=== PATIENT | male | born 1935 | race Hispanic/Latino ===

== ENCOUNTER 2019-03-16 09:07 | Inpatient (IN) | payer MEDICARE, OTHER ==
--- NOTE | 2019-03-16 09:40 | ED PDOC ---
Arrival/HPI - General Time Seen by Provider: 03/16/19 09:18 Historian: Patient - History of Present Illness Narrative History of Present Illness (Text): 03/16/19 09:35 83 year old male, with past medical history of CVA x2 both treated with TPA, Bladder Cancer, A. fibrillation on Coumadin and Metoprolol, HTN, GERD, CHF, CAD, hyperlipidemia, and PVD, presents to the ED for evaluation of worsening shortness of breath associated with dyspnea on exertion and bilateral lower extremity swelling for past couple weeks. Patient additionally notes mild fever but denies any chills or night sweats. He reports taking his medication yesterday, which includes 40mg of Lasix, with improvement to leg swelling. He notes chronic left lower extremity wound, unchanged from previous. Patient denies any other associated somatic complaints. Patient denies any chills, h eadache, dizziness, slurred speech, weakness/numbness, chest pain, diaphoresis, abdominal pain, nausea, vomiting, diarrhea, constipation, back pain, neck pain, or any other complaints. PMD: Dr. Taylor [employer] B[employer]: Dr. Bourgeois Time/Duration: > week Symptom Onset: Gradual Symptom Course: Worsening Activities at Onset: Light Context: Home Past Medical History - Provider Review Nursing Documentation Reviewed: Yes - Infectious Disease Hx of Infectious Diseases: None - Tetanus Immunization Tetanus Immunization: Unknown - Cardiac Hx Cardiac Disorders: Yes Hx Congestive Heart Failure: Yes Hx Hypertension: Yes - Pulmonary Hx Respiratory Disorders: No - Neurological HX Cerebrovascular Accident: Yes - HEENT Hx HEENT Disorder: Yes Hx Cataracts: Yes (GUTIERREZ) - Renal Hx Renal Disorder: No - Endocrine/Metabolic Hx Diabetes Mellitus Type 2: Yes - Hematological/Oncological Hx Cancer: Yes - Integumentary Hx Basal Cell Carcinoma: No Other/Comment: skin in both lower ext hyperpigmented - Musculoskeletal/Rheumatological Hx Musculoskeletal Disorders: Yes - Gastrointestinal Hx Gastroesophageal Reflux: Yes - Genitourinary/Gynecological Hx Genitourinary Disorders: Yes (bladder tumor removed 2010) Hx Prostate Problems: Yes - Psychiatric Hx Psychophysiologic Disorder: No Hx Substance Use: No - Past Surgical History Past Surgical History: Unable to Obtain - Surgical History Other/Comment: pilonidal cyst removed. TURP. Partial Uterotomy - Anesthesia Hx Anesthesia: Yes Hx Anesthesia Reactions: No - Suicidal Assessment Feels Threatened In Home Enviroment: No Family/Social History - Physician Review Nursing Documentation Reviewed: Yes Family/Social History: Unknown Family HX Smoking Status: Never Smoked Hx Alcohol Use: No Hx Substance Use: No Hx Substance Use Treatment: No Allergies/Home Meds Allergies/Adverse Reactions: Allergies No Known Allergies Allergy (Verified 03/16/19 11:40) Home Medications: Home Meds Medication Instructions Recorded Confirmed Warfarin [Coumadin] 3.5 mg PO 1800 03/16/19 03/16/19 Review of Systems - Physician Review All systems were reviewed & negative as marked: Yes - Review of Systems Constitutional: Fevers Eyes: absent: Vision Changes Respiratory: SOB. absent: Cough, Sputum Cardiovascular: Edema, LYONS. absent: Chest Pain Gastrointestinal: absent: Abdominal Pain, Diarrhea, Nausea, Vomiting Genitourinary Male: absent: Dysuria, Frequency, Urinary Output Changes Musculoskeletal: absent: Back Pain, Neck Pain Skin: absent: Rash Neurological: absent: Headache, Dizziness, Focal Weakness Endocrine: absent: Diaphoresis Psychiatric: absent: Anxiety, Depression Physical Exam Vital Signs Reviewed: Yes Vital Signs Temp Pulse Resp BP Pulse Ox 03/16/19 09:18 98.4 F 143 H 18 136/93 H 96 Temperature: Afebrile Blood Pressure: Normal Pulse: Tachycardic Respiratory Rate: Normal Appearance: Positive for: Well-Appearing, Non-Toxic, Comfortable Pain Distress: None Mental Status: Positive for: Alert and Oriented X 3 - Systems Exam Head: Present: Atraumatic, Normocephalic Pupils: Present: PERRL Extroacular Muscles: Present: EOMI Conjunctiva: Present: Normal Mouth: Present: Moist Mucous Membranes Neck: Present: Normal Range of Motion Respiratory/Chest: Present: Good Air Exchange, Other (Mild bibasilar crackles). No: Respiratory Distress, Accessory Muscle Use Cardiovascular: Present: Normal S1, S2, Irregular Rhythm (Irregularly irregular rhythm), Tachycardic. No: Murmurs Abdomen: No: Tenderness, Distention, Peritoneal Signs Back: Present: Normal Inspection Upper Extremity: Present: Normal Inspection. No: Cyanosis, Edema Lower Extremity: Present: Edema (Bilateral +2 pitting edema), Other (Left lower extremity PVD with ulcer superficial to left anterior headley, mild erythema, no foul odor or crepitus.) Neurological: Present: GCS=15, CN II-XII Intact, Speech Normal Skin: Present: Warm, Dry, Normal Color. No: Rashes Psychiatric: Present: Alert, Oriented x 3, Normal Insight, Normal Concentration Medical Decision Making ED Course and Treatment: 03/16/19 09:30 Impression: 83 year old male presents to the Ed for evaluation of worsening shortness of breath associated with dyspnea on exertion and bilateral lower extremity swelling. Differential Diagnosis included but are not limited to Afib with RVR vs. worsening CHF. Plan: -- VBG -- EKG -- Labs -- Chest X-ray -- Cardizem -- IV Fluids -- Blood culture -- Urinalysis -- Reassess and disposition Prior Visits: Notes and results from previous visits were reviewed. Progress Notes: 03/16/19 09:29 EKG reviewed, shows A-fib @145 bpm, no STEMI. 03/16/19 10:13 cardizem given with improvement of HR into the 110's, pt in NAD, notes improvement of symptoms. Labs reviewed, mildly increased lactic without elevated wbc or febrile. BNP elevated: likely CHF exacerbation. XR reviewed: pulmonary vascular congestion, no appreciable consolidation noted. Lasix ordered pt in NAD, paged Dr. Taylor's service 03/16/19 10:[address] Taylor, who is aware and agrees with ED management plan, accepts patient admission to Telemetry under his service. pt agreeable to plan 03/16/19 10:37 Chest X-ray reviewed by radiologist, shows: IMPRESSION: Moderate cardiomegaly. Moderate vascular and interstitial congestion - RAD Interpretation Radiology Orders: 03/16/19 09:19 CHEST PORTABLE [RAD] Stat Orthopedic Specialist: Radiologist - Medication Orders Current Medication Orders: diltiaZEM IVPB 100mg in NS (Cardizem 100mg In Ns) 100 mls @ 5 mls/hr IV .Q20H PRN; Protocol PRN Reason: TITRATE PER MD ORDER Discontinued Medications Diltiazem HCl (Cardizem) 15 mg IVP STAT STA Stop: 03/16/19 09:30 - Scribe Statement The provider has reviewed the documentation as recorded by the Scribe Isaiah Palomino. All medical record entries made by the Scribe were at my direction and personally dictated by me. I have reviewed the chart and agree that the record accurately reflects my personal performance of the history, physical exam, medical decision making, and the department course for this patient. I have also personally directed, reviewed, and agree with the discharge instructions and disposition. Disposition/Present on Arrival - Present on Arrival Any Indicators Present on Arrival: No History of DVT/PE: No History of Uncontrolled Diabetes: No Urinary Catheter: No History Surgical Site Infection Following: None - Disposition Have Diagnosis and Disposition been Completed?: Yes Diagnosis: CHF exacerbation, Atrial fibrillation with RVR Disposition: HOSPITALIZED Disposition Time: 10:17 Patient Problems: Current Active Problems Problem Status Onset CHF exacerbation Acute Atrial fibrillation with RVR Acute Condition: STABLE
[2019-03-16 09:46] LABS: BASO # 0.01 K/mm3 (0.0-2.0); BASO % 0.2 % (0.0-3.0); EOS % 0.6 % (1.5-5.0); HEMOGLOBIN 12.5 g/dL (14.0-18.0); LYMPH # 0.9 (1.2-3.4); LYMPH % 13.5 % (22.0-35.0); MEAN CELL VOLUME 88.1 fl (80.0-105.0); MEAN CORPUSCULAR HEMOGLOBIN 28.1 pg (25.0-35.0); MEAN CORPUSCULAR HGB CONC 31.9 g/dl (31.0-37.0); MEAN PLATELET VOLUME 9.6 fl (7.0-11.0); MONO # 0.7 (0.1-0.6); MONO % 10.7 % (1.0-6.0); RBC 4.45 10^6/uL (3.5-6.1); RED CELL DISTRIBUTION WIDTH 15.6 % (11.5-14.5); WHITE BLOOD COUNT 6.7 10^3/uL (4.5-11.0)
[2019-03-16 09:47] LABS: VENOUS BLOOD GAS BASE EXCESS 2.7 mmol/L (0.0-2.0); VENOUS BLOOD GAS PO2 50 mm/Hg (30-55); VENOUS BLOOD PH 7.41 (7.32-7.43)
[2019-03-16 09:54] LABS: ALB/GLOB RATIO 1.1 (1.1-1.8); ALBUMIN 3.8 g/dL (3.0-4.8); AST/SGOT 27 U/L (17-59); BLOOD UREA NITROGEN 18 mg/dL (7-21); CALCIUM 8.9 mg/dL (8.4-10.5); GFR NON-AFRICAN AMERICAN 58; INR 1.84; PARTIAL THROMBOPLASTIN TIME 36.2 Seconds (26.9-38.3); PROTHROMBIN TIME 20.8 SECONDS (9.4-12.5)
[2019-03-16] MEDS: diltiaZEM IVPB 100mg in NS 100 ML IV PRN (09:55)
[2019-03-16 10:04] LABS: ALT/SGPT < 6 U/L (7-56)
[2019-03-16 10:06] LABS: B-TYPE NATRIURETIC PEPTIDE 4170 pg/mL (0-450); TROPONIN I 0.02 ng/mL
--- NOTE | 2019-03-16 10:30 | RAD ---
Date of service: 03/16/2019 HISTORY: sob COMPARISON: 10/28/2013 TECHNIQUE: 1 view obtained. FINDINGS: LUNGS: Moderate vascular and interstitial congestion PLEURA: No significant pleural effusion identified, no pneumothorax apparent. CARDIOVASCULAR: No aortic atherosclerotic calcification present. Moderate cardiomegaly. Moderate vascular and interstitial congestion OSSEOUS STRUCTURES: No significant abnormalities. VISUALIZED UPPER ABDOMEN: Normal. OTHER FINDINGS: None. IMPRESSION: Moderate cardiomegaly. Moderate vascular and interstitial congestion
[2019-03-16 11:15] LABS: URINE BILIRUBIN NEGATIVE (NEGATIVE); URINE BLOOD NEGATIVE (NEGATIVE); URINE GLUCOSE (UA) NEGATIVE (NEGATIVE); URINE LEUKOCYTE ESTERASE NEGATIVE Leu/uL (NEGATIVE); URINE PROTEIN 30 mg/dL (<30 mg/dL)
[2019-03-16 11:18] LABS: URINE APPEARANCE CLEAR (CLEAR); URINE COLOR YELLOW (YELLOW)
[2019-03-16 11:27] LABS: URINE BACTERIA FEW /hpf; URINE EPITHELIAL CELLS 0 - 2 /hpf (0-5); URINE RBC 0 - 2 /hpf (0-2); URINE WBC 0 - 2 /hpf (0-6)
[2019-03-16 14:07] LABS: VENOUS BLOOD GAS BASE EXCESS 8.1 mmol/L (0.0-2.0); VENOUS BLOOD GAS PO2 116 mm/Hg (30-55); VENOUS BLOOD PH 7.45 (7.32-7.43)
[2019-03-16 15:22] VITALS: BMI 41.9
[2019-03-16] MEDS ORDERED: Influenza Vaccine 60 mcg/0.5 mL SYR (4YR UP) IM ONE (15:22)
[2019-03-16] MEDS ORDERED: Pneumococcal 23-Valent Vaccine IM ONE (15:22)
[2019-03-16] MEDS: Warfarin 3 MG, Warfarin 0.5 MG PO SCH (18:22)
--- NOTE | 2019-03-16 20:14 | CARD ---
APPROVED REPORT Date of service: 03/16/2019 EKG Measurement Heart [id number] <Conclusion> Atrial fibrillation with rapid ventricular response Incomplete right bundle branch block Nonspecific T wave abnormality, probably digitalis effect Abnormal ECG
--- NOTE | 2019-03-16 23:33 | HP ---
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 The patient was admitted to the hospital with shortness of breath and rapid atrial fibrillation. The patient states that he has had increasing shortness of breath and fatigue over the last 4 to 5 days. The patient denies any chest pain, does complain of palpitations. Denies any diaphoresis, nausea, vomiting, lightheadedness or dizziness. REVIEW OF SYSTEMS: Cardiac: Positive palpitations and shortness of breath. Respiratory: Positive for shortness of breath and dyspnea on exertion. Gastrointestinal: Negative for nausea, vomiting or diarrhea. Genitourinary: Negative for frequency, urgency or hematuria. Neurological: Positive only for some mild confusion. SOCIAL HISTORY: The patient is nonsmoker, nondrinker. CONSULTANTS: Dr. 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 He was evaluated in the emergency room and had an elevated BNP, rapid atrial fibrillation and signs of congestive heart failure. PHYSICAL EXAMINATION GENERAL: This is a well-developed, slightly obese white male, lying flat with mild shortness of breath. CARDIAC: Irregularly irregular control with rapid ventricular response. CHEST: Shows decreased breath sounds at both bases, but no rales. ABDOMEN: Obese, but benign. EXTREMITIES: Show chronic stasis dermatitis and edema. NEUROLOGICAL: Grossly intact except for loss of vision bilaterally, decreased visual acuity. Normal strength in the upper and lower extremities. 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 Brayan Taylor MD
[2019-03-17] MEDS: diltiaZEM IVPB 100mg in NS 100 ML IV PRN (04:53)
[2019-03-17] MEDS ORDERED: Digoxin 500 mcg/2ml (0.5 mg/2ml) Inj IVP ONE ×2 (09:28→13:00)
[2019-03-17] MEDS ORDERED: Metoprolol Succinate 50 mg XL Tab PO SCH (10:00)
--- NOTE | 2019-03-17 12:46 | PN ---
DATE: 03/17/2019 SUBJECTIVE: An 83-year-old white male admitted to the hospital with congestive heart failure, rapid atrial fibrillation. The patient has markedly improved on diltiazem drip. His heart rate is still 125. His blood pressure 117/82. He is tolerating his diet well. Vital signs are stable. He is afebrile. BUN and creatinine are stable at 18 and 1.2. He was seen in consultation by Dr. Harper. Plan is to continue treatment to control his rapid atrial fibrillation and his heart failure. Brayan Taylor MD
[2019-03-17] MEDS: Clobetasol 0.05% Oint(15 gm) TOP SCH ×2 (15:35→18:53)
[2019-03-17] MEDS: Warfarin 3 MG, Warfarin 0.5 MG PO SCH (18:53)
[2019-03-18 06:39] LABS: BASO # 0.01 K/mm3 (0.0-2.0); BASO % 0.2 % (0.0-3.0); EOS # 0.1 (0.0-0.7); EOS % 1.4 % (1.5-5.0); HEMOGLOBIN 12.3 g/dL (14.0-18.0); LYMPH # 0.7 (1.2-3.4); LYMPH % 10.9 % (22.0-35.0); MEAN CELL VOLUME 88.6 fl (80.0-105.0); MEAN CORPUSCULAR HGB CONC 31.6 g/dl (31.0-37.0); MEAN PLATELET VOLUME 9.7 fl (7.0-11.0); MONO # 0.7 (0.1-0.6); MONO % 10.1 % (1.0-6.0); RBC 4.39 10^6/uL (3.5-6.1); RED CELL DISTRIBUTION WIDTH 15.3 % (11.5-14.5); WHITE BLOOD COUNT 6.6 10^3/uL (4.5-11.0)
[2019-03-18 06:47] LABS: INR 1.76; PROTHROMBIN TIME 19.9 SECONDS (9.4-12.5)
[2019-03-18 07:14] LABS: LDL CHOLESTEROL 39 mg/dL (0-129)
[2019-03-18 08:01] LABS: ALB/GLOB RATIO 1.1 (1.1-1.8); ALBUMIN 3.4 g/dL (3.0-4.8); ALT/SGPT 12 U/L (7-56); AST/SGOT 28 U/L (17-59); BLOOD UREA NITROGEN 23 mg/dL (7-21); CALCIUM 8.4 mg/dL (8.4-10.5); GFR NON-AFRICAN AMERICAN > 60; HDL CHOLESTEROL 43 mg/dL (29-60)
--- NOTE | 2019-03-18 08:28 | CON ---
DATE: 03/17/2019 CONSULT SERVICE: Cardiology. REASON FOR CONSULTATION: Atrial fibrillation chronic, admitted with rapid rate as well as acute congestive heart failure secondary to systolic dysfunction (acute on chronic). 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 The patient was offered NOAC (new oral anticoagulation), but the patient cannot hold and the patient also got scared from TV commercial, but later on after having the stroke, at that point the patient does not want to take the Coumadin as well because of the frequent blood testing, but later on after the stroke the patient was convinced and was taking Coumadin, being followed by Dr. Culp, [facility]. He lives very close to Dr. Culp's office. The patient denies any chest pain, shortness of breath or any palpitation. PAST MEDICAL HISTORY: Significant for hypertension, hyperlipidemia, chronic atrial fibrillation from many years, initially refused anticoagulation, getting stroke status post tPA and now the patient is on Coumadin. SOCIAL HISTORY: Denies any smoking, denies any history of alcohol abuse, but says that he used to drink everyday, now and then red wine with dinner. CURRENT MEDICATIONS: The patient is taking at home Coumadin 3.5 mg daily, Crestor, metoprolol succinate 50 mg daily, losartan 25 mg daily and Lasix 50 mg daily. REVIEW OF SYSTEMS: As per HPI. PHYSICAL EXAMINATION GENERAL: Height of the patient 5 feet, weight of the patient 114 pounds, body mass index 42 kg/m2. VITAL SIGNS: Temperature afebrile, heart rate 122, blood pressure 101/65. HEENT: PERRLA. Extraocular muscles intact. NECK: Supple. No carotid bruit or thyromegaly. CHEST: Clear to auscultation. HEART: S1 and S2 regular. ABDOMEN: Soft. EXTREMITIES: Clubbing, cyanosis negative. LABORATORY DATA: Telemetry shows AFib with rate of 120. EKG shows AFib with heart rate of 115. Blood workup as follows; WBC 6.7, hemoglobin 12.5,hematocrit 39.2, platelet count 220. Chemistry shows sodium 130, potassium 4.3, chloride 104, carbon dioxide 26, anion gap of 14, BUN 18, creatinine 1.2. BNP 4170. IMPRESSION: An 83-year-old male with past medical history significant for chronic atrial fibrillation, history of cerebrovascular accident in 11/2017, status post tPA, since then the patient is on Coumadin. The patient cannot afford new oral anticoagulation, initially opted for baby aspirin because he also get scared from the TV commercial as well as affordability for new oral anticoagulation, now on Coumadin after the stroke. According to Dr. Culp, I spoke to Dr. 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 RECOMMENDATION: We will given 20 mg IV push Cardizem to slow the rate. Continue anticoagulation. Goal is to keep INR between 2 to 2.5 because the patient had a stroke as well. We will start verapamil to control the heart rate instead of metoprolol and discontinue losartan when the rate is controlled. We will also consider starting Entresto for reduced LV function. We will get an echo to assess LV function and once the patient stabilizes we will send back to Dr. Culp. Interim, we will treat aggressively for heart failure and will continue IV Lasix. Discussed with Dr. Taylor. We will follow with you. Also we will get lipid profile,TSH, and hemoglobin A1c. The patient is not a candidate for cardioversion because of longstanding history of AFib, but we will get echo to assess the chamber size of LV. Thank you Dr. Taylor for providing us the opportunity in taking care of the patient, Cosmo Renteria. Nino Harper MD cc: Brayan Taylor MD
[2019-03-18] MEDS ORDERED: Potassium Chloride 20 mEq ER Tab PO ONE (09:11)
[2019-03-18] MEDS: SACUBITRIL 24mg/VALSARTAN 26mg tab PO SCH ×2 (10:12→18:24)
[2019-03-18] MEDS: Clobetasol 0.05% Oint(15 gm) TOP SCH ×2 (10:18→18:27)
--- NOTE | 2019-03-18 11:50 | PN ---
DATE: 03/18/2019 SUBJECTIVE: An 83-year-old white male, being admitted to the hospital with rapid atrial fibrillation, CHF, stasis dermatitis, and left lower leg ulceration. The patient still has rapid atrial fibrillation; heart rate is 112. Blood pressure 122/71. He is afebrile. Vital signs are stable. BUN and creatinine are stable. Potassium is 3.7. The patient is being switched to Cardizem to control his rapid atrial fibrillation. I have also asked Dr. Greene, in consultation for opinion on his lower leg ulceration which at this point appears dry and stasis dermatitis. Continue on anticoagulation. Physical examination is unchanged. His chest is clear. His heart is irregularly irregular with rapid ventricular response. The patient edema. There is a dry eschar of the lateral left lower leg. Brayan Taylor MD
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
--- NOTE | 2019-03-18 13:45 | PN ---
DATE: 03/18/2019 REASON FOR CONSULTATION AND FOLLOWUP: Atrial fibrillation chronic, atrial fibrillation rapid rate as well as acute decompensated congestive heart failure secondary to acute on chronic systolic dysfunction. SUBJECTIVE: The patient feels better, wanted to go home. PHYSICAL EXAMINATION: GENERAL: Lying flat on the bed, not in apparent distress. VITAL SIGNS: Temperature afebrile, heart rate 87, blood pressure 122/71. HEENT: PERRLA. Extraocular muscles intact. NECK: Supple. No carotid bruits or thyromegaly. CHEST: Clear to auscultation. HEART: S1, S2. Regular. ABDOMEN: Soft. EXTREMITIES: Clubbing, cyanosis negative. LABORATORY DATA: Blood workup: WBC 6.6, hemoglobin 12.3, hematocrit 38.9, platelet count 191. Chemistry showed sodium 139, potassium 3.7, chloride 97, carbon dioxide 37, anion gap 9, BUN 23, creatinine 1.1. IMPRESSION: An 83-year-old man with a past medical history significant for chronic atrial fibrillation, history of cerebrovascular accident in 11/2017, history of tPA, since then, the patient is on Coumadin. Initially the patient refused and reluctant for anticoagulation, being followed by Dr. Bourgeois and lives very close to Dr. Bourgeois's office. Yesterday, I spoke to Dr. Bourgeois on cell phone to get more information about the patient on [phone] and mentioned that no significant history of coronary artery disease, no documentation, and according to him, the coronaries appears to be okay, but history of decompensated heart failure and some element of noncompliance, who admitted yesterday with acute decompensated congestive heart failure, atrial fibrillation with rapid ventricular rate. The patient was started on two doses of digoxin and verapamil, rate is well controlled, started aggressive diuresis. RECOMMENDATION: Continue anticoagulation. The patient was started on IV digoxin two doses, started verapamil and IV Cardizem discontinued. Heart rate is well controlled. The patient's losartan was discontinued, started on Entresto and Lasix IV was given. The patient is improving. Continue IV diuresis. Continue spironolactone. Continue Entresto for heart failure and verapamil p.r.n. Continue atorvastatin and Lasix. We will assess LV function by echo. Once it is available, we will read it and we will follow. Further recommendations will be made. We will repeat the blood workup in the morning. We will give 40 of K-Dur to supplement and repeat the blood workup in the morning. We will repeat PT INR tomorrow and we will follow with you. Possible discharge home tomorrow. Today INR was 1.76, probably we will increase to 4 mg from today. We will also give 40 of K-Dur also to supplement ongoing loss as well as loss of potassium. Thank you Dr. Taylor for providing us the opportunity in taking care of the patient, Cosmo Renteria. Nino Harper MD
--- NOTE | 2019-03-18 14:32 | RAD ---
Date of service: 03/18/2019 PROCEDURE: Radiographs of the bilateral Tibiae and Fibulae. HISTORY: r/o osteo COMPARISON: None available. TECHNIQUE: Frontal and lateral views obtained. 4 views obtained. FINDINGS: BONES: RIGHT TIBIA: No fracture or destructive lesion. Old fracture deformities of the proximal tibia and fibula LEFT TIBIA: No fracture or destructive lesion. JOINT SPACES: RIGHT TIBIA: Normal. LEFT TIBIA: Normal. SOFT TISSUES: RIGHT TIBIA: Normal. LEFT TIBIA: Normal. OTHER FINDINGS: None. IMPRESSION: No acute findings
--- NOTE | 2019-03-18 14:34 | US ---
PROCEDURE: Lower extremity KINGS exam HISTORY: Peripheral vascular disease with pain and ulceration. Previous smoker PHYSICIAN(S): Davey Jaquez MD. FINDINGS: The resting KINGS's are normal: right, 1.27and left, 1.45. The brachial systolic pressures are symmetric. The high thigh pressures and waveforms are relatively normal. The calf PVR waveforms augment normally. No significant gradients are noted across the thighs. The ankle and metatarsal waveforms are relatively normal and symmetric. No significant pressure gradients are noted across the lower legs. IMPRESSION: 1. Normal KINGS and PVR examination at rest.
--- NOTE | 2019-03-18 19:10 | CARD ---
APPROVED REPORT Date of service: 03/17/2019 EXAM: Two-dimensional and M-mode echocardiogram with Doppler and color Doppler. INDICATION Atrial Fibrillation Cardiomyopathy Congestive Heart Failure 2D DIMENSIONS Left Atrium (2D)4.9 (1.6-4.0cm)IVSd1.4 (0.7-1.1cm) LVDd5.6 (3.9-5.9cm)PWd1.2 (0.7-1.1cm) LVDs4.8 (2.5-4.0cm)FS (%) 14.6 % LVEF (%)31.2 (>50%) M-Mode DIMENSIONS Aortic Root3.20 (2.2-3.7cm)Aortic Cusp Exc.2.20 (1.5-2.0cm) Aortic Valve AoV Peak Vbsxzuan515.0cm/Jen Peak GR.4mmHg Mitral Valve E/A ratio0.0 TDI E/Lateral E'0.0E/Medial E'0.0 Tricuspid Valve TR Peak [id number]/sRAP [id number] Peak Gr.16mmHg [id number] LEFT VENTRICLE The Left Ventricle is borderline dilated. There is mild to moderate concentric left ventricular hypertrophy. The systolic function is moderately impaired.EF-35% There is moderate global hypokinesis of the left ventricle. pt was in A fib No left ventricle thrombus noted on this study. There is no ventricular septal defect visualized. There is no left ventricular aneurysm. There is no mass noted in the left ventricle. RIGHT VENTRICLE The right ventricle is moderately dilated. There is normal right ventricular wall thickness. Systolic function RVis mildly to moderately reduced. ATRIA The left atrium is moderately dilated. The right atrium is moderately dilated. The interatrial septum is intact with no evidence for an atrial septal defect. AORTIC VALVE The aortic valve is thickened but opens well. There is mild aortic regurgitation. There is no aortic valvular stenosis. There is no aortic valvular vegetation. MITRAL VALVE The mitral valve is thickened but opens well. Mitral regurgitation is moderate to severe. The mitral regurgitant jet is eccentrically directed. There is no mitral valve stenosis. There is no evidence of mitral valve prolapse. TRICUSPID VALVE The tricuspid valve leaflets are thickened or calcified, but open well. There is mild tricuspid regurgitation.RVSP-26 mmof Hg. There is no tricuspid valve stenosis. There is no tricuspid valve prolapse or vegetation. PULMONIC VALVE The pulmonic valve is mildly thickened. There is trace to mild pulmonic valvular regurgitation. There is no pulmonic valvular stenosis. GREAT VESSELS The aortic root is normal in size. The ascending aorta is normal in size. The pulmonary artery is normal. The IVC is normal in size and collapses >50% with inspiration. PERICARDIAL EFFUSION There is no pleural effusion. There is no pericardial effusion. <Conclusion> The Left Ventricle is borderline dilated. There is mild to moderate concentric left ventricular hypertrophy. The systolic function is moderately impaired.EF-35% The right ventricle is moderately dilated. Systolic function RVis mildly to moderately reduced. There is mild aortic regurgitation. There is no aortic valvular stenosis. Mitral regurgitation is moderate to severe. The mitral regurgitant jet is eccentrically directed. There is mild tricuspid regurgitation.RVSP-26 mmof Hg. The IVC is normal in size and collapses >50% with inspiration. There is no pericardial effusion.
[2019-03-19 07:15] LABS: BASO # 0.01 K/mm3 (0.0-2.0); BASO % 0.2 % (0.0-3.0); EOS # 0.1 (0.0-0.7); EOS % 1.6 % (1.5-5.0); HEMOGLOBIN 12.5 g/dL (14.0-18.0); LYMPH # 0.6 (1.2-3.4); MEAN CELL VOLUME 88.4 fl (80.0-105.0); MEAN CORPUSCULAR HEMOGLOBIN 27.4 pg (25.0-35.0); MEAN CORPUSCULAR HGB CONC 30.9 g/dl (31.0-37.0); MEAN PLATELET VOLUME 9.8 fl (7.0-11.0); MONO # 0.8 (0.1-0.6); MONO % 12.3 % (1.0-6.0); RBC 4.57 10^6/uL (3.5-6.1); RED CELL DISTRIBUTION WIDTH 15.3 % (11.5-14.5); WHITE BLOOD COUNT 6.3 10^3/uL (4.5-11.0)
[2019-03-19 07:21] LABS: INR 1.74; PROTHROMBIN TIME 19.7 SECONDS (9.4-12.5)
[2019-03-19 07:41] LABS: BLOOD UREA NITROGEN 26 mg/dL (7-21); CALCIUM 8.5 mg/dL (8.4-10.5); GFR NON-AFRICAN AMERICAN > 60
--- NOTE | 2019-03-19 10:30 | CP.PCM.PN ---
Subjective - Date & Time of Evaluation Date of Evaluation: 03/19/19 Time of Evaluation: 06:35 - Subjective Subjective: Awake,no distress Reason for consultation and follow up:Cardiac evaluation and follow up rapid ventricular rate atrial fibrillation, history of chronic atrial fibrillation,on Coumadin, CHF, CVA x 2 with TPA given, admitted for decompensated acute on chronic systolic dysfunction congestive heart failure and rapid ventricular rate atrial fibrillation Seen and examined by me and Dr. Harper Objective - Vital Signs/Intake and Output Vital Signs (last 24 hours): Temp Pulse Resp BP Pulse Ox 98 F 115 H 20 102/71 98 03/19/19 06:00 03/19/19 06:00 03/19/19 06:00 03/19/19 06:00 03/19/19 06:00 Intake and Output: 03/19/19 03/19/19 06:59 18:59 Intake Total 540 Output Total 400 Balance 140 - Medications Medications: Current Medications Atorvastatin Calcium (Lipitor) 40 mg PO HS [facility] Last Admin: 03/18/19 21:03 Dose: 40 mg Clobetasol Propionate (Temovate 0.05%) 0 gm TOP BID [facility] Last Admin: 03/18/19 18:27 Dose: 1 applic Furosemide (Lasix) 40 mg IVP 0600,1800 [facility] Last Admin: 03/19/19 05:56 Dose: 40 mg Ceftaroline Fosamil 400 mg/ (Sodium Chloride) 100 mls @ 100 mls/hr IVPB 0600,1800 [facility]; Protocol Stop: 03/26/19 06:01 Last Admin: 03/19/19 05:52 Dose: 100 mls/hr Losartan Potassium (Cozaar) 25 mg PO DAILY [facility] Last Admin: 03/17/19 09:10 Dose: 25 mg Sacubitril/Valsartan (Entresto 24 Mg-26 Mg Tablet) 1 each PO BID [facility] Last Admin: 03/18/19 18:24 Dose: Not Given Spironolactone (Aldactone) 25 mg PO DAILY [facility] Last Admin: 03/18/19 10:18 Dose: 25 mg Verapamil HCl (Calan Tab) 40 mg PO TID [facility] Last Admin: 03/18/19 18:27 Dose: 40 mg Verapamil HCl (Verapamil Inj) 2.5 mg IVP Q6H PRN PRN Reason: for heart rate >130 Warfarin Sodium (Coumadin) 4 mg PO 1800 [facility] Last Admin: 03/18/19 18:27 Dose: 4 mg - Labs Labs: 03/19/19 07:00 03/19/19 07:00 PT 19.7 SECONDS (9.4-12.5) H 03/19/19 07:00 INR 1.74 03/19/19 07:00 APTT 36.2 Seconds (26.9-38.3) 03/16/19 09:30 - Constitutional Appears: Non-toxic, No Acute Distress - Head Exam Head Exam: NORMAL INSPECTION, NORMOCEPHALIC - Eye Exam Eye Exam: Normal appearance Pupil Exam: NORMAL ACCOMODATION - ENT Exam ENT Exam: Mucous Membranes Dry - Respiratory Exam Respiratory Exam: Decreased Breath Sounds, NORMAL BREATHING PATTERN - Cardiovascular Exam Cardiovascular Exam: Irregular Rhythm, +S1, +S2 Additional comments: atrial fibrillation - GI/Abdominal Exam GI & Abdominal Exam: Soft, Normal Bowel Sounds - Extremities Exam Additional comments: 3-4+ edema - Neurological Exam Neurological Exam: Alert, Awake - Psychiatric Exam Psychiatric exam: Normal Affect, Normal Mood - Skin Skin Exam: Dry, Normal Color, Warm Assessment and Plan - Assessment and Plan (Free Text) Assessment: An 83 year old male who came in to the ER due to shortness of breath and leg edema. 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 Admitted for rapid atrial fibrillation and admitted for decompensated acute on chronic systolic dysfunction congestive heart failure. Aggressively diurese. Atrial fibrillation controlled rate. Follows up with Dr. Bourgeois. As per Dr. Bourgeois, no signific ant coronary artery disease. Echo done today and showed moderately impaired systolic dysfunction LVEF 35%, RV moderately dilated, mild aortic regurgitation, moderate to severe mitral regurgitation, mild tricuspid regurgitation RVSP 26 mmHg, Plan: Denies shortness of breath Aggressively diurese Heart rate atrial fibrillation, controlled rate Blood pressure stable On Lipitor 40 mg daily, Lasix 40 mg BID,Cozaar 25 mg daily, Entresto 1 tab BID Verapamil 40 mg TID, Coumadin 4 mg daily INR today 1.74 Continue current treatment Continue current medications Will follow up Plan and treatment discussed with Dr. Harper
[2019-03-19] MEDS: SACUBITRIL 24mg/VALSARTAN 26mg tab PO SCH ×2 (11:22→18:31)
--- NOTE | 2019-03-19 11:25 | CP.PCM.PN ---
<Anum Haley - Last Filed: 03/19/19 11:23> Subjective - Date & Time of Evaluation Date of Evaluation: 03/19/19 Time of Evaluation: 11:23 - Subjective Subjective: Podiatry consult note for Drs. Chaudhary/Jc 83 year old male was seen and evaluated with Dr. Chaudhary due to complaints of bilateral lower extremity pain with ulcerations. He notes chronic left lower extremity wound, unchanged from previous. No acute overnight events. Patient denies any chills, headache, dizziness, slurred speech, weakness/numbness, chest pain, diaphoresis, abdominal pain, nausea, vomiting, diarrhea, constipation, back pain, neck pain, or any other complaints. Objective - Vital Signs/Intake and Output Vital Signs (last 24 hours): Temp Pulse Resp BP Pulse Ox 98 F 115 H 20 102/71 98 03/19/19 06:00 03/19/19 06:00 03/19/19 06:00 03/19/19 06:00 03/19/19 06:00 Intake and Output: 03/19/19 03/19/19 06:59 18:59 Intake Total 540 Output Total 400 Balance 140 - Medications Medications: Current Medications Atorvastatin Calcium (Lipitor) 40 mg PO HS [facility] Last Admin: 03/18/19 21:03 Dose: 40 mg Clobetasol Propionate (Temovate 0.05%) 0 gm TOP BID [facility] Last Admin: 03/18/19 18:27 Dose: 1 applic Collagenase (Santyl) 0 gm TOP DAILY [facility] Furosemide (Lasix) 40 mg IVP 0600,1800 [facility] Last Admin: 03/19/19 05:56 Dose: 40 mg Ceftaroline Fosamil 400 mg/ (Sodium Chloride) 100 mls @ 100 mls/hr IVPB 0600,1800 [facility]; Protocol Stop: 03/26/19 06:01 Last Admin: 03/19/19 05:52 Dose: 100 mls/hr Lactic Acid (Lac-Hydrin 12% Cream (140 G)) 0 ea TOP DAILY [facility] Losartan Potassium (Cozaar) 25 mg PO DAILY [facility] Last Admin: 03/17/19 09:10 Dose: 25 mg Sacubitril/Valsartan (Entresto 24 Mg-26 Mg Tablet) 1 each PO BID [facility] Last Admin: 03/18/19 18:24 Dose: Not Given Spironolactone (Aldactone) 25 mg PO DAILY [facility] Last Admin: 03/18/19 10:18 Dose: 25 mg Verapamil HCl (Calan Tab) 40 mg PO TID [facility] Last Admin: 03/18/19 18:27 Dose: 40 mg Verapamil HCl (Verapamil Inj) 2.5 mg IVP Q6H PRN PRN Reason: for heart rate >130 Warfarin Sodium (Coumadin) 4 mg PO 1800 [facility] Last Admin: 03/18/19 18:27 Dose: 4 mg - Labs Labs: 03/19/19 07:00 03/19/19 07:00 PT 19.7 SECONDS (9.4-12.5) H 03/19/19 07:00 INR 1.74 03/19/19 07:00 APTT 36.2 Seconds (26.9-38.3) 03/16/19 09:30 - Constitutional Appears: Well, Non-toxic, No Acute Distress - Head Exam Head Exam: ATRAUMATIC, NORMOCEPHALIC - Extremities Exam Additional comments: Bilateral Lower Extremity Exam VASC: DP and PT 2/4 bilaterally, CFT less than 3 seconds X 10, TG within normal limits, mild lower extremity edema noted NEURO: epicritic and protective sensations intact DERM: both legs with chronic skin changes due to peripheral vascular disease LEFT: ulceration measuring 3 cm X 2 cm X 0.3 cm noted to the lateral aspect of the left leg, moderate purulent drainage, 50% fibrotic and 50% granular base, surrounding erythema, no maceration, no probe to bone, no tracking, no tunneling, no malodor RIGHT: areas of healing and epithelialized wounds noted to the right leg, no clinical signs of infection - Neurological Exam Neurological Exam: Alert, Awake, Oriented x3 - Psychiatric Exam Psychiatric exam: Normal Affect, Normal Mood Assessment and Plan - Assessment and Plan (Free Text) Assessment: 83 y/o male patient seen and evaluated with left leg ulceration and chronic skin changes secondary to PVD Plan: Patient seen and evaluated with Dr. Greene Plan discussed with attending Chart, labs and vitals were reviewed- afebrile, absent leukocytosis Ordered B/L lower extremity x-rays Obtained Wound Culture- follow up results Placed Infectious Disease consult, recommendations appreciated Ordered KINGS/PVR to assess blood flow to b/l LE Wound cleaned and dressed with Mepilex Santyl and LacHydrin ordered for future dressing changes Podiatry will continue to follow patient while in house Thank you for the consult <Dania Greene - Last Filed: 03/21/19 20:30> Objective - Vital Signs/Intake and Output Vital Signs (last 24 hours): Temp Pulse Resp BP Pulse Ox 97 F L 90 18 116/82 98 03/21/19 16:38 03/21/19 17:52 03/21/19 16:38 03/21/19 17:52 03/21/19 16:38 - Medications Medications: Current Medications Aspirin (Ecotrin) 81 mg PO DAILY [facility] Last Admin: 03/21/19 09:36 Dose: 81 mg Atenolol (Tenormin) 12.5 mg PO BID [facility] Last Admin: 03/21/19 17:52 Dose: 12.5 mg Atorvastatin Calcium (Lipitor) 40 mg PO HS [facility] Last Admin: 03/20/19 22:15 Dose: 40 mg Clobetasol Propionate (Temovate 0.05%) 0 gm TOP BID [facility] Last Admin: 03/21/19 17:52 Dose: Not Given Collagenase (Santyl) 0 gm TOP DAILY [facility] Last Admin: 03/21/19 09:37 Dose: 1 applic Furosemide (Lasix) 40 mg PO 0800,1400 [facility] Last Admin: 03/21/19 13:43 Dose: Not Given Ceftaroline Fosamil 400 mg/ (Sodium Chloride) 100 mls @ 100 mls/hr IVPB 0600,1800 [facility]; Protocol Stop: 03/26/19 06:01 Last Admin: 03/21/19 17:51 Dose: 100 mls/hr Lactic Acid (Lac-Hydrin 12% Cream (140 G)) 0 ea TOP DAILY [facility] Last Admin: 03/21/19 09:37 Dose: 1 applic Sacubitril/Valsartan (Entresto 24 Mg-26 Mg Tablet) 1 each PO BID [facility] Last Admin: 03/21/19 17:53 Dose: 1 each Simethicone (Mylicon Liq) 40 mg PO QID [facility] Last Admin: 03/21/19 18:35 Dose: 40 mg Spironolactone (Aldactone) 25 mg PO DAILY [facility] Last Admin: 03/21/19 09:33 Dose: Not Given Verapamil HCl (Calan Tab) 40 mg PO TID [facility] Last Admin: 03/21/19 17:50 Dose: 40 mg Verapamil HCl (Verapamil Inj) 2.5 mg IVP Q6H PRN PRN Reason: for heart rate >130 Warfarin Sodium (Coumadin) 4 mg PO 1800 [facility] Last Admin: 03/21/19 17:51 Dose: 4 mg - Labs Labs: 03/20/19 06:50 03/20/19 06:50 PT 22.3 SECONDS (9.4-12.5) H 03/20/19 06:50 INR 1.97 03/20/19 06:50 APTT 36.2 Seconds (26.9-38.3) 03/16/19 09:30 Attending/Attestation - Attestation I have personally seen and examined this patient.: Yes I have fully participated in the care of the patient.: Yes
[2019-03-19] MEDS: Clobetasol 0.05% Oint(15 gm) TOP SCH ×2 (11:26→18:41)
[2019-03-19] MEDS ORDERED: Digoxin 500 mcg/2ml (0.5 mg/2ml) Inj IVP ONE ×2 (15:58→20:00)
--- NOTE | 2019-03-19 19:06 | CP.PCM.PN ---
<Bertin Díaz - Last Filed: 03/19/19 19:02> Subjective - Date & Time of Evaluation Date of Evaluation: 03/19/19 Time of Evaluation: 07:00 - Subjective Subjective: Progress Note for Dr. Jean-Baptiste Patient seen and examined at bedside. No acute complaints at this time. Patient lying comfortably and as per nursing staff no acute or adverse events overnight. Patient with clean dressing on left lower extremity ulcer. Patient denied fever, chills, shortness of breath, chest pains, abdominal pains, nausea, vomiting or diarrhea. Objective - Vital Signs/Intake and Output Vital Signs (last 24 hours): Temp Pulse Resp BP Pulse Ox 98.6 F 104 H 18 128/64 98 03/19/19 18:00 03/19/19 18:31 03/19/19 18:00 03/19/19 18:32 03/19/19 06:00 - Medications Medications: Current Medications Atenolol (Tenormin) 12.5 mg PO BID [facility] Last Admin: 03/19/19 18:31 Dose: 12.5 mg Atorvastatin Calcium (Lipitor) 40 mg PO HS [facility] Last Admin: 03/18/19 21:03 Dose: 40 mg Clobetasol Propionate (Temovate 0.05%) 0 gm TOP BID [facility] Last Admin: 03/19/19 18:41 Dose: 1 applic Collagenase (Santyl) 0 gm TOP DAILY [facility] Digoxin (Lanoxin) 0.25 mg IVP ONCE ONE Stop: 03/19/19 20:01 Furosemide (Lasix) 40 mg IVP 0600,1800 [facility] Last Admin: 03/19/19 18:32 Dose: 40 mg Ceftaroline Fosamil 400 mg/ (Sodium Chloride) 100 mls @ 100 mls/hr IVPB 0600,1800 [facility]; Protocol Stop: 03/26/19 06:01 Last Admin: 03/19/19 18:33 Dose: 100 mls/hr Lactic Acid (Lac-Hydrin 12% Cream (140 G)) 0 ea TOP DAILY [facility] Sacubitril/Valsartan (Entresto 24 Mg-26 Mg Tablet) 1 each PO BID [facility] Last Admin: 03/19/19 18:31 Dose: 1 each Spironolactone (Aldactone) 25 mg PO DAILY [facility] Last Admin: 03/19/19 11:22 Dose: 25 mg Verapamil HCl (Calan Tab) 40 mg PO TID [facility] Last Admin: 03/19/19 18:31 Dose: 40 mg Verapamil HCl (Verapamil Inj) 2.5 mg IVP Q6H PRN PRN Reason: for heart rate >130 Warfarin Sodium (Coumadin) 4 mg PO 1800 [facility] Last Admin: 03/19/19 18:31 Dose: 4 mg - Labs Labs: 03/19/19 07:00 03/19/19 07:00 PT 19.7 SECONDS (9.4-12.5) H 03/19/19 07:00 INR 1.74 03/19/19 07:00 APTT 36.2 Seconds (26.9-38.3) 03/16/19 09:30 - Constitutional Appears: No Acute Distress, Chronically Ill - Head Exam Head Exam: ATRAUMATIC, NORMAL INSPECTION, NORMOCEPHALIC - Eye Exam Eye Exam: EOMI, Normal appearance, PERRL Pupil Exam: NORMAL ACCOMODATION, PERRL - ENT Exam ENT Exam: Mucous Membranes Dry - Neck Exam Neck Exam: Full ROM, Normal Inspection. absent: Lymphadenopathy - Respiratory Exam Respiratory Exam: Decreased Breath Sounds, NORMAL BREATHING PATTERN - Cardiovascular Exam Cardiovascular Exam: Tachycardia, Irregular Rhythm, +S1, +S2 - GI/Abdominal Exam GI & Abdominal Exam: Soft, Normal Bowel Sounds. absent: Tenderness - Extremities Exam Additional comments: B/l stasis dermatitis + lle ulccer cdi - Neurological Exam Neurological Exam: Alert, Awake, CN II-XII Intact, Oriented x3 - Psychiatric Exam Psychiatric exam: Normal Affect, Normal Mood Assessment and Plan - Assessment and Plan (Free Text) Assessment: ` acute chf exacerbation systolic dysfunction ` afib with rvr ` Chronic LLE Stasis Ulcer 3cm x 2cm x 0.3cm ` CAD ` coagulopathy ` HTN ` HLD ` Hypokalemia Plan: Patient is comfortable and wants to walk around the unit. Patient's shortness of breath has improved, continue diuresis with lasix 40mg BID, and as per Cardiology Dr. Harper, continue Entresto, aldactone, atenolol, and Digoxin. Patient is on anticoagulation for Afib, now with better rate control, on verapamil 40mg TID. INR 1.74, will continue with anticoagulation with coumadin 4mg HS. Patient with chronic LLE stasis afebrile, no leukocytosis, B/L lower extremity x-rays negative for acute pathology, fu Wound Culture, ID and podiatry on board, dressed wound with lac-hydrin and santyl. Continue asa and lipitor for CAD and HLD. As per CM, Referral sent to [facility], will follow up. <Nicolas Jean-Baptiste S - Last Filed: 03/19/19 20:41> Objective - Vital Signs/Intake and Output Vital Signs (last 24 hours): Temp Pulse Resp BP Pulse Ox 98.6 F 104 H 18 128/64 98 03/19/19 18:00 03/19/19 18:31 03/19/19 18:00 03/19/19 18:32 03/19/19 06:00 Intake and Output: 03/19/19 03/20/19 18:59 06:59 Intake Total 100 Balance 100 - Medications Medications: Current Medications Atenolol (Tenormin) 12.5 mg PO BID [facility] Last Admin: 03/19/19 18:31 Dose: 12.5 mg Atorvastatin Calcium (Lipitor) 40 mg PO HS [facility] Last Admin: 03/18/19 21:03 Dose: 40 mg Clobetasol Propionate (Temovate 0.05%) 0 gm TOP BID [facility] Last Admin: 03/19/19 18:41 Dose: 1 applic Collagenase (Santyl) 0 gm TOP DAILY [facility] Furosemide (Lasix) 40 mg IVP 0600,1800 [facility] Last Admin: 03/19/19 18:32 Dose: 40 mg Ceftaroline Fosamil 400 mg/ (Sodium Chloride) 100 mls @ 100 mls/hr IVPB 0600,1800 [facility]; Protocol Stop: 03/26/19 06:01 Last Admin: 03/19/19 18:33 Dose: 100 mls/hr Lactic Acid (Lac-Hydrin 12% Cream (140 G)) 0 ea TOP DAILY [facility] Sacubitril/Valsartan (Entresto 24 Mg-26 Mg Tablet) 1 each PO BID [facility] Last Admin: 03/19/19 18:31 Dose: 1 each Spironolactone (Aldactone) 25 mg PO DAILY [facility] Last Admin: 03/19/19 11:22 Dose: 25 mg Verapamil HCl (Calan Tab) 40 mg PO TID [facility] Last Admin: 04/18/19 18:31 Dose: 40 mg Verapamil HCl (Verapamil Inj) 2.5 mg IVP Q6H PRN PRN Reason: for heart rate >130 Warfarin Sodium (Coumadin) 4 mg PO 1800 [facility] Last Admin: 03/19/19 18:31 Dose: 4 mg - Labs Labs: 03/19/19 07:00 03/19/19 07:00 PT 19.7 SECONDS (9.4-12.5) H 03/19/19 07:00 INR 1.74 03/19/19 07:00 APTT 36.2 Seconds (26.9-38.3) 03/16/19 09:30 Assessment and Plan - Assessment and Plan (Free Text) Assessment: Pt seen and examined by me. I have reviewed the note of the medical office administrator and I agree with it. I have discussed the assessment and plan with the resident. I have reviewed the medications and the last labs.
[2019-03-19 20:51] VITALS: PULSE 80
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
--- NOTE | 2019-03-19 22:24 | PN ---
DATE: 03/19/2019 SUBJECTIVE: The patient was seen and examined. I do agree with the note of the medical technologist chief. I was involved in the plan of care. The patient had acute CHF secondary to systolic dysfunction. He is improving. The patient has lower extremity stasis ulcers. He is getting local wound care. Atrial fibrillation with rapid rate. He is currently on Tylenol and digoxin for his atrial fibrillation. He is on anticoagulation for his atrial fibrillation as well. We are going to continue with verapamil. He is on Coumadin and we will continue to follow his INR. The patient is on aspirin for his coronary artery disease. He is on Lipitor for his dyslipidemia. He is going to continue with Lasix. He denies any pain. Nicolas Jean-Baptiste MD
--- NOTE | 2019-03-20 06:28 | CP.PCM.PN ---
Subjective - Date & Time of Evaluation Date of Evaluation: 03/20/19 Time of Evaluation: 06:20 - Subjective Subjective: Awake, no distress,sitting side of bed Reason for consultation and follow up: Cardiac evaluation and follow up rapid ventricular rate atrial fibrillation, history of chronic atrial fibrillation,on Coumadin, CHF, admitted for decompensated acute on chronic systolic dysfunction congestive heart failure and rapid ventricular rate atrial fibrillation Seen and examined by me and Dr. Harper Objective - Vital Signs/Intake and Output Vital Signs (last 24 hours): Temp Pulse Resp BP Pulse Ox 97.3 F L 95 H 20 113/72 98 03/20/19 06:00 03/20/19 06:00 03/20/19 06:00 03/20/19 06:00 03/20/19 06:00 Intake and Output: 03/19/19 03/20/19 18:59 06:59 Intake Total 100 100 Balance 100 100 - Medications Medications: Current Medications Atenolol (Tenormin) 12.5 mg PO BID [facility] Last Admin: 03/19/19 18:31 Dose: 12.5 mg Atorvastatin Calcium (Lipitor) 40 mg PO HS [facility] Last Admin: 03/19/19 21:06 Dose: 40 mg Clobetasol Propionate (Temovate 0.05%) 0 gm TOP BID [facility] Last Admin: 03/19/19 18:41 Dose: 1 applic Collagenase (Santyl) 0 gm TOP DAILY [facility] Furosemide (Lasix) 40 mg IVP 0600,1800 [facility] Last Admin: 03/20/19 05:14 Dose: 40 mg Ceftaroline Fosamil 400 mg/ (Sodium Chloride) 100 mls @ 100 mls/hr IVPB 0600,1800 [facility]; Protocol Stop: 03/26/19 06:01 Last Admin: 03/20/19 05:15 Dose: 100 mls/hr Lactic Acid (Lac-Hydrin 12% Cream (140 G)) 0 ea TOP DAILY [facility] Sacubitril/Valsartan (Entresto 24 Mg-26 Mg Tablet) 1 each PO BID [facility] Last Admin: 03/19/19 18:31 Dose: 1 each Spironolactone (Aldactone) 25 mg PO DAILY [facility] Last Admin: 03/19/19 11:22 Dose: 25 mg Verapamil HCl (Calan Tab) 40 mg PO TID [facility] Last Admin: 03/19/19 18:31 Dose: 40 mg Verapamil HCl (Verapamil Inj) 2.5 mg IVP Q6H PRN PRN Reason: for heart rate >130 Warfarin Sodium (Coumadin) 4 mg PO 1800 [facility] Last Admin: 03/19/19 18:31 Dose: 4 mg - Labs Labs: 03/19/19 07:00 03/19/19 07:00 PT 19.7 SECONDS (9.4-12.5) H 03/19/19 07:00 INR 1.74 03/19/19 07:00 APTT 36.2 Seconds (26.9-38.3) 03/16/19 09:30 - Constitutional Appears: Non-toxic, No Acute Distress - Head Exam Head Exam: NORMAL INSPECTION, NORMOCEPHALIC - Eye Exam Eye Exam: Normal appearance Pupil Exam: NORMAL ACCOMODATION - ENT Exam ENT Exam: Mucous Membranes Moist, Normal Exam - Respiratory Exam Respiratory Exam: Decreased Breath Sounds, Clear to Ausculation Bilateral, RAUDEL L BREATHING PATTERN - Cardiovascular Exam Cardiovascular Exam: Irregular Rhythm, +S1, +S2 Additional comments: Telemetry atrial fibrillation 80-90's - GI/Abdominal Exam GI & Abdominal Exam: Soft, Normal Bowel Sounds - Extremities Exam Extremities Exam: Full ROM Additional comments: 3+edema - Neurological Exam Neurological Exam: Alert, Awake, Oriented x3 - Psychiatric Exam Psychiatric exam: Normal Affect, Normal Mood - Skin Skin Exam: Dry, Normal Color, Warm Assessment and Plan - Assessment and Plan (Free Text) Assessment: An 83 year old male who came in to the ER due to shortness of breath and leg edema. 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 Admitted for rapid atrial fibrillation and admitted for decompensated acute on chronic systolic dysfunction congestive heart failure. Follows up with Dr. Bourgeois. As per Dr. Bourgeois, no significant coronary artery disease. Echo done and showed m oderately impaired systolic dysfunction LVEF 35%, RV moderately dilated, mild aortic regurgitation, moderate to severe mitral regurgitation, mild tricuspid regurgitation RVSP 26 mmHg, Controlled atrial fibrillation. Digoxin given. On Verapamil. Denies shortness of breath. Symptoms improved. Diurese. Plan: Denies shortness of breath Heart rate atrial fibrillation, controlled rate Blood pressure stable Cardiac status stable On Tenormin 12.5 mg BID, Lipitor 40 mg daily, Lasix 40 mg BID, Cozaar 25 mg daily, Entresto 1 tab BID, Aldactone 25 mg daily Verapamil 40 mg TID, Coumadin 4 mg daily Aggressively diurese Continue current treatment Continue current medications Will follow up Plan and treatment discussed with Dr. Harper
[2019-03-20 07:20] LABS: BASO # 0.01 K/mm3 (0.0-2.0); BASO % 0.1 % (0.0-3.0); INR 1.97; PROTHROMBIN TIME 22.3 SECONDS (9.4-12.5)
[2019-03-20 07:42] LABS: ALB/GLOB RATIO 1.1 (1.1-1.8); ALBUMIN 4.3 g/dL (3.0-4.8); ALT/SGPT < 6 U/L (7-56); AST/SGOT 35 U/L (17-59); BLOOD UREA NITROGEN 32 mg/dL (7-21); CALCIUM 9.2 mg/dL (8.4-10.5); GFR NON-AFRICAN AMERICAN 58
[2019-03-20 08:39] LABS: EOS % 0.1 % (1.5-5.0); LYMPH # 0.5 (1.2-3.4); LYMPH % 3.9 % (22.0-35.0); MEAN CELL VOLUME 87.6 fl (80.0-105.0); MEAN CORPUSCULAR HEMOGLOBIN 28.5 pg (25.0-35.0); MEAN CORPUSCULAR HGB CONC 32.5 g/dl (31.0-37.0); MEAN PLATELET VOLUME 10.2 fl (7.0-11.0); MONO % 7.6 % (1.0-6.0); PLATELET COUNT 225 10^3/uL (120.0-450.0); RBC 5.09 10^6/uL (3.5-6.1); WHITE BLOOD COUNT 13.7 10^3/uL (4.5-11.0)
[2019-03-20 08:40] LABS: HEMOGLOBIN 14.5 g/dL (14.0-18.0)
[2019-03-20 10:12] LABS: LYMPHOCYTE 11 % (22.0-35.0); MONOCYTE 2 % (1.0-6.0); NEUTROPHIL 87 % (50.0-70.0); PLATELET ESTIMATE NORMAL (NORMAL)
[2019-03-20] MEDS: SACUBITRIL 24mg/VALSARTAN 26mg tab PO SCH ×2 (10:27→18:07)
[2019-03-20] MEDS: Ammonium Lactate 12% Cream (140 g) TOP SCH (10:29)
[2019-03-20] MEDS: Clobetasol 0.05% Oint(15 gm) TOP SCH ×2 (10:33→18:09)
[2019-03-20] MEDS: Collagenase 250 Units/gm Ointment(30 gm) TOP SCH (10:34)
[2019-03-20] MEDS ORDERED: Alum-Mag Hydrox-Simethicone Susp (30 mL) PO ONE (11:07)
--- NOTE | 2019-03-20 11:16 | CP.PCM.PN ---
<Bertin Díaz - Last Filed: 03/20/19 11:09> Subjective - Date & Time of Evaluation Date of Evaluation: 03/20/19 Time of Evaluation: 08:00 - Subjective Subjective: Progress Note for Dr. Jean-Baptiste Patient was seen and examined at bedside. Patient has complaint of gas, blaoting and discomfort. He did have a small bm yesterday with some relief of discomfort. Patient otherwise tolerated PT, is tolerating PO intake and denied fever, c hills, shortness of breath, chest pain, abdominal pains, nausea vomiting or dysuria. Objective - Vital Signs/Intake and Output Vital Signs (last 24 hours): Temp Pulse Resp BP Pulse Ox 97.3 F L 102 H 20 93/53 L 98 03/20/19 06:00 03/20/19 10:32 03/20/19 06:00 03/20/19 10:32 03/20/19 06:00 Intake and Output: 03/20/19 03/20/19 06:59 18:59 Intake Total 340 Output Total 1300 Balance -960 - Medications Medications: Current Medications Atenolol (Tenormin) 12.5 mg PO BID [facility] Last Admin: 03/20/19 10:32 Dose: 12.5 mg Atorvastatin Calcium (Lipitor) 40 mg PO HS [facility] Last Admin: 03/19/19 21:06 Dose: 40 mg Clobetasol Propionate (Temovate 0.05%) 0 gm TOP BID [facility] Last Admin: 03/20/19 10:33 Dose: 1 applic Collagenase (Santyl) 0 gm TOP DAILY [facility] Last Admin: 03/20/19 10:34 Dose: 1 applic Furosemide (Lasix) 40 mg IVP 0600,1800 [facility] Last Admin: 03/20/19 05:14 Dose: 40 mg Ceftaroline Fosamil 400 mg/ (Sodium Chloride) 100 mls @ 100 mls/hr IVPB 0600,1800 [facility]; Protocol Stop: 03/26/19 06:01 Last Admin: 03/20/19 05:15 Dose: 100 mls/hr Lactic Acid (Lac-Hydrin 12% Cream (140 G)) 0 ea TOP DAILY [facility] Last Admin: 03/20/19 10:29 Dose: 1 applic Sacubitril/Valsartan (Entresto 24 Mg-26 Mg Tablet) 1 each PO BID [facility] Last Admin: 03/20/19 10:27 Dose: Not Given Simethicone (Mylicon Liq) 40 mg PO QID [facility] Spironolactone (Aldactone) 25 mg PO DAILY [facility] Last Admin: 03/20/19 10:28 Dose: 25 mg Verapamil HCl (Calan Tab) 40 mg PO TID [facility] Last Admin: 03/20/19 10:27 Dose: Not Given Verapamil HCl (Verapamil Inj) 2.5 mg IVP Q6H PRN PRN Reason: for heart rate >130 Warfarin Sodium (Coumadin) 4 mg PO 1800 [facility] Last Admin: 03/19/19 18:31 Dose: 4 mg - Labs Labs: 03/20/19 06:50 03/20/19 06:50 PT 22.3 SECONDS (9.4-12.5) H 03/20/19 06:50 INR 1.97 03/20/19 06:50 APTT 36.2 Seconds (26.9-38.3) 03/16/19 09:30 - Constitutional Appears: No Acute Distress - Head Exam Head Exam: ATRAUMATIC, NORMAL INSPECTION, NORMOCEPHALIC - Eye Exam Eye Exam: EOMI, Normal appearance, PERRL Pupil Exam: NORMAL ACCOMODATION, PERRL - ENT Exam ENT Exam: Mucous Membranes Moist, Normal Exam - Neck Exam Neck Exam: Full ROM, Normal Inspection. absent: Lymphadenopathy - Respiratory Exam Respiratory Exam: Decreased Breath Sounds, NORMAL BREATHING PATTERN - Cardiovascular Exam Cardiovascular Exam: Irregular Rhythm, +S1, +S2 - GI/Abdominal Exam GI & Abdominal Exam: Soft, Normal Bowel Sounds. absent: Tenderness - Neurological Exam Neurological Exam: Alert, Awake, CN II-XII Intact, Oriented x3 - Psychiatric Exam Psychiatric exam: Normal Affect, Normal Mood - Skin Skin Exam: Dry, Intact, Normal Color, Warm Assessment and Plan - Assessment and Plan (Free Text) Assessment: ` acute chf exacerbation systolic dysfunction ` afib with rvr ` Chronic LLE Stasis Ulcer 3cm x 2cm x 0.3cm ` CAD ` coagulopathy ` HTN ` HLD ` Hypokalemia Plan: Patient is having GI upset, will address with simethicone and maalox and miralax BID. Patient's shortness of breath has improved, continue diuresis with lasix 40mg BID, and as per Cardiology Dr. Leroy, continue Entresto, aldactone, atenolol, and Digoxin. Patient is on anticoagulation for Afib, now with better rate control, on verapamil 40mg TID [facility] and 2.5mg Q6h prn for HR>130, can DC telemetry at this time. INR 1.96 will continue with anticoagulation with coumadin 4mg HS. Patient with chronic LLE stasis dermatitis. B/L lower extremity x-rays negative for acute pathology, fu Wound Culture, ID and podiatry on board, dressed wound with lac-hydrin and santyl. Continue asa and lipitor for CAD and HLD. As per CM, Referral sent to [facility], will follow up. Seen reviewed and discussed with Dr. Jean-Baptiste <Nicolas Jean-Baptiste S - Last Filed: 03/20/19 15:19> Objective - Vital Signs/Intake and Output Vital Signs (last 24 hours): Temp Pulse Resp BP Pulse Ox 98.2 F 93 H 18 107/69 98 03/20/19 12:00 03/20/19 14:34 03/20/19 12:00 03/20/19 14:34 03/20/19 06:00 Intake and Output: 03/20/19 03/20/19 06:59 18:59 Intake Total 340 Output Total 1300 Balance -960 - Medications Medications: Current Medications Atenolol (Tenormin) 12.5 mg PO BID [facility] Last Admin: 03/20/19 10:32 Dose: 12.5 mg Atorvastatin Calcium (Lipitor) 40 mg PO HS [facility] Last Admin: 03/19/19 21:06 Dose: 40 mg Clobetasol Propionate (Temovate 0.05%) 0 gm TOP BID [facility] Last Admin: 03/20/19 10:33 Dose: 1 applic Collagenase (Santyl) 0 gm TOP DAILY [facility] Last Admin: 03/20/19 10:34 Dose: 1 applic Furosemide (Lasix) 40 mg IVP 0600,1800 [facility] Last Admin: 03/20/19 05:14 Dose: 40 mg Ceftaroline Fosamil 400 mg/ (Sodium Chloride) 100 mls @ 100 mls/hr IVPB 0600,1800 [facility]; Protocol Stop: 03/26/19 06:01 Last Admin: 03/20/19 05:15 Dose: 100 mls/hr Lactic Acid (Lac-Hydrin 12% Cream (140 G)) 0 ea TOP DAILY [facility] Last Admin: 03/20/19 10:29 Dose: 1 applic Sacubitril/Valsartan (Entresto 24 Mg-26 Mg Tablet) 1 each PO BID [facility] Last Admin: 03/20/19 10:27 Dose: Not Given Simethicone (Mylicon Liq) 40 mg PO QID [facility] Last Admin: 03/20/19 14:36 Dose: 40 mg Spironolactone (Aldactone) 25 mg PO DAILY [facility] Last Admin: 03/20/19 10:28 Dose: 25 mg Verapamil HCl (Calan Tab) 40 mg PO TID [facility] Last Admin: 03/20/19 14:34 Dose: 40 mg Verapamil HCl (Verapamil Inj) 2.5 mg IVP Q6H PRN PRN Reason: for heart rate >130 Warfarin Sodium (Coumadin) 4 mg PO 1800 [facility] Last Admin: 03/19/19 18:31 Dose: 4 mg - Labs Labs: 03/20/19 06:50 03/20/19 06:50 PT 22.3 SECONDS (9.4-12.5) H 03/20/19 06:50 INR 1.97 03/20/19 06:50 APTT 36.2 Seconds (26.9-38.3) 03/16/19 09:30 Assessment and Plan - Assessment and Plan (Free Text) Assessment: Pt seen and examined by me. I have reviewed the note of the director biomedical engineering and I agree with it. I have discussed the assessment and plan with the resident. I have reviewed the medications and the last labs.
--- NOTE | 2019-03-20 11:49 | CP.PCM.PN ---
Subjective - Date & Time of Evaluation Date of Evaluation: 03/20/19 Time of Evaluation: 10:10 - Subjective Subjective: Comfortable in bed, no fevers. Objective - Vital Signs/Intake and Output Vital Signs (last 24 hours): Temp Pulse Resp BP Pulse Ox 98.6 F 104 H 18 128/64 98 03/19/19 18:00 03/19/19 18:31 03/19/19 18:00 03/19/19 18:32 03/19/19 06:00 Intake and Output: 03/19/19 03/20/19 18:59 06:59 Intake Total 100 Balance 100 - Medications Medications: Current Medications Atenolol (Tenormin) 12.5 mg PO BID [facility] Last Admin: 03/19/19 18:31 Dose: 12.5 mg Atorvastatin Calcium (Lipitor) 40 mg PO HS [facility] Last Admin: 03/19/19 21:06 Dose: 40 mg Clobetasol Propionate (Temovate 0.05%) 0 gm TOP BID [facility] Last Admin: 03/19/19 18:41 Dose: 1 applic Collagenase (Santyl) 0 gm TOP DAILY [facility] Furosemide (Lasix) 40 mg IVP 0600,1800 [facility] Last Admin: 03/19/19 18:32 Dose: 40 mg Ceftaroline Fosamil 400 mg/ (Sodium Chloride) 100 mls @ 100 mls/hr IVPB 0600,1800 [facility]; Protocol Stop: 03/26/19 06:01 Last Admin: 03/19/19 18:33 Dose: 100 mls/hr Lactic Acid (Lac-Hydrin 12% Cream (140 G)) 0 ea TOP DAILY [facility] Sacubitril/Valsartan (Entresto 24 Mg-26 Mg Tablet) 1 each PO BID [facility] Last Admin: 03/19/19 18:31 Dose: 1 each Spironolactone (Aldactone) 25 mg PO DAILY [facility] Last Admin: 03/19/19 11:22 Dose: 25 mg Verapamil HCl (Calan Tab) 40 mg PO TID [facility] Last Admin: 03/19/19 18:31 Dose: 40 mg Verapamil HCl (Verapamil Inj) 2.5 mg IVP Q6H PRN PRN Reason: for heart rate >130 Warfarin Sodium (Coumadin) 4 mg PO 1800 [facility] Last Admin: 03/19/19 18:31 Dose: 4 mg - Labs Labs: 03/19/19 07:00 03/19/19 07:00 PT 19.7 SECONDS (9.4-12.5) H 03/19/19 07:00 INR 1.74 03/19/19 07:00 APTT 36.2 Seconds (26.9-38.3) 03/16/19 09:30 - Constitutional Appears: Chronically Ill - Head Exam Head Exam: NORMAL INSPECTION - Respiratory Exam Respiratory Exam: Decreased Breath Sounds - Cardiovascular Exam Cardiovascular Exam: +S1, +S2 - GI/Abdominal Exam GI & Abdominal Exam: Soft. absent: Tenderness - Extremities Exam Additional comments: left leg with dressings in place Assessment and Plan - Assessment and Plan (Free Text) Plan: Assessment Bilateral lower extremity skin and skin structure infection, growing gram positive cocci and gram negative bacilli CVA bladder cancer atrial fibrillation on anticoagulation HTN GERD chronic CHF CAD dyslipidemia PVD morbid obesity with BMI 40 Plan continue Teflaro day 3 and will follow up final wound cx results follow up further plans of Podiatry will continue to monitor clinically
[2019-03-20] MEDS: Simethicone 40 mg/0.6 ml Liquid (30 ml) PO SCH ×3 (14:36→22:15)
--- NOTE | 2019-03-20 16:37 | CP.PCM.PN ---
<César Haleyalycia - Last Filed: 03/20/19 16:34> Subjective - Date & Time of Evaluation Date of Evaluation: 03/20/19 Time of Evaluation: 16:34 - Subjective Subjective: Podiatry consult note for Drs. Chaudhary/Jc 83 year old male was seen and evaluated due to complaints of bilateral lower extremity pain with ulcerations. He notes chronic left lower extremity wound, unchanged from previous. No acute overnight events. Patient denies any chills, headache, dizziness, slurred speech, weakness/numbness, chest pain, diaphoresis, abdominal pain, nausea, vomiting, diarrhea, constipation, back pain, neck pain, or any other complaints. Objective - Vital Signs/Intake and Output Vital Signs (last 24 hours): Temp Pulse Resp BP Pulse Ox 98.2 F 93 H 18 107/69 98 03/20/19 12:00 03/20/19 14:34 03/20/19 12:00 03/20/19 14:34 03/20/19 06:00 Intake and Output: 03/20/19 03/20/19 06:59 18:59 Intake Total 340 Output Total 1300 Balance -960 - Medications Medications: Current Medications Atenolol (Tenormin) 12.5 mg PO BID [facility] Last Admin: 03/20/19 10:32 Dose: 12.5 mg Atorvastatin Calcium (Lipitor) 40 mg PO HS [facility] Last Admin: 03/19/19 21:06 Dose: 40 mg Clobetasol Propionate (Temovate 0.05%) 0 gm TOP BID [facility] Last Admin: 03/20/19 10:33 Dose: 1 applic Collagenase (Santyl) 0 gm TOP DAILY [facility] Last Admin: 03/20/19 10:34 Dose: 1 applic Furosemide (Lasix) 40 mg IVP 0600,1800 [facility] Last Admin: 03/20/19 05:14 Dose: 40 mg Ceftaroline Fosamil 400 mg/ (Sodium Chloride) 100 mls @ 100 mls/hr IVPB 0600,1800 [facility]; Protocol Stop: 03/26/19 06:01 Last Admin: 03/20/19 05:15 Dose: 100 mls/hr Lactic Acid (Lac-Hydrin 12% Cream (140 G)) 0 ea TOP DAILY [facility] Last Admin: 03/20/19 10:29 Dose: 1 applic Sacubitril/Valsartan (Entresto 24 Mg-26 Mg Tablet) 1 each PO BID [facility] Last Admin: 03/20/19 10:27 Dose: Not Given Simethicone (Mylicon Liq) 40 mg PO QID [facility] Last Admin: 03/20/19 14:36 Dose: 40 mg Spironolactone (Aldactone) 25 mg PO DAILY [facility] Last Admin: 03/20/19 10:28 Dose: 25 mg Verapamil HCl (Calan Tab) 40 mg PO TID [facility] Last Admin: 03/20/19 14:34 Dose: 40 mg Verapamil HCl (Verapamil Inj) 2.5 mg IVP Q6H PRN PRN Reason: for heart rate >130 Warfarin Sodium (Coumadin) 4 mg PO 1800 [facility] Last Admin: 03/19/19 18:31 Dose: 4 mg - Labs Labs: 03/20/19 06:50 03/20/19 06:50 PT 22.3 SECONDS (9.4-12.5) H 03/20/19 06:50 INR 1.97 03/20/19 06:50 APTT 36.2 Seconds (26.9-38.3) 03/16/19 09:30 - Constitutional Appears: Well, Non-toxic, No Acute Distress - Head Exam Head Exam: ATRAUMATIC, NORMOCEPHALIC - Extremities Exam Additional comments: Bilateral Lower Extremity Exam VASC: DP and PT 2/4 bilaterally, CFT less than 3 seconds X 10, TG within normal limits, mild lower extremity edema noted NEURO: epicritic and protective sensations intact DERM: both legs with chronic skin changes due to peripheral vascular disease LEFT: ulceration measuring 3 cm X 2 cm X 0.3 cm noted to the lateral aspect of the left leg, moderate purulent drainage, 50% fibrotic and 50% granular base, surrounding erythema, no maceration, no probe to bone, no tracking, no tunneling, no malodor RIGHT: areas of healing and epithelialized wounds noted to the right leg, no clinical signs of infection - Neurological Exam Neurological Exam: Alert, Awake, Oriented x3 - Psychiatric Exam Psychiatric exam: Normal Affect, Normal Mood Assessment and Plan - Assessment and Plan (Free Text) Assessment: 83 y/o male patient seen and evaluated with left leg ulceration and chronic skin changes secondary to PVD Plan: Patient seen and evaluated with Dr. Arloro Plan discussed with attending Chart, labs and vitals were reviewed- afebrile, absent leukocytosis Ordered B/L lower extremity x-rays Obtained Wound Culture- Enterobacter Cloacae Ssp Cloac, Coag Negative Staph Placed Infectious Disease consult, recommendations appreciated KINGS/PVR to assess blood flow to b/l LE: normal at rest Wound cleaned and dressed with Santyl and Mepilex, LacHydrin applied to B/L LE Podiatry will continue to follow patient while in house <Evelio Chaudhary - Last Filed: 03/20/19 17:22> Objective - Vital Signs/Intake and Output Vital Signs (last 24 hours): Temp Pulse Resp BP Pulse Ox 98.2 F 93 H 18 107/69 98 03/20/19 12:00 03/20/19 14:34 03/20/19 12:00 03/20/19 14:34 03/20/19 06:00 Intake and Output: 03/20/19 03/20/19 06:59 18:59 Intake Total 340 Output Total 1300 Balance -960 - Medications Medications: Current Medications Atenolol (Tenormin) 12.5 mg PO BID [facility] Last Admin: 03/20/19 10:32 Dose: 12.5 mg Atorvastatin Calcium (Lipitor) 40 mg PO HS [facility] Last Admin: 03/19/19 21:06 Dose: 40 mg Clobetasol Propionate (Temovate 0.05%) 0 gm TOP BID [facility] Last Admin: 03/20/19 10:33 Dose: 1 applic Collagenase (Santyl) 0 gm TOP DAILY [facility] Last Admin: 03/20/19 10:34 Dose: 1 applic Furosemide (Lasix) 40 mg IVP 0600,1800 [facility] Last Admin: 03/20/19 05:14 Dose: 40 mg Ceftaroline Fosamil 400 mg/ (Sodium Chloride) 100 mls @ 100 mls/hr IVPB 0600,1800 [facility]; Protocol Stop: 03/26/19 06:01 Last Admin: 03/20/19 05:15 Dose: 100 mls/hr Lactic Acid (Lac-Hydrin 12% Cream (140 G)) 0 ea TOP DAILY [facility] Last Admin: 03/20/19 10:29 Dose: 1 applic Sacubitril/Valsartan (Entresto 24 Mg-26 Mg Tablet) 1 each PO BID [facility] Last Admin: 03/20/19 10:27 Dose: Not Given Simethicone (Mylicon Liq) 40 mg PO QID [facility] Last Admin: 03/20/19 14:36 Dose: 40 mg Spironolactone (Aldactone) 25 mg PO DAILY [facility] Last Admin: 03/20/19 10:28 Dose: 25 mg Verapamil HCl (Calan Tab) 40 mg PO TID [facility] Last Admin: 03/20/19 14:34 Dose: 40 mg Verapamil HCl (Verapamil Inj) 2.5 mg IVP Q6H PRN PRN Reason: for heart rate >130 Warfarin Sodium (Coumadin) 4 mg PO 1800 [facility] Last Admin: 03/19/19 18:31 Dose: 4 mg - Labs Labs: 03/20/19 06:50 03/20/19 06:50 PT 22.3 SECONDS (9.4-12.5) H 03/20/19 06:50 INR 1.97 03/20/19 06:50 APTT 36.2 Seconds (26.9-38.3) 03/16/19 09:30 Attending/Attestation - Attestation I have personally seen and examined this patient.: Yes I have fully participated in the care of the patient.: Yes I have reviewed all pertinent clinical information, including history, physical exam and plan: Yes
--- NOTE | 2019-03-20 20:30 | PN ---
DATE: 03/20/2019 The patient was seen and examined. I do agree with the note of the medical apparatus model maker. I was involved in the plan of care. The patient has acute CHF secondary to systolic dysfunction. He is feeling better. The patient is on verapamil for his atrial fibrillation, he is going to continue. He has an INR that is 1.96. He is on Coumadin for his anticoagulation for prevention of stroke. The patient is receiving Lipitor for his dyslipidemia. He is on aspirin for coronary artery disease. He has a left leg ulcer that is 3 x 2 cm and he is receiving IV antibiotics for this leg wound. He is being followed by Infectious Disease, Dr. Ramírez. This is coverage for Dr. Taylor. The patient is also on Aldactone. He is on a heart-healthy diet. Nicolas Jean-Baptiste MD
--- NOTE | 2019-03-21 06:47 | CP.PCM.PN ---
Subjective - Date & Time of Evaluation Date of Evaluation: 03/21/19 Time of Evaluation: 06:22 - Subjective Subjective: Awake, no distress,feels okay Reason for consultation and follow up: Cardiac evaluation and follow up rapid ventricular rate atrial fibrillation, history of chronic atrial fibrillation,on Coumadin, CHF, admitted for decompensated acute on chronic systolic dysfunction congestive heart failure and rapid ventricular rate atrial fibrillation Seen and examined by me and Dr. Harper Objective - Vital Signs/Intake and Output Vital Signs (last 24 hours): Temp Pulse Resp BP Pulse Ox 97.5 F L 87 18 100/65 98 03/21/19 06:00 03/21/19 06:00 03/21/19 06:00 03/21/19 06:00 03/21/19 06:00 Intake and Output: 03/20/19 03/21/19 18:59 06:59 Intake Total 100 868 Output Total 1160 Balance 100 -292 - Medications Medications: Current Medications Aspirin (Ecotrin) 81 mg PO DAILY [facility] Atenolol (Tenormin) 12.5 mg PO BID [facility] Last Admin: 03/20/19 18:08 Dose: 12.5 mg Atorvastatin Calcium (Lipitor) 40 mg PO HS [facility] Last Admin: 03/20/19 22:15 Dose: 40 mg Clobetasol Propionate (Temovate 0.05%) 0 gm TOP BID [facility] Last Admin: 03/20/19 18:09 Dose: 1 applic Collagenase (Santyl) 0 gm TOP DAILY [facility] Last Admin: 03/20/19 10:34 Dose: 1 applic Furosemide (Lasix) 40 mg IVP 0600,1800 [facility] Last Admin: 03/21/19 05:23 Dose: 40 mg Ceftaroline Fosamil 400 mg/ (Sodium Chloride) 100 mls @ 100 mls/hr IVPB 0600,1800 [facility]; Protocol Stop: 03/26/19 06:01 Last Admin: 03/21/19 05:22 Dose: 100 mls/hr Lactic Acid (Lac-Hydrin 12% Cream (140 G)) 0 ea TOP DAILY [facility] Last Admin: 03/20/19 10:29 Dose: 1 applic Sacubitril/Valsartan (Entresto 24 Mg-26 Mg Tablet) 1 each PO BID [facility] Last Admin: 03/20/19 18:07 Dose: Not Given Simethicone (Mylicon Liq) 40 mg PO QID [facility] Last Admin: 03/20/19 22:15 Dose: 40 mg Spironolactone (Aldactone) 25 mg PO DAILY [facility] Last Admin: 03/20/19 10:28 Dose: 25 mg Verapamil HCl (Calan Tab) 40 mg PO TID [facility] Last Admin: 03/20/19 18:10 Dose: 40 mg Verapamil HCl (Verapamil Inj) 2.5 mg IVP Q6H PRN PRN Reason: for heart rate >130 Warfarin Sodium (Coumadin) 4 mg PO 1800 [facility] Last Admin: 03/20/19 18:04 Dose: 4 mg - Labs Labs: 03/20/19 06:50 03/20/19 06:50 PT 22.3 SECONDS (9.4-12.5) H 03/20/19 06:50 INR 1.97 03/20/19 06:50 APTT 36.2 Seconds (26.9-38.3) 03/16/19 09:30 - Constitutional Appears: Non-toxic, No Acute Distress - Head Exam Head Exam: NORMAL INSPECTION, NORMOCEPHALIC - Eye Exam Eye Exam: Normal appearance Pupil Exam: NORMAL ACCOMODATION - ENT Exam ENT Exam: Mucous Membranes Moist - Neck Exam Neck Exam: Full ROM, Normal Inspection - Respiratory Exam Respiratory Exam: Decreased Breath Sounds, Clear to Ausculation Bilateral, NORM AL BREATHING PATTERN - Cardiovascular Exam Cardiovascular Exam: +S1, +S2 - GI/Abdominal Exam GI & Abdominal Exam: Soft, Normal Bowel Sounds - Extremities Exam Extremities Exam: Full ROM Additional comments: 2-3+edema - Back Exam Additional comments: leg dressing intact - Neurological Exam Neurological Exam: Alert, Awake, Oriented x3 - Psychiatric Exam Psychiatric exam: Normal Affect, Normal Mood - Skin Skin Exam: Dry, Normal Color, Warm Assessment and Plan - Assessment and Plan (Free Text) Assessment: An 83 year old male who came in to the ER due to shortness of breath and leg edema. 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 Admitted for rapid atrial fibrillation and admitted for decompensated acute on chronic systolic dysfunction congestive heart failure. Follows up with Dr. Bourgeois. As per Dr. Bourgeois, no significant coronary artery disease. Echo done and showed moderate ly impaired systolic dysfunction LVEF 35%, RV moderately dilated, mild aortic regurgitation, moderate to severe mitral regurgitation, mild tricuspid regurgitation RVSP 26 mmHg. Controlled atrial fibrillation. Digoxin given. On Verapamil. Denies shortness of breath. Continue to diurese. Followed up by Podiatry.Leg wound culture positive for Enterobacter clocae. ID on consult. On IV antibiotics. Plan: Denies shortness of breath,feels okay Heart rate controlled rate Blood pressure stable Cardiac status stable On Tenormin 12.5 mg BID, Lipitor 40 mg daily, Lasix 40 mg BID, Cozaar 25 mg daily, Entresto 1 tab BID, Aldactone 25 mg daily Verapamil 40 mg TID, Coumadin 4 mg daily INR yesterday 1.97 Continue to diurese Continue current treatment Continue current medications Followed up by Podiatry Continue IV antibiotics per ID (positive wound leg culture) Will follow up Plan and treatment discussed with Dr. Harper
[2019-03-21] MEDS: SACUBITRIL 24mg/VALSARTAN 26mg tab PO SCH ×2 (09:33→17:53)
[2019-03-21] MEDS: Collagenase 250 Units/gm Ointment(30 gm) TOP SCH (09:37)
[2019-03-21] MEDS: Clobetasol 0.05% Oint(15 gm) TOP SCH ×3 (09:37→17:52)
[2019-03-21] MEDS: Ammonium Lactate 12% Cream (140 g) TOP SCH (09:37)
[2019-03-21] MEDS: Simethicone 40 mg/0.6 ml Liquid (30 ml) PO SCH ×4 (11:21→21:55)
--- NOTE | 2019-03-21 11:25 | CP.PCM.PN ---
Subjective - Date & Time of Evaluation Date of Evaluation: 03/21/19 Time of Evaluation: 08:35 - Subjective Subjective: Resting comfortably in bed, no fevers, not in distress. Objective - Vital Signs/Intake and Output Vital Signs (last 24 hours): Temp Pulse Resp BP Pulse Ox 97.3 F L 102 H 20 93/53 L 98 03/20/19 06:00 03/20/19 10:32 03/20/19 06:00 03/20/19 10:32 03/20/19 06:00 Intake and Output: 03/20/19 03/20/19 06:59 18:59 Intake Total 340 Output Total 1300 Balance -960 - Medications Medications: Current Medications Atenolol (Tenormin) 12.5 mg PO BID [facility] Last Admin: 03/20/19 10:32 Dose: 12.5 mg Atorvastatin Calcium (Lipitor) 40 mg PO HS [facility] Last Admin: 03/19/19 21:06 Dose: 40 mg Clobetasol Propionate (Temovate 0.05%) 0 gm TOP BID [facility] Last Admin: 03/20/19 10:33 Dose: 1 applic Collagenase (Santyl) 0 gm TOP DAILY [facility] Last Admin: 03/20/19 10:34 Dose: 1 applic Furosemide (Lasix) 40 mg IVP 0600,1800 [facility] Last Admin: 03/20/19 05:14 Dose: 40 mg Ceftaroline Fosamil 400 mg/ (Sodium Chloride) 100 mls @ 100 mls/hr IVPB 0600,1800 [facility]; Protocol Stop: 03/26/19 06:01 Last Admin: 03/20/19 05:15 Dose: 100 mls/hr Lactic Acid (Lac-Hydrin 12% Cream (140 G)) 0 ea TOP DAILY [facility] Last Admin: 03/20/19 10:29 Dose: 1 applic Sacubitril/Valsartan (Entresto 24 Mg-26 Mg Tablet) 1 each PO BID [facility] Last Admin: 03/20/19 10:27 Dose: Not Given Simethicone (Mylicon Liq) 40 mg PO QID [facility] Spironolactone (Aldactone) 25 mg PO DAILY [facility] Last Admin: 03/20/19 10:28 Dose: 25 mg Verapamil HCl (Calan Tab) 40 mg PO TID [facility] Last Admin: 03/20/19 10:27 Dose: Not Given Verapamil HCl (Verapamil Inj) 2.5 mg IVP Q6H PRN PRN Reason: for heart rate >130 Warfarin Sodium (Coumadin) 4 mg PO 1800 [facility] Last Admin: 03/19/19 18:31 Dose: 4 mg - Labs Labs: 03/20/19 06:50 03/20/19 06:50 PT 22.3 SECONDS (9.4-12.5) H 03/20/19 06:50 INR 1.97 03/20/19 06:50 APTT 36.2 Seconds (26.9-38.3) 03/16/19 09:30 - Constitutional Appears: No Acute Distress, Chronically Ill - Head Exam Head Exam: NORMAL INSPECTION - Respiratory Exam Respiratory Exam: Decreased Breath Sounds - Cardiovascular Exam Cardiovascular Exam: +S1, +S2 - GI/Abdominal Exam GI & Abdominal Exam: Soft. absent: Tenderness Assessment and Plan - Assessment and Plan (Free Text) Plan: Assessment Bilateral lower extremity skin and skin structure infection, methicillin- sensitive coagulase negative staph and Enterobacter CVA bladder cancer atrial fibrillation on anticoagulation HTN GERD chronic CHF CAD dyslipidemia PVD morbid obesity with BMI 40 Plan on Teflaro day 4 - can switch to PO Vantin when ready to be discharged follow up further plans of Podiatry will continue to monitor clinically
--- NOTE | 2019-03-21 11:29 | PN ---
DATE: 03/21/2019 SUBJECTIVE: The patient has no complaints of any chest pain. No shortness of breath. No headaches. PHYSICAL EXAMINATION: VITAL SIGNS: Temperature is 97.5, pulse of 87, blood pressure 100/65 and respirations are 18. GENERAL: The patient is lying in bed, flat, comfortable. HEENT: No oral lesion. Anicteric sclerae. Moist mucosa. NECK: No JVD, adenopathy, or thyromegaly. CARDIOVASCULAR: S1 and S2, regular. No murmurs, rubs, or gallops. LUNGS: Clear to auscultation bilaterally. No wheeze, rales, or rhonchi. ABDOMEN: Bowel sounds are positive, soft, nontender and nondistended. EXTREMITIES: No cyanosis, clubbing or edema. LABORATORY DATA: White count of 13.7 and hemoglobin 14.5. Creatinine is 1.2. ASSESSMENT: 1. Left leg wound. 2. Atrial fibrillation. 3. Hypertension. 4. Congestive heart failure secondary to systolic dysfunction, stable chronic. 5. Coronary artery disease. 6. Dyslipidemia. 7. Peripheral arterial disease. PLAN: The patient is currently receiving Aldactone. The patient is on Coumadin for anticoagulation. The patient's INR is 1.97. He is on Lipitor for dyslipidemia. He is receiving local wound care for his leg. He is on a heart healthy diet. He has a Enterococcus and coag negative Staph. He is being followed by Infectious Disease. Nicolas Jean-Baptiste MD
--- NOTE | 2019-03-21 15:50 | CP.PCM.PN ---
<Neri Xiong - Last Filed: 03/21/19 15:47> Subjective - Date & Time of Evaluation Date of Evaluation: 03/21/19 Time of Evaluation: 15:47 - Subjective Subjective: Podiatry Progress Note Dr. Chaudhary/Jc 83M seen at bedside for left lateral leg wound. Patient is AAO x 3 and NAD, resting comfortably in bed. Denies any acute overnight events or new pedal complaints. States that pain is well controlled. Denies any recent N/V/F /C/CP/SOB/D Objective - Vital Signs/Intake and Output Vital Signs (last 24 hours): Temp Pulse Resp BP Pulse Ox 97.4 F L 93 H 20 98/61 L 98 03/21/19 12:00 03/21/19 13:43 03/21/19 12:00 03/21/19 13:43 03/21/19 06:00 Intake and Output: 03/21/19 03/21/19 06:59 18:59 Intake Total 868 Output Total 1160 Balance -292 - Medications Medications: Current Medications Aspirin (Ecotrin) 81 mg PO DAILY [facility] Last Admin: 03/21/19 09:36 Dose: 81 mg Atenolol (Tenormin) 12.5 mg PO BID [facility] Last Admin: 03/21/19 09:34 Dose: Not Given Atorvastatin Calcium (Lipitor) 40 mg PO HS [facility] Last Admin: 03/20/19 22:15 Dose: 40 mg Clobetasol Propionate (Temovate 0.05%) 0 gm TOP BID [facility] Last Admin: 03/21/19 11:27 Dose: Not Given Collagenase (Santyl) 0 gm TOP DAILY [facility] Last Admin: 03/21/19 09:37 Dose: 1 applic Furosemide (Lasix) 40 mg PO 0800,1400 [facility] Last Admin: 03/21/19 13:43 Dose: Not Given Ceftaroline Fosamil 400 mg/ (Sodium Chloride) 100 mls @ 100 mls/hr IVPB 0600,1800 [facility]; Protocol Stop: 03/26/19 06:01 Last Admin: 03/21/19 05:22 Dose: 100 mls/hr Lactic Acid (Lac-Hydrin 12% Cream (140 G)) 0 ea TOP DAILY [facility] Last Admin: 03/21/19 09:37 Dose: 1 applic Sacubitril/Valsartan (Entresto 24 Mg-26 Mg Tablet) 1 each PO BID [facility] Last Admin: 03/21/19 09:33 Dose: Not Given Simethicone (Mylicon Liq) 40 mg PO QID [facility] Last Admin: 03/21/19 13:45 Dose: 40 mg Spironolactone (Aldactone) 25 mg PO DAILY [facility] Last Admin: 03/21/19 09:33 Dose: Not Given Verapamil HCl (Calan Tab) 40 mg PO TID [facility] Last Admin: 03/21/19 13:43 Dose: Not Given Verapamil HCl (Verapamil Inj) 2.5 mg IVP Q6H PRN PRN Reason: for heart rate >130 Warfarin Sodium (Coumadin) 4 mg PO 1800 [facility] Last Admin: 03/20/19 18:04 Dose: 4 mg - Labs Labs: 03/20/19 06:50 03/20/19 06:50 PT 22.3 SECONDS (9.4-12.5) H 03/20/19 06:50 INR 1.97 03/20/19 06:50 APTT 36.2 Seconds (26.9-38.3) 03/16/19 09:30 - Constitutional Appears: Well, Non-toxic, No Acute Distress - Extremities Exam Additional comments: Bilateral Lower Extremity Exam VASC: DP/PT pulses 2/4 bilaterally, CFT less than 3 seconds X 10, TG within normal limits from proximal to distal, mild lower extremity edema noted NEURO: epicritic and protective sensations grossly intact DERM: both legs with chronic skin changes due to peripheral vascular disease LEFT: ulceration measuring 3 cm X 2 cm X 0.3 cm noted to the lateral aspect of the left leg, minimal purulent drainage, 50% fibrotic and 50% granular base, surrounding erythema, no maceration, no probe to bone, no tracking, no tunneling, no malodor RIGHT: areas of healing and epithelialized wounds noted to the right leg, no clinical signs of infection MSK: Minimal pain on palpation of lateral left leg wound. No gross deformities noted - Neurological Exam Neurological Exam: Alert, Awake, Oriented x3 - Psychiatric Exam Psychiatric exam: Normal Affect, Normal Mood Assessment and Plan - Assessment and Plan (Free Text) Assessment: 83M seen at bedside for left lateral leg wound Plan: Patient seen and evaluated Plan discussed with Dr. Chaudhary WBC 13.7 Continue abx per ID Left leg wound cx: Coag neg staph, E. cloacae Xray: no acute findings Wound dressed with Santyl, Mepilex No plan for surgical intervention at this time Podiatry will continue to follow while patient in house <Evelio Chaudhary - Last Filed: 03/24/19 08:29> Objective - Vital Signs/Intake and Output Vital Signs (last 24 hours): Temp Pulse Resp BP Pulse Ox 97.9 F 66 20 104/68 99 03/24/19 08:05 03/24/19 08:05 03/24/19 08:05 03/24/19 08:05 03/24/19 08:05 Intake and Output: 03/24/19 03/24/19 06:59 18:59 Intake Total 720 Output Total 550 Balance 170 - Medications Medications: Current Medications Aspirin (Ecotrin) 81 mg PO DAILY [facility] Last Admin: 03/23/19 09:40 Dose: 81 mg Atenolol (Tenormin) 12.5 mg PO BID [facility] Last Admin: 03/23/19 17:41 Dose: 12.5 mg Atorvastatin Calcium (Lipitor) 40 mg PO HS [facility] Last Admin: 03/23/19 22:05 Dose: 40 mg Clobetasol Propionate (Temovate 0.05%) 0 gm TOP BID [facility] Last Admin: 03/23/19 09:41 Dose: Not Given Collagenase (Santyl) 0 gm TOP DAILY [facility] Last Admin: 03/23/19 09:42 Dose: Not Given Furosemide (Lasix) 40 mg PO 0800,1400 [facility] Last Admin: 03/23/19 13:50 Dose: Not Given Ceftaroline Fosamil 400 mg/ (Sodium Chloride) 100 mls @ 100 mls/hr IVPB 0600,1800 [facility]; Protocol Stop: 03/26/19 06:01 Last Admin: 03/24/19 06:45 Dose: 100 mls/hr Lactic Acid (Lac-Hydrin 12% Cream (140 G)) 0 ea TOP DAILY [facility] Last Admin: 03/23/19 13:55 Dose: 1 applic Sacubitril/Valsartan (Entresto 24 Mg-26 Mg Tablet) 1 each PO BID [facility] Last Admin: 03/23/19 17:41 Dose: 1 each Simethicone (Mylicon Liq) 40 mg PO QID [facility] Last Admin: 03/23/19 22:03 Dose: 40 mg Spironolactone (Aldactone) 25 mg PO DAILY [facility] Last Admin: 03/23/19 09:39 Dose: 25 mg Verapamil HCl (Calan Tab) 40 mg PO TID [facility] Last Admin: 03/23/19 17:41 Dose: 40 mg Verapamil HCl (Verapamil Inj) 2.5 mg IVP Q6H PRN PRN Reason: for heart rate >130 Warfarin Sodium (Coumadin) 6 mg PO 1800 [facility]; Protocol Last Admin: 03/22/19 18:32 Dose: 6 mg - Labs Labs: 03/23/19 05:30 03/23/19 05:30 PT 44.3 SECONDS (9.4-12.5) H 03/23/19 16:50 INR 3.99 H* 03/23/19 16:50 APTT 36.2 Seconds (26.9-38.3) 03/16/19 09:30 Attending/Attestation - Attestation I have personally seen and examined this patient.: Yes I have fully participated in the care of the patient.: Yes I have reviewed all pertinent clinical information, including history, physical exam and plan: Yes
--- NOTE | 2019-03-21 19:28 | CARD ---
APPROVED REPORT Date of service: 03/20/2019 EKG Measurement Heart [id number] <Conclusion> Atrial fibrillation Possible Septal infarct, age undetermined NDSTT abnormalities CCR Abnormal ECG
--- NOTE | 2019-03-22 07:02 | CP.PCM.PN ---
Subjective - Date & Time of Evaluation Date of Evaluation: 03/22/19 Time of Evaluation: 06:42 - Subjective Subjective: Awake, no distress,feels okay,drinking water Reason for consultation and follow up: Cardiac evaluation and follow up rapid ventricular rate atrial fibrillation, history of chronic atrial fibrillation,on Coumadin, CHF, admitted for decompensated acute on chronic systolic dysfunction congestive heart failure and rapid ventricular rate atrial fibrillation Seen and examined by me and Dr. Harper Objective - Vital Signs/Intake and Output Vital Signs (last 24 hours): Temp Pulse Resp BP Pulse Ox 97 F L 90 18 116/82 98 03/21/19 16:38 03/21/19 17:52 03/21/19 16:38 03/21/19 17:52 03/21/19 16:38 Intake and Output: 03/22/19 03/22/19 06:59 18:59 Intake Total 840 Output Total 550 Balance 290 - Medications Medications: Current Medications Aspirin (Ecotrin) 81 mg PO DAILY [facility] Last Admin: 03/21/19 09:36 Dose: 81 mg Atenolol (Tenormin) 12.5 mg PO BID [facility] Last Admin: 03/21/19 17:52 Dose: 12.5 mg Atorvastatin Calcium (Lipitor) 40 mg PO HS [facility] Last Admin: 03/21/19 21:55 Dose: 40 mg Clobetasol Propionate (Temovate 0.05%) 0 gm TOP BID [facility] Last Admin: 03/21/19 17:52 Dose: Not Given Collagenase (Santyl) 0 gm TOP DAILY [facility] Last Admin: 03/21/19 09:37 Dose: 1 applic Furosemide (Lasix) 40 mg PO 0800,1400 [facility] Last Admin: 03/21/19 13:43 Dose: Not Given Ceftaroline Fosamil 400 mg/ (Sodium Chloride) 100 mls @ 100 mls/hr IVPB 0600,1800 [facility]; Protocol Stop: 03/26/19 06:01 Last Admin: 03/22/19 06:13 Dose: 100 mls/hr Lactic Acid (Lac-Hydrin 12% Cream (140 G)) 0 ea TOP DAILY [facility] Last Admin: 03/21/19 09:37 Dose: 1 applic Sacubitril/Valsartan (Entresto 24 Mg-26 Mg Tablet) 1 each PO BID [facility] Last Admin: 03/21/19 17:53 Dose: 1 each Simethicone (Mylicon Liq) 40 mg PO QID [facility] Last Admin: 03/21/19 21:55 Dose: 40 mg Spironolactone (Aldactone) 25 mg PO DAILY [facility] Last Admin: 03/21/19 09:33 Dose: Not Given Verapamil HCl (Calan Tab) 40 mg PO TID [facility] Last Admin: 03/21/19 17:50 Dose: 40 mg Verapamil HCl (Verapamil Inj) 2.5 mg IVP Q6H PRN PRN Reason: for heart rate >130 Warfarin Sodium (Coumadin) 4 mg PO 1800 [facility] Last Admin: 03/21/19 17:51 Dose: 4 mg - Labs Labs: 03/20/19 06:50 03/20/19 06:50 PT 22.3 SECONDS (9.4-12.5) H 03/20/19 06:50 INR 1.97 03/20/19 06:50 APTT 36.2 Seconds (26.9-38.3) 03/16/19 09:30 - Constitutional Appears: Non-toxic, No Acute Distress - Head Exam Head Exam: NORMAL INSPECTION, NORMOCEPHALIC - Eye Exam Eye Exam: Normal appearance Pupil Exam: NORMAL ACCOMODATION - ENT Exam ENT Exam: Mucous Membranes Moist, Normal Exam - Respiratory Exam Respiratory Exam: Decreased Breath Sounds, NORMAL BREATHING PATTERN - Cardiovascular Exam Cardiovascular Exam: +S1 - GI/Abdominal Exam GI & Abdominal Exam: Soft, Normal Bowel Sounds - Extremities Exam Extremities Exam: Full ROM Additional comments: 1-2+ edema leg dressing - Neurological Exam Neurological Exam: Alert, Awake, Oriented x3 - Psychiatric Exam Psychiatric exam: Normal Affect, Normal Mood - Skin Skin Exam: Dry, Normal Color, Warm Assessment and Plan - Assessment and Plan (Free Text) Assessment: An 83 year old male who came in to the ER due to shortness of breath and leg edema. 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 Admitted for rapid atrial fibrillation and admitted for decompensated acute on chronic systolic dysfunction congestive heart failure. Follows up with Dr. Bourgeois. As per Dr. Bourgeois, no significant coronary artery disease. Echo done and showed moderately impaired systolic dysfunction LVEF 35%, RV moderately dilated, mild aortic regurgitation, moderate to severe mitral regurgitation, mild tricuspid regurgitation RVSP 26 mmHg. Controlled atrial fibrillation. Digoxin given. On Verapamil. Denies shortness of breath. Podiatry on consult. Leg wound culture positive for Enterobacter clocae. ID on consult. On IV antibiotics. Cardiac status stable. Plan: Cardiac status stable Denies shortness of breath Heart rate controlled rate Blood pressure stable On Tenormin 12.5 mg BID, Lipitor 40 mg daily, Lasix 40 mg BID, Cozaar 25 mg daily, Entresto 1 tab BID, Aldactone 25 mg daily Verapamil 40 mg TID, Coumadin 4 mg daily Labs in the morning Continue to diurese Continue current treatment Continue current medications Continue IV antibiotics per ID (positive wound leg culture) Will follow up Plan and treatment discussed with Dr. Harper
[2019-03-22] MEDS: SACUBITRIL 24mg/VALSARTAN 26mg tab PO SCH ×2 (09:30→18:32)
[2019-03-22] MEDS: Clobetasol 0.05% Oint(15 gm) TOP SCH ×2 (10:00→18:33)
--- NOTE | 2019-03-22 11:08 | CP.PCM.PN ---
<Neri Xiong - Last Filed: 03/22/19 11:04> Subjective - Date & Time of Evaluation Date of Evaluation: 03/22/19 Time of Evaluation: 11:05 - Subjective Subjective: Podiatry Progress Note Dr. Chaudhary/Jc 83M seen at bedside for left lateral leg wound. Patient is AAO x 3 and NAD, resting comfortably in bed. Denies any acute overnight events or new pedal complaints. Denies any pain to the wound at this time. Denies any recent N/V/F/C/CP/SOB/D Objective - Vital Signs/Intake and Output Vital Signs (last 24 hours): Temp Pulse Resp BP Pulse Ox 97.7 F 70 20 101/66 95 03/22/19 08:19 03/22/19 09:31 03/22/19 08:19 03/22/19 09:31 03/22/19 08:19 Intake and Output: 03/22/19 03/22/19 06:59 18:59 Intake Total 840 Output Total 550 Balance 290 - Medications Medications: Current Medications Aspirin (Ecotrin) 81 mg PO DAILY [facility] Last Admin: 03/22/19 09:30 Dose: 81 mg Atenolol (Tenormin) 12.5 mg PO BID [facility] Last Admin: 03/22/19 09:31 Dose: 12.5 mg Atorvastatin Calcium (Lipitor) 40 mg PO HS [facility] Last Admin: 03/21/19 21:55 Dose: 40 mg Clobetasol Propionate (Temovate 0.05%) 0 gm TOP BID [facility] Last Admin: 03/21/19 17:52 Dose: Not Given Collagenase (Santyl) 0 gm TOP DAILY [facility] Last Admin: 03/21/19 09:37 Dose: 1 applic Furosemide (Lasix) 40 mg PO 0800,1400 [facility] Last Admin: 03/22/19 09:30 Dose: Not Given Ceftaroline Fosamil 400 mg/ (Sodium Chloride) 100 mls @ 100 mls/hr IVPB 0600,1800 [facility]; Protocol Stop: 03/26/19 06:01 Last Admin: 03/22/19 06:13 Dose: 100 mls/hr Lactic Acid (Lac-Hydrin 12% Cream (140 G)) 0 ea TOP DAILY [facility] Last Admin: 03/21/19 09:37 Dose: 1 applic Sacubitril/Valsartan (Entresto 24 Mg-26 Mg Tablet) 1 each PO BID [facility] Last Admin: 03/22/19 09:30 Dose: Not Given Simethicone (Mylicon Liq) 40 mg PO QID [facility] Last Admin: 03/21/19 21:55 Dose: 40 mg Spironolactone (Aldactone) 25 mg PO DAILY [facility] Last Admin: 03/22/19 09:29 Dose: 25 mg Verapamil HCl (Calan Tab) 40 mg PO TID [facility] Last Admin: 03/22/19 09:29 Dose: 40 mg Verapamil HCl (Verapamil Inj) 2.5 mg IVP Q6H PRN PRN Reason: for heart rate >130 Warfarin Sodium (Coumadin) 4 mg PO 1800 [facility] Last Admin: 03/21/19 17:51 Dose: 4 mg - Labs Labs: 03/20/19 06:50 03/20/19 06:50 PT 22.3 SECONDS (9.4-12.5) H 03/20/19 06:50 INR 1.97 03/20/19 06:50 APTT 36.2 Seconds (26.9-38.3) 03/16/19 09:30 - Constitutional Appears: Well, Non-toxic, No Acute Distress - Extremities Exam Additional comments: Bilateral Lower Extremity Exam VASC: DP/PT pulses 2/4 bilaterally, CFT less than 3 seconds X 10, TG within normal limits from proximal to distal, mild lower extremity edema noted NEURO: epicritic and protective sensations grossly intact DERM: both legs with chronic skin changes due to peripheral vascular disease LEFT: ulceration measuring 3 cm X 2 cm X 0.3 cm noted to the lateral aspect of the left leg, no drainage, 50% fibrotic and 50% granular base, no erythema, no maceration, no probe to bone, no tracking, no tunneling, no malodor RIGHT: areas of healing and epithelialized wounds noted to the right leg, no clinical signs of infection MSK: Minimal pain on palpation of lateral left leg wound, improving. No gross deformities noted - Neurological Exam Neurological Exam: Alert, Awake, Oriented x3 - Psychiatric Exam Psychiatric exam: Normal Affect, Normal Mood Assessment and Plan - Assessment and Plan (Free Text) Assessment: 83M seen at bedside for left lateral leg wound Plan: Patient seen and evaluated Plan discussed with Dr. Arloro Continue abx per ID Left leg wound cx: Coag neg staph, E. cloacae Xray: no acute findings Wound dressed with Santyl, Mepilex No plan for surgical intervention at this time Podiatry will continue to follow while patient in house <Evelio Chaudhary - Last Filed: 03/24/19 08:26> Objective - Vital Signs/Intake and Output Vital Signs (last 24 hours): Temp Pulse Resp BP Pulse Ox 97.9 F 66 20 104/68 99 03/24/19 08:05 03/24/19 08:05 03/24/19 08:05 03/24/19 08:05 03/24/19 08:05 Intake and Output: 03/24/19 03/24/19 06:59 18:59 Intake Total 720 Output Total 550 Balance 170 - Medications Medications: Current Medications Aspirin (Ecotrin) 81 mg PO DAILY [facility] Last Admin: 03/23/19 09:40 Dose: 81 mg Atenolol (Tenormin) 12.5 mg PO BID [facility] Last Admin: 03/23/19 17:41 Dose: 12.5 mg Atorvastatin Calcium (Lipitor) 40 mg PO HS [facility] Last Admin: 03/23/19 22:05 Dose: 40 mg Clobetasol Propionate (Temovate 0.05%) 0 gm TOP BID [facility] Last Admin: 03/23/19 09:41 Dose: Not Given Collagenase (Santyl) 0 gm TOP DAILY [facility] Last Admin: 03/23/19 09:42 Dose: Not Given Furosemide (Lasix) 40 mg PO 0800,1400 [facility] Last Admin: 03/23/19 13:50 Dose: Not Given Ceftaroline Fosamil 400 mg/ (Sodium Chloride) 100 mls @ 100 mls/hr IVPB 0600,1800 [facility]; Protocol Stop: 03/26/19 06:01 Last Admin: 03/24/19 06:45 Dose: 100 mls/hr Lactic Acid (Lac-Hydrin 12% Cream (140 G)) 0 ea TOP DAILY [facility] Last Admin: 03/23/19 13:55 Dose: 1 applic Sacubitril/Valsartan (Entresto 24 Mg-26 Mg Tablet) 1 each PO BID [facility] Last Admin: 03/23/19 17:41 Dose: 1 each Simethicone (Mylicon Liq) 40 mg PO QID [facility] Last Admin: 03/23/19 22:03 Dose: 40 mg Spironolactone (Aldactone) 25 mg PO DAILY [facility] Last Admin: 03/23/19 09:39 Dose: 25 mg Verapamil HCl (Calan Tab) 40 mg PO TID [facility] Last Admin: 03/23/19 17:41 Dose: 40 mg Verapamil HCl (Verapamil Inj) 2.5 mg IVP Q6H PRN PRN Reason: for heart rate >130 Warfarin Sodium (Coumadin) 6 mg PO 1800 [facility]; Protocol Last Admin: 03/22/19 18:32 Dose: 6 mg - Labs Labs: 03/23/19 05:30 03/23/19 05:30 PT 44.3 SECONDS (9.4-12.5) H 03/23/19 16:50 INR 3.99 H* 03/23/19 16:50 APTT 36.2 Seconds (26.9-38.3) 03/16/19 09:30 Attending/Attestation - Attestation I have personally seen and examined this patient.: Yes I have fully participated in the care of the patient.: Yes I have reviewed all pertinent clinical information, including history, physical exam and plan: Yes
--- NOTE | 2019-03-22 18:27 | PN ---
DATE: 03/22/2019 SUBJECTIVE: The patient is 83 years old, seen and examined, lying in bed. Seems to be comfortable. Complained of generalized weakness. Complained of back pain and leg pain. The patient was initially admitted because of increasing shortness of breath and leg edema; has been diuresed, seems to be doing better. His past medical history is significant for congestive heart failure and coronary artery disease along with atrial fibrillation. Also has history of CVA in the past. PHYSICAL EXAMINATION: GENERAL: He looks comfortable. He is lying in bed flat. VITAL SIGNS: He is afebrile, pulse 80, respiration 18, and blood pressure 104/67. LUNGS: Bilateral soft crackles at the bases. HEART: S1 and S2 audible. ABDOMEN: Soft, obese, and nontender. No rebound. No guarding. NEUROLOGIC: The patient is awake and alert; able to communicate. EXTREMITIES: Bilateral legs; chronic stasis dermatitis, pigmentation, and edema. LABORATORY DATA: WBC 13.7, hemoglobin 14.5, hematocrit 44.6, and platelet 225. PT 22.3 and INR 1.97. Chemistry; sodium 138, potassium 4.7, chloride 93, CO2 of 33, BUN 32, creatinine 1.2, and blood sugar 119. Total bilirubin 1.6. Leg wound, growing Enterobacter cloacae. Blood cultures are negative. EKG done on 03/20/2019 shows atrial fibrillation. ASSESSMENT: 1. Bilateral leg cellulitis. 2. Chronic atrial fibrillation. 3. History of hypertension. 4. Congestive heart failure, acute on chronic, systolic. 5. History of coronary artery disease. 6. Severe peripheral vascular disease. 7. Deconditioning. PLAN: Currently the patient is on IV diuretics. He is on verapamil. He is on aspirin 81 mg daily. He is getting Entresto. He is on Lasix 40 mg every 12 hours. He is on statins. He is also receiving . He is subtherapeutic, we will give him Coumadin 6 mg today. Monitor his electrolytes. Out of bed to chair. Physical therapy for the patient has been requested. Billie Wakefield MD [facility] # [id number]
[2019-03-22] MEDS: Simethicone 40 mg/0.6 ml Liquid (30 ml) PO SCH (21:12)
--- NOTE | 2019-03-22 21:37 | PN ---
DATE: 03/22/2019 SUBJECTIVE: The patient is in bed, in no acute distress, nontoxic. The patient is seen in room 364, bed 1. PHYSICAL EXAMINATION VITAL SIGNS: Temperature is 97, blood pressure is 100/60, respiratory rate of 20, heart rate of 96. HEENT: Unremarkable. NECK: Supple. LUNGS: Have decreased breath sounds. HEART: Normal S1 and S2. ABDOMEN: Soft, nontender. LABORATORY DATA: Reveals a white count of 13,700, hemoglobin of 14, and platelets of 225. BUN of 32, creatinine of 1.2. Urinalysis is noted. Left leg culture reveals Enterobacter cloacae and coagulase-negative staph. MEDICATIONS: Review of orders, the patient is on ceftaroline. ASSESSMENT AND PLAN: An 83-year-old male seen earlier today, bilateral lower extremity skin and skin structure infection with a sensitive coagulase-negative staphylococcus and Enterobacter and the patient with cerebrovascular accident, bladder cancer, atrial fibrillation, hypertension. On Teflaro day number 5, can be switched to p.o. Vantin when Podiatry is ready for discharge. The patient had plain x-rays of the lower extremities. No acute findings as per Dr. Blanca. We will follow with you. Kenn Peres MD
[2019-03-23 07:35] LABS: BASO # 0.01 K/mm3 (0.0-2.0); BASO % 0.1 % (0.0-3.0); EOS # 0.1 (0.0-0.7); HEMOGLOBIN 13.5 g/dL (14.0-18.0); LYMPH % 10.3 % (22.0-35.0); MEAN CELL VOLUME 87.6 fl (80.0-105.0); MEAN CORPUSCULAR HEMOGLOBIN 27.6 pg (25.0-35.0); MEAN CORPUSCULAR HGB CONC 31.5 g/dl (31.0-37.0); MEAN PLATELET VOLUME 10.8 fl (7.0-11.0); RBC 4.9 10^6/uL (3.5-6.1); RED CELL DISTRIBUTION WIDTH 15.2 % (11.5-14.5); WHITE BLOOD COUNT 9.3 10^3/uL (4.5-11.0)
[2019-03-23 07:57] LABS: PROTHROMBIN TIME 40.5 SECONDS (9.4-12.5)
[2019-03-23 08:01] LABS: INR 3.58
[2019-03-23 08:36] LABS: ALB/GLOB RATIO 1.1 (1.1-1.8); ALBUMIN 3.5 g/dL (3.0-4.8); ALT/SGPT 9 U/L (7-56); AST/SGOT 43 U/L (17-59); BLOOD UREA NITROGEN 41 mg/dL (7-21); CALCIUM 8.5 mg/dL (8.4-10.5); GFR NON-AFRICAN AMERICAN 53
[2019-03-23] MEDS: SACUBITRIL 24mg/VALSARTAN 26mg tab PO SCH ×2 (09:39→17:41)
[2019-03-23] MEDS: Clobetasol 0.05% Oint(15 gm) TOP SCH (09:41)
[2019-03-23] MEDS: Collagenase 250 Units/gm Ointment(30 gm) TOP SCH (09:42)
--- NOTE | 2019-03-23 10:38 | CP.PCM.PN ---
Subjective - Date & Time of Evaluation Date of Evaluation: 03/23/19 Time of Evaluation: 10:37 - Subjective Subjective: Podiatry Progress Note Dr. Chaudhary/Jc 83M seen at bedside for left lateral leg wound. Patient is AAO x 3 and NAD, resting comfortably in bed. Denies any acute overnight events or new pedal complaints. Denies any pain to the wound at this time. Denies any recent N/V/F/C/CP/SOB/D Objective - Vital Signs/Intake and Output Vital Signs (last 24 hours): Temp Pulse Resp BP Pulse Ox 98 F 74 19 98/65 L 94 L 03/23/19 08:41 03/23/19 08:41 03/23/19 08:41 03/23/19 08:41 03/23/19 08:41 Intake and Output: 03/23/19 03/23/19 06:59 18:59 Intake Total 1080 Output Total 850 Balance 230 - Medications Medications: Current Medications Aspirin (Ecotrin) 81 mg PO DAILY [facility] Last Admin: 03/23/19 09:40 Dose: 81 mg Atenolol (Tenormin) 12.5 mg PO BID [facility] Last Admin: 03/23/19 09:39 Dose: 12.5 mg Atorvastatin Calcium (Lipitor) 40 mg PO HS [facility] Last Admin: 03/22/19 21:12 Dose: 40 mg Clobetasol Propionate (Temovate 0.05%) 0 gm TOP BID [facility] Last Admin: 03/23/19 09:41 Dose: Not Given Collagenase (Santyl) 0 gm TOP DAILY [facility] Last Admin: 03/23/19 09:42 Dose: Not Given Furosemide (Lasix) 40 mg PO 0800,1400 [facility] Last Admin: 03/23/19 09:44 Dose: Not Given Ceftaroline Fosamil 400 mg/ (Sodium Chloride) 100 mls @ 100 mls/hr IVPB 0600,1800 [facility]; Protocol Stop: 03/26/19 06:01 Last Admin: 03/23/19 05:22 Dose: 100 mls/hr Lactic Acid (Lac-Hydrin 12% Cream (140 G)) 0 ea TOP DAILY [facility] Last Admin: 03/21/19 09:37 Dose: 1 applic Sacubitril/Valsartan (Entresto 24 Mg-26 Mg Tablet) 1 each PO BID [facility] Last Admin: 03/23/19 09:39 Dose: 1 each Simethicone (Mylicon Liq) 40 mg PO QID [facility] Last Admin: 03/22/19 21:12 Dose: 40 mg Spironolactone (Aldactone) 25 mg PO DAILY [facility] Last Admin: 03/23/19 09:39 Dose: 25 mg Verapamil HCl (Calan Tab) 40 mg PO TID [facility] Last Admin: 03/23/19 09:39 Dose: 40 mg Verapamil HCl (Verapamil Inj) 2.5 mg IVP Q6H PRN PRN Reason: for heart rate >130 Warfarin Sodium (Coumadin) 6 mg PO 1800 [facility]; Protocol Last Admin: 03/22/19 18:32 Dose: 6 mg - Labs Labs: 03/23/19 05:30 03/23/19 05:30 PT 40.5 SECONDS (9.4-12.5) H 03/23/19 05:30 INR 3.58 H* 03/23/19 05:30 APTT 36.2 Seconds (26.9-38.3) 03/16/19 09:30 - Constitutional Appears: Well, Non-toxic, No Acute Distress - Head Exam Head Exam: ATRAUMATIC, NORMOCEPHALIC - Extremities Exam Additional comments: Bilateral Lower Extremity Exam VASC: DP/PT pulses 2/4 bilaterally, CFT less than 3 seconds X 10, TG within normal limits from proximal to distal, mild lower extremity edema noted NEURO: epicritic and protective sensations grossly intact DERM: both legs with chronic skin changes due to peripheral vascular disease LEFT: ulceration measuring 3 cm X 2 cm X 0.3 cm noted to the lateral aspect of the left leg, no drainage, 50% fibrotic and 50% granular base, no erythema, no maceration, no probe to bone, no tracking, no tunneling, no malodor RIGHT: areas of healing and epithelialized wounds noted to the right leg, no clinical signs of infection MSK: Minimal pain on palpation of lateral left leg wound, improving. No gross deformities noted - Neurological Exam Neurological Exam: Alert, Awake, Oriented x3 - Psychiatric Exam Psychiatric exam: Normal Affect, Normal Mood Assessment and Plan - Assessment and Plan (Free Text) Assessment: 83M seen at bedside for left lateral leg wound Plan: Patient seen and evaluated with Dr. Greene Plan discussed Continue abx per ID Left leg wound cx: Coag neg alyssahRober clotracie Xray: no acute findings Wound dressed with Santyl, Mepilex No plan for surgical intervention at this time Podiatry will continue to follow while patient in house
--- NOTE | 2019-03-23 13:52 | PN ---
DATE: 03/23/2019 REASON FOR CONSULTATION AND FOLLOWUP: Cardiac evaluation, history of chronic atrial fibrillation, cardiomyopathy, no significant coronary artery disease as per Dr. Bourgeois, cardiomyopathy, nonischemic, admitted with atrial fibrillation with rapid ventricular rate. SUBJECTIVE: The patient denies any chest pain, shortness of breath, any palpitations, obviously not in apparent distress, wanted to go home. PHYSICAL EXAMINATION: VITAL SIGNS: Temperature afebrile, heart rate 74, blood pressure 100/66. HEENT: PERRLA. Extraocular muscles intact. NECK: Supple. No carotid bruits. No thyromegaly. CHEST: Clear to auscultation. HEART: S1 and S2 regular. ABDOMEN: Soft. EXTREMITIES: Clubbing and cyanosis negative. LABORATORY DATA: WBC 9.3, hemoglobin 13.5, hematocrit 42.9, platelet count 146. Chemistry shows sodium 137, potassium 4, chloride 95, carbon dioxide 37, anion gap of 9, BUN 41, creatinine 1.3. Troponin remains negative at 0.02. IMPRESSION: This is an 83-year-old male with past medical history, no significant coronary artery disease as per Dr. Bourgeois, history of nonischemic cardiomyopathy, history of chronic atrial fibrillation, history of cerebrovascular accident, status post tPA in the past, noncompliance with medication, admitted with decompensated congestive heart failure and atrial fibrillation with rapid rate, now rate is well controlled. Most recent echo showed ejection fraction of 35%, right ventricle moderately dilated, mild aortic regurgitation, [id number] mitral regurgitation, mild tricuspid regurgitation, right ventricular systolic pressure 25. Rate is well controlled on digoxin and verapamil. Continue Coumadin. The goal is to keep INR between 2 to 2.5. INR is today 3.58, so we will hold the Coumadin now because of supratherapeutic INR. Continue spironolactone, continue Lasix, continue verapamil to control heart rate, continue baby aspirin. Continue Entresto. Continue low-dose verapamil. We will follow with you. The patient only got a couple of doses of digoxin to control the heart rate and not on a maintenance dose of digoxin because of the age and the possibility of digoxin toxicity. Discussed with Dr. Bourgeois and updated him. Upon discharge, the patient will be followed with Dr. Bourgeois. The patient lives next door to Dr. Bourgeois's office but the patient is very noncompliant. Emphasis was made on the compliance with the medication. As mentioned, we will hold the Coumadin, repeat INR tomorrow. The patient also has cellulitis and is getting IV antibiotics. When the patient is cleared from Infectious Disease, the patient is okay to be discharged from Cardiology point of view. He needs to follow PT/INR and the goal is to keep INR between 2 to 2.5, now supratherapeutic. We will repeat blood workup tomorrow. Thank you Dr. Taylor for providing us the opportunity in taking care of the patient, Cosmo Otero. Nino Harper MD
[2019-03-23] MEDS: Ammonium Lactate 12% Cream (140 g) TOP SCH (13:55)
[2019-03-23 17:33] LABS: PROTHROMBIN TIME 44.3 SECONDS (9.4-12.5)
[2019-03-23 17:35] LABS: INR 3.99
[2019-03-23] MEDS: Simethicone 40 mg/0.6 ml Liquid (30 ml) PO SCH ×3 (17:39→22:03)
--- NOTE | 2019-03-23 23:30 | PN ---
DATE: 03/23/2019 SUBJECTIVE: The patient is seen in bed, in no acute distress, and nontoxic. PHYSICAL EXAMINATION: VITAL SIGNS: Temperature is 98, blood pressure is 111/70, and respiratory rate is 18. HEENT: Unremarkable. NECK: Supple. LUNGS: Decreased breath sounds. HEART: Normal S1 and S2. ABDOMEN: Soft. LABORATORY DATA: Reveals white count of 9.3. BUN of 41 and creatinine of 1.3. Leg cultures Enterobacter cloacae and coag-negative Staph. REVIEW OF ORDERS: Reveals the patient to be on ceftaroline. ASSESSMENT AND PLAN: An 83-year-old male was seen earlier today with bilateral lower extremity skin and skin structure infection since coag-negative Staphylococcus, Enterobacter, and the patient with cerebrovascular accident, bladder cancer, atrial fibrillation, hypertension, and on Teflaro day #6, may be we will switch to p.o. Vantin upon discharge. We will discuss with Podiatry. Kenn Peres MD
--- NOTE | 2019-03-24 03:06 | PN ---
DATE: 03/23/2019 SUBJECTIVE: The patient has no complaints of any chest pain. No shortness of breath. No headaches. PHYSICAL EXAMINATION: VITAL SIGNS: Temperature is 98.3, pulse of 70, blood pressure 111/72, and respiration is 19. GENERAL: The patient is lying in bed, flat, comfortable. HEENT: No oral lesion. Anicteric sclerae. Moist mucosa. NECK: No JVD, adenopathy, or thyromegaly. CARDIOVASCULAR: S1 and S2, regular. No murmurs, rubs, or gallops. LUNGS: Clear to auscultation bilaterally. No wheeze, rales, or rhonchi. ABDOMEN: Bowel sounds are positive, soft, nontender and nondistended. EXTREMITIES: no cyanosis, clubbing or edema. ASSESSMENT: 1. Left leg wound secondary to Enterobacter. 2. Hypotension. 3. Atrial fibrillation. 4. Congestive heart failure secondary to systolic dysfunction, chronic, stable. 5. Coronary artery disease. 6. Dyslipidemia. 7. Peripheral arterial disease. PLAN: The patient is going to continue on Coumadin for anticoagulation and the patient's INR is 3.9. The Coumadin will be held today. The patient is getting local wound care and he is on heart-healthy diet. He is being followed by Infectious Disease. He is on Lipitor for dyslipidemia. He is going to continue to follow up. Nicolas Jean-Baptiste MD
[2019-03-24] MEDS: Simethicone 40 mg/0.6 ml Liquid (30 ml) PO SCH ×4 (09:44→21:38)
[2019-03-24] MEDS: SACUBITRIL 24mg/VALSARTAN 26mg tab PO SCH ×2 (09:44→18:14)
[2019-03-24] MEDS: Clobetasol 0.05% Oint(15 gm) TOP SCH ×2 (09:48→17:35)
[2019-03-24] MEDS: Collagenase 250 Units/gm Ointment(30 gm) TOP SCH (09:48)
[2019-03-24] MEDS: Ammonium Lactate 12% Cream (140 g) TOP SCH (09:49)
--- NOTE | 2019-03-24 09:57 | PN ---
DATE: 03/24/2019 SUBJECTIVE: An 83-year-old white male admitted to the hospital with new onset of hypertension, atrial fibrillation, cellulitis of lower extremities, and congestive heart failure. The patient was found to have a low ejection fraction of less than 35%. He has nonischemic heart disease and his atrial fibrillation is under control. He is on Coumadin. His INR is still elevated at 3.99; the repeat is pending. His extremities are without cyanosis, clubbing or edema. He has resolution of his cellulitis. He is on day #6 of IV antibiotics. He will be switched to p.o. Vantin. PHYSICAL EXAMINATION: VITAL SIGNS: His blood pressure is 111/72. CHEST: His chest is clear to auscultation and percussion. ABDOMEN: Obese, but benign. HEART: Regular with controlled ventricular response. ASSESSMENT AND PLAN: Case was discussed with the patient. He possibly will go home today, if he is not dizzy or lightheaded when he stands. He will be referred to Transitional Care Unit if he needs a few more days. Adjust his physical therapy. He does have a younger brother he can live with for a brief period of time being home. Plan depends on how the patient is today. Brayan Taylor MD
--- NOTE | 2019-03-24 10:20 | CP.PCM.PN ---
Subjective - Date & Time of Evaluation Date of Evaluation: 03/24/19 Time of Evaluation: 10:18 - Subjective Subjective: Podiatry Progress Note Dr. Chaudhary/Jc 83 y/o male seen at bedside for left lateral leg wound. Patient is AAO x 3 and NAD, resting comfortably in bed. Denies any acute overnight events or new pedal complaints. Denies any pain to the wound at this time. Denies any recent N/V/F/C/CP/SOB/D Objective - Vital Signs/Intake and Output Vital Signs (last 24 hours): Temp Pulse Resp BP Pulse Ox 97.9 F 66 20 104/68 99 03/24/19 08:05 03/24/19 08:05 03/24/19 08:05 03/24/19 09:45 03/24/19 08:05 Intake and Output: 03/24/19 03/24/19 06:59 18:59 Intake Total 720 Output Total 550 Balance 170 - Medications Medications: Current Medications Aspirin (Ecotrin) 81 mg PO DAILY [facility] Last Admin: 03/24/19 09:44 Dose: 81 mg Atenolol (Tenormin) 12.5 mg PO BID [facility] Last Admin: 03/24/19 09:45 Dose: 12.5 mg Atorvastatin Calcium (Lipitor) 40 mg PO HS [facility] Last Admin: 03/23/19 22:05 Dose: 40 mg Clobetasol Propionate (Temovate 0.05%) 0 gm TOP BID [facility] Last Admin: 03/24/19 09:48 Dose: Not Given Collagenase (Santyl) 0 gm TOP DAILY [facility] Last Admin: 03/24/19 09:48 Dose: 1 applic Furosemide (Lasix) 40 mg PO 0800,1400 [facility] Last Admin: 03/24/19 09:45 Dose: 40 mg Ceftaroline Fosamil 400 mg/ (Sodium Chloride) 100 mls @ 100 mls/hr IVPB 0600,1800 [facility]; Protocol Stop: 03/26/19 06:01 Last Admin: 03/24/19 06:45 Dose: 100 mls/hr Lactic Acid (Lac-Hydrin 12% Cream (140 G)) 0 ea TOP DAILY [facility] Last Admin: 03/24/19 09:49 Dose: 1 applic Sacubitril/Valsartan (Entresto 24 Mg-26 Mg Tablet) 1 each PO BID [facility] Last Admin: 03/24/19 09:44 Dose: 1 each Simethicone (Mylicon Liq) 40 mg PO QID [facility] Last Admin: 03/24/19 09:44 Dose: 40 mg Spironolactone (Aldactone) 25 mg PO DAILY [facility] Last Admin: 03/24/19 09:45 Dose: 25 mg Verapamil HCl (Calan Tab) 40 mg PO TID [facility] Last Admin: 03/24/19 09:46 Dose: 40 mg Verapamil HCl (Verapamil Inj) 2.5 mg IVP Q6H PRN PRN Reason: for heart rate >130 Warfarin Sodium (Coumadin) 6 mg PO 1800 [facility]; Protocol Last Admin: 03/22/19 18:32 Dose: 6 mg - Labs Labs: 03/23/19 05:30 03/23/19 05:30 PT 44.3 SECONDS (9.4-12.5) H 03/23/19 16:50 INR 3.99 H* 03/23/19 16:50 APTT 36.2 Seconds (26.9-38.3) 03/16/19 09:30 - Constitutional Appears: Well, Non-toxic, No Acute Distress - Head Exam Head Exam: ATRAUMATIC, NORMOCEPHALIC - Extremities Exam Additional comments: Bilateral Lower Extremity Exam VASC: DP/PT pulses 2/4 bilaterally, CFT less than 3 seconds X 10, TG within nor mal limits from proximal to distal, mild lower extremity edema noted NEURO: epicritic and protective sensations grossly intact DERM: both legs with chronic skin changes due to peripheral vascular disease LEFT: ulceration measuring 3 cm X 2 cm X 0.3 cm noted to the lateral aspect of the left leg, no drainage, 50% fibrotic and 50% granular base, no erythema, no maceration, no probe to bone, no tracking, no tunneling, no malodor RIGHT: areas of healing and epithelialized wounds noted to the right leg, no clinical signs of infection MSK: Minimal pain on palpation of lateral left leg wound, improving. No gross deformities noted - Neurological Exam Neurological Exam: Alert, Awake, Oriented x3 - Psychiatric Exam Psychiatric exam: Normal Affect, Normal Mood Assessment and Plan - Assessment and Plan (Free Text) Assessment: 83M seen at bedside for left lateral leg wound Plan: Patient seen and evaluated Plan discussed Continue abx per ID Left leg wound cx: Coag neg staph, E. cloacae Xray: no acute findings Wound dressed with Santyl, Mepilex No plan for surgical intervention at this time Podiatry will continue to follow while patient in house
[2019-03-24 12:33] LABS: BASO # 0.01 K/mm3 (0.0-2.0); BASO % 0.1 % (0.0-3.0); EOS # 0.1 (0.0-0.7); EOS % 0.7 % (1.5-5.0); HEMOGLOBIN 13.1 g/dL (14.0-18.0); LYMPH # 0.8 (1.2-3.4); LYMPH % 8.6 % (22.0-35.0); MEAN CELL VOLUME 86.5 fl (80.0-105.0); MEAN CORPUSCULAR HGB CONC 32.3 g/dl (31.0-37.0); MEAN PLATELET VOLUME 10.4 fl (7.0-11.0); MONO % 11.3 % (1.0-6.0); RBC 4.68 10^6/uL (3.5-6.1); RED CELL DISTRIBUTION WIDTH 15.1 % (11.5-14.5)
[2019-03-24 12:50] LABS: ALB/GLOB RATIO 1.1 (1.1-1.8); ALBUMIN 3.3 g/dL (3.0-4.8); ALT/SGPT < 6 U/L (7-56); AST/SGOT 39 U/L (17-59); BLOOD UREA NITROGEN 50 mg/dL (7-21); CALCIUM 8.5 mg/dL (8.4-10.5); GFR NON-AFRICAN AMERICAN 45
[2019-03-24 13:05] LABS: PROTHROMBIN TIME 41.9 SECONDS (9.4-12.5)
[2019-03-24 13:07] LABS: INR 3.71
[2019-03-24] MEDS: Cefpodoxime (Vantin) 100 mg Tab PO SCH ×2 (13:31→21:37)
--- NOTE | 2019-03-24 17:15 | PN ---
DATE: 03/24/2019 SUBJECTIVE: The patient is seen in room 364, bed 1 earlier. No fevers, no chills. PHYSICAL EXAMINATION: VITAL SIGNS: Temperature is 97, blood pressure is 104/60, and respiratory rate is 18. HEENT: Unremarkable. NECK: Supple. LUNGS: Decreased breath sounds. HEART: Normal S1 and S2. ABDOMEN: Soft and nontender. LABORATORY DATA: Reveals white count of 9.3, hemoglobin of 13, platelets of 146. Chemistries reveals creatinine is 1.3. Urinalysis is noted. Microbiology reveals coag-negative Staph in the left leg and Enterobacter cloacae. Enterobacter cloacae is removed. There was sensitive organism. Coag-negative Staph is also sensitive. Coag-negative Staph in blood cultures are negative. MEDICATIONS: Review of orders: Reveals the patient to be on ceftaroline. Review of the imaging reveals the patient had an ultrasound with a normal KINGS and PVR addressed. Tibial and fibula x-ray, no acute findings. Chest x-ray, vascular congestion and cardiomegaly. note is reviewed. Possible being discharged today. ASSESSMENT AND PLAN: This is an 83-year-old male who was seen earlier, bilateral lower extremity skin and skin structure infection, coagulase-negative Enterobacter, cerebrovascular accident, bladder cancer, atrial fibrillation, hypertension. On day number 7, off Teflaro. We will discontinue Teflaro. The patient's legs have improved. We will complete with Vantin p.o. with adjusted for renal insufficiency at 100 mg p.o. b.i.d. third generation cephalosporin and p.o. version of ceftriaxone. We will complete with 3 days of p.o. Vantin 100 mg p.o. b.i.d. x3 days to complete therapy. Kenn Peres MD
--- NOTE | 2019-03-24 18:44 | PN ---
DATE: 03/24/2019 REASON FOR THE CONSULTATION: Followup cardiac evaluation, history of chronic atrial fibrillation, cardiomyopathy, coronary artery disease as per Dr. Bourgeois, cardiomyopathy non-ischemic, admitted with atrial fibrillation, rapid rate. SUBJECTIVE: The patient denies any chest pain, shortness of breath or any palpitation. OBJECTIVE: GENERAL: Not in apparent distress. VITAL SIGNS: As follows; temperature afebrile, heart rate 60, and blood pressure 104/68. HEENT: PERRLA. Extraocular muscles intact. NECK: Supple. No carotid bruits or thyromegaly. CHEST: Clear to auscultation. HEART: S1 and S2 regular. ABDOMEN: Soft. EXTREMITIES: Clubbing and cyanosis negative. LABORATORY DATA: Blood workup as follows: WBC 19, hemoglobin 13.2, hematocrit 42.9, and platelet count is 146. Chemistry showed sodium 137, potassium 4.2, chloride 95, carbon dioxide 37, anion gap of 19, BUN 14, and creatinine 1.3. IMPRESSION: An 83-year-old male with past medical history significant for non-ischemic cardiomyopathy, chronic atrial fibrillation. No significant coronary artery disease as per Dr. Bourgeois, being followed by Dr. Bourgeois. Admitted with atrial fibrillation with rapid ventricular rate, history of cerebrovascular accident status post TPA in the past, noncompliance with medication, who initially admitted with acute decompensated congestive heart failure, atrial fibrillation with rapid ventricular rate. Now rate is well-controlled. Now, the patient's 3 hour recent echo ejection of 35%, right ventricle moderately dilated, mild aortic regurgitation, [id number] mitral regurgitation, and moderate tricuspid regurgitation. Rate is well controlled. INR today is 3.9 and I will hold Coumadin until INR get below 2 and then restart Coumadin. Discussed with Dr. Taylor, once the patient is stable possibly discharge home and follow up with Dr. Bourgeois. In the meantime, continue spironolactone 25 p.o. b.i.d. and verapamil 40 mg p.o. t.i.d. Hold Coumadin until INR gets below 2, started on Entresto. Continue Lasix. Continue atorvastatin. CVS status is stable. Overall, the patient's condition is stable. We will follow with you. We will hold Coumadin and repeat INR tomorrow. Thank you Dr. Taylor for providing us the opportunity in taking care of the patient. Nino Harper MD
[2019-03-25 06:39] LABS: INR 3.19; PROTHROMBIN TIME 36.1 SECONDS (9.4-12.5)
[2019-03-25] MEDS: SACUBITRIL 24mg/VALSARTAN 26mg tab PO SCH ×2 (10:07→17:43)
[2019-03-25] MEDS: Clobetasol 0.05% Oint(15 gm) TOP SCH ×2 (10:07→17:44)
[2019-03-25] MEDS: Cefpodoxime (Vantin) 100 mg Tab PO SCH ×2 (10:10→21:55)
[2019-03-25] MEDS: Simethicone 40 mg/0.6 ml Liquid (30 ml) PO SCH ×4 (10:12→17:45)
--- NOTE | 2019-03-25 10:40 | PN ---
DATE: 03/25/2019 SUBJECTIVE: An 83-year-old white male was admitted for rapid atrial fibrillation and congestive heart failure, systolic. The patient had 24 hours of lightheadedness and dizziness from walking with severe headache, was treated with Tylenol. The patient also had an elevated BUN and creatinine of 50 and 1.5. He is taken off his spironolactone and taken off his Lasix. He remains on his Entresto and verapamil. He is slightly less dizzy and lightheaded today. We will hold his spironolactone and Lasix today. PHYSICAL EXAMINATION: CHEST: Clear to auscultation. HEART: Regular with controlled ventricular response today. EXTREMITIES: Without cyanosis, clubbing, or edema. IMPRESSION AND PLAN: Resolving rapid atrial fibrillations and heart failure. Slight elevation of BUN and creatinine secondary to his diuretics, will be held. We will follow up the patient closely. Possible discharge if the patient is able to ambulate without being lightheaded or dizzy. Brayan Taylor MD
--- NOTE | 2019-03-25 12:31 | CP.PCM.PN ---
<Anum Haley - Last Filed: 03/25/19 12:30> Subjective - Date & Time of Evaluation Date of Evaluation: 03/25/19 Time of Evaluation: 12:30 - Subjective Subjective: Podiatry Progress Note Dr. Chaudhary/Jc 83 y/o male seen at bedside for left lateral leg wound. Patient is AAO x 3 and NAD, resting comfortably in bed. Denies any acute overnight events or new pedal complaints. Denies any pain to the wound at this time. Denies any recent N/V/F/C/CP/SOB/D Objective - Vital Signs/Intake and Output Vital Signs (last 24 hours): Temp Pulse Resp BP Pulse Ox 97.3 F L 66 20 96/66 L 94 L 03/25/19 06:00 03/25/19 10:11 03/25/19 06:00 03/25/19 10:11 03/25/19 06:00 - Medications Medications: Current Medications Acetaminophen (Tylenol 325mg Tab) 650 mg PO Q6H PRN PRN Reason: Headache Last Admin: 03/25/19 08:48 Dose: 650 mg Aspirin (Ecotrin) 81 mg PO DAILY [facility] Last Admin: 03/25/19 10:10 Dose: 81 mg Atenolol (Tenormin) 12.5 mg PO BID [facility] Last Admin: 03/25/19 10:11 Dose: 12.5 mg Atorvastatin Calcium (Lipitor) 40 mg PO HS [facility] Last Admin: 03/24/19 21:37 Dose: 40 mg Cefpodoxime Proxetil (Vantin) 100 mg PO Q12 [facility]; Protocol Stop: 03/27/19 11:35 Last Admin: 03/25/19 10:10 Dose: 100 mg Clobetasol Propionate (Temovate 0.05%) 0 gm TOP BID [facility] Last Admin: 03/25/19 10:07 Dose: Not Given Collagenase (Santyl) 0 gm TOP DAILY [facility] Last Admin: 03/24/19 09:48 Dose: 1 applic Lactic Acid (Lac-Hydrin 12% Cream (140 G)) 0 ea TOP DAILY [facility] Last Admin: 03/24/19 09:49 Dose: 1 applic Sacubitril/Valsartan (Entresto 24 Mg-26 Mg Tablet) 1 each PO BID [facility] Last Admin: 03/25/19 10:07 Dose: Not Given Simethicone (Mylicon Liq) 40 mg PO QID [facility] Last Admin: 03/25/19 10:12 Dose: Not Given Verapamil HCl (Calan Tab) 40 mg PO TID [facility] Last Admin: 03/25/19 10:06 Dose: Not Given Verapamil HCl (Verapamil Inj) 2.5 mg IVP Q6H PRN PRN Reason: for heart rate >130 Warfarin Sodium (Coumadin) 6 mg PO 1800 [facility]; Protocol Last Admin: 03/22/19 18:32 Dose: 6 mg - Labs Labs: 03/24/19 12:15 03/24/19 12:15 PT 36.1 SECONDS (9.4-12.5) H 03/25/19 06:00 INR 3.19 03/25/19 06:00 APTT 36.2 Seconds (26.9-38.3) 03/16/19 09:30 - Constitutional Appears: Well, Non-toxic, No Acute Distress - Head Exam Head Exam: ATRAUMATIC, NORMOCEPHALIC - Extremities Exam Additional comments: Bilateral Lower Extremity Exam VASC: DP/PT pulses 2/4 bilaterally, CFT less than 3 seconds X 10, TG within normal limits from proximal to distal, mild lower extremity edema noted NEURO: epicritic and protective sensations grossly intact DERM: both legs with chronic skin changes due to peripheral vascular disease LEFT: ulceration measuring 3 cm X 2 cm X 0.3 cm noted to the lateral aspect of the left leg, no drainage, 50% fibrotic and 50% granular base, no erythema, no maceration, no probe to bone, no tracking, no tunneling, no malodor RIGHT: areas of healing and epithelialized wounds noted to the right leg, no clinical signs of infection MSK: Minimal pain on palpation of lateral left leg wound, improving. No gross deformities noted - Neurological Exam Neurological Exam: Alert, Awake, Oriented x3 - Psychiatric Exam Psychiatric exam: Normal Affect, Normal Mood Assessment and Plan - Assessment and Plan (Free Text) Assessment: 83M seen at bedside for left lateral leg wound Plan: Patient seen and evaluated with Dr. Chaudhary Plan discussed Continue abx per ID Left leg wound cx: Coag neg staph, E. cloacae Xray: no acute findings Wound dressed with Santyl, Mepilex No plan for surgical intervention at this time Podiatry will continue to follow while patient in house <Evelio Chaudhary - Last Filed: 03/25/19 18:21> Objective - Vital Signs/Intake and Output Vital Signs (last 24 hours): Temp Pulse Resp BP Pulse Ox 97.3 F L 79 20 102/64 94 L 03/25/19 06:00 03/25/19 17:54 03/25/19 06:00 03/25/19 17:54 03/25/19 06:00 - Medications Medications: Current Medications Acetaminophen (Tylenol 325mg Tab) 650 mg PO Q6H PRN PRN Reason: Headache Last Admin: 03/25/19 08:48 Dose: 650 mg Aspirin (Ecotrin) 81 mg PO DAILY [facility] Last Admin: 03/25/19 10:10 Dose: 81 mg Atenolol (Tenormin) 12.5 mg PO BID [facility] Last Admin: 03/25/19 17:53 Dose: 12.5 mg Atorvastatin Calcium (Lipitor) 40 mg PO HS [facility] Last Admin: 03/24/19 21:37 Dose: 40 mg Cefpodoxime Proxetil (Vantin) 100 mg PO Q12 [facility]; Protocol Stop: 03/27/19 11:35 Last Admin: 03/25/19 10:10 Dose: 100 mg Clobetasol Propionate (Temovate 0.05%) 0 gm TOP BID [facility] Last Admin: 03/25/19 17:44 Dose: Not Given Collagenase (Santyl) 0 gm TOP DAILY [facility] Last Admin: 03/24/19 09:48 Dose: 1 applic Lactic Acid (Lac-Hydrin 12% Cream (140 G)) 0 ea TOP DAILY [facility] Last Admin: 03/24/19 09:49 Dose: 1 applic Sacubitril/Valsartan (Entresto 24 Mg-26 Mg Tablet) 1 each PO BID [facility] Last Admin: 03/25/19 17:43 Dose: Not Given Simethicone (Mylicon Liq) 40 mg PO QID [facility] Last Admin: 03/25/19 17:45 Dose: 40 mg Verapamil HCl (Calan Tab) 40 mg PO TID [facility] Last Admin: 03/25/19 17:54 Dose: 40 mg Verapamil HCl (Verapamil Inj) 2.5 mg IVP Q6H PRN PRN Reason: for heart rate >130 Warfarin Sodium (Coumadin) 6 mg PO 1800 [facility]; Protocol Last Admin: 03/22/19 18:32 Dose: 6 mg - Labs Labs: 03/24/19 12:15 03/24/19 12:15 PT 36.1 SECONDS (9.4-12.5) H 03/25/19 06:00 INR 3.19 03/25/19 06:00 APTT 36.2 Seconds (26.9-38.3) 03/16/19 09:30 Attending/Attestation - Attestation I have personally seen and examined this patient.: Yes I have fully participated in the care of the patient.: Yes I have reviewed all pertinent clinical information, including history, physical exam and plan: Yes
--- NOTE | 2019-03-25 15:11 | PN ---
DATE: 03/25/2019 LOCATION: The patient is in room 364, bed 1. REASON FOR CONSULTATION AND FOLLOWUP: cardiomyopathy, coronary disease, as per Dr. Bourgeois non-ischemic type of cardiomyopathy. The patient was admitted with atrial fibrillation, rapid rate. SUBJECTIVE: The patient lying comfortable in bed without any chest pain, shortness of breath, or palpitation. OBJECTIVE: VITAL SIGNS: Blood pressure 96/66, respirations 20, pulse 66, and temperature 97.3. HEENT: Head is normocephalic. Eyes; pupils normal. Conjunctivae normal. Nose and throat normal. NECK: JVP low. Carotids equal. THORAX: AP diameter normal. LUNGS: Clear. CARDIOVASCULAR: S1 and S2. ABDOMEN: Soft and nontender. No organomegaly. EXTREMITIES: No clubbing. No cyanosis. LABORATORY DATA: WBC 9.0, hemoglobin 13.1, hematocrit 40.5, and platelet 149. Sodium 135, potassium 4.4, BUN 50 and creatinine 1.5. Calcium, phosphorus, magnesium are normal. Total protein and albumin normal. Random glucose 143. DIAGNOSES: Non-ischemic cardiomyopathy, chronic atrial fibrillation with rapid rate, no significant coronary artery disease as per Dr. Bourgeois who is following him as outpatient. The patient admitted with atrial fibrillation with rapid rate. History of cerebrovascular accident status post tissue plasminogen activator in the past. Noncompliant with medication. The patient on admission had acute decompensated congestive heart failure along with rapid rate atrial fibrillation, now that rate is well controlled. Recent echo showed ejection fraction of 35%, right ventricle moderately dilated, mild aortic regurgitation, [id number] mitral regurgitation, moderate tricuspid regurgitation. The patient's prothrombin time today 36.1 with INR of 3.19, yesterday INR was 3.71. Atrial fibrillation, rate controlled now. PLAN: The patient's INR is still elevated today, so we will continue to hold Coumadin. Repeat PT/INR in the morning. The patient is on verapamil 40 mg t.i.d., aspirin 81 mg daily, sacubitril/valsartan b.i.d., Lipitor 40 mg daily, 40 mg p.o. q.i.d., atenolol 12.5 mg .b.i.d., Vantin 100 mg p.o. every 12 hours. We will continue present therapy and we will check PT/INR in the morning. We will follow with you. Nino Cutler MD
--- NOTE | 2019-03-25 17:57 | RAD ---
Date of service: 03/25/2019 HISTORY: Compare to see improvement of CHF. COMPARISON: 03/16/2019. TECHNIQUE: Chest PA and lateral views FINDINGS: LUNGS: Resolution of pulmonary vascular congestion. PLEURA: Resolution of pleural effusion seen previously CARDIOVASCULAR: No aortic atherosclerotic calcification present. Persistent cardiomegaly. OSSEOUS STRUCTURES: No significant abnormalities. VISUALIZED UPPER ABDOMEN: Normal. OTHER FINDINGS: None. IMPRESSION: Cardiomegaly. Resolution of previously identified CHF.
--- NOTE | 2019-03-25 22:53 | PN ---
DATE: 03/25/2019 SUBJECTIVE: The patient seen earlier today, 364, bed 1. No fevers, no chills. No nausea. PHYSICAL EXAMINATION VITAL SIGNS: Temperature is 98, blood pressure is 102/60, respiratory rate of 18. HEENT: Unremarkable. NECK: Supple. LUNGS: Have decreased breath sounds. HEART: Normal S1, S2. ABDOMEN: Soft. LABORATORY EXAMINATION: Reveals a white count is 9, hemoglobin is noted, BUN of 50, creatinine of 1.5. Urinalysis is noted. Microbiology is noted. REVIEW OF ORDERS: Reveals the patient to be on p.o. Vantin and the patient had a chest x-ray today. Resolution of the vascular congestion. ASSESSMENT AND PLAN: This is an 83-year-old male who was seen earlier today with bilateral lower extremity skin and skin structure infection, coagulation-negative Enterobacter, cerebrovascular accident, received 7 days of Teflaro, now with p.o. Vantin, complete 3 days of p.o. Vantin. We will follow with you. Kenn Peres MD
[2019-03-26 06:58] LABS: INR 2.7; PROTHROMBIN TIME 30.5 SECONDS (9.4-12.5)
[2019-03-26] MEDS: SACUBITRIL 24mg/VALSARTAN 26mg tab PO SCH ×2 (09:46→18:14)
[2019-03-26] MEDS: Clobetasol 0.05% Oint(15 gm) TOP SCH ×2 (09:47→18:14)
[2019-03-26] MEDS: Ammonium Lactate 12% Cream (140 g) TOP SCH (09:47)
[2019-03-26] MEDS: Collagenase 250 Units/gm Ointment(30 gm) TOP SCH (09:47)
[2019-03-26] MEDS: Cefpodoxime (Vantin) 100 mg Tab PO SCH ×2 (09:48→21:47)
[2019-03-26] MEDS: Simethicone 40 mg/0.6 ml Liquid (30 ml) PO SCH ×4 (10:32→21:48)
--- NOTE | 2019-03-26 11:45 | CP.PCM.PN ---
Subjective - Date & Time of Evaluation Date of Evaluation: 03/26/19 Time of Evaluation: 11:44 - Subjective Subjective: Podiatry Progress Note Dr. Chaudhary/Jc 83 y/o male seen at bedside for left lateral leg wound. Patient is AAO x 3 and NAD, resting comfortably in bed. Denies any acute overnight events or new pedal complaints. Denies any pain to the wound at this time. Denies any recent N/V/F/C/CP/SOB/D Objective - Vital Signs/Intake and Output Vital Signs (last 24 hours): Temp Pulse Resp BP Pulse Ox 97.9 F 70 20 94/60 L 96 03/26/19 06:00 03/26/19 09:47 03/26/19 06:00 03/26/19 09:47 03/26/19 06:00 Intake and Output: 03/26/19 03/26/19 06:59 18:59 Intake Total 120 Output Total 400 Balance -280 - Medications Medications: Current Medications Acetaminophen (Tylenol 325mg Tab) 650 mg PO Q6H PRN PRN Reason: Headache Last Admin: 03/26/19 08:09 Dose: 650 mg Aspirin (Ecotrin) 81 mg PO DAILY [facility] Last Admin: 03/26/19 09:46 Dose: 81 mg Atenolol (Tenormin) 12.5 mg PO BID [facility] Last Admin: 03/26/19 09:47 Dose: 12.5 mg Atorvastatin Calcium (Lipitor) 40 mg PO HS [facility] Last Admin: 03/25/19 21:55 Dose: 40 mg Cefpodoxime Proxetil (Vantin) 100 mg PO Q12 [facility]; Protocol Stop: 03/27/19 11:35 Last Admin: 03/26/19 09:48 Dose: 100 mg Clobetasol Propionate (Temovate 0.05%) 0 gm TOP BID [facility] Last Admin: 03/26/19 09:47 Dose: Not Given Collagenase (Santyl) 0 gm TOP DAILY [facility] Last Admin: 03/26/19 09:47 Dose: Not Given Lactic Acid (Lac-Hydrin 12% Cream (140 G)) 0 ea TOP DAILY [facility] Last Admin: 03/26/19 09:47 Dose: Not Given Sacubitril/Valsartan (Entresto 24 Mg-26 Mg Tablet) 1 each PO BID [facility] Last Admin: 03/26/19 09:46 Dose: Not Given Simethicone (Mylicon Liq) 40 mg PO QID [facility] Last Admin: 03/26/19 10:32 Dose: 40 mg Verapamil HCl (Calan Tab) 40 mg PO TID [facility] Last Admin: 03/26/19 09:46 Dose: Not Given Verapamil HCl (Verapamil Inj) 2.5 mg IVP Q6H PRN PRN Reason: for heart rate >130 Warfarin Sodium (Coumadin) 6 mg PO 1800 [facility]; Protocol Last Admin: 03/22/19 18:32 Dose: 6 mg - Labs Labs: 03/24/19 12:15 03/24/19 12:15 PT 30.5 SECONDS (9.4-12.5) H 03/26/19 06:20 INR 2.70 03/26/19 06:20 APTT 36.2 Seconds (26.9-38.3) 03/16/19 09:30 - Constitutional Appears: Well, Non-toxic, No Acute Distress - Head Exam Head Exam: ATRAUMATIC, NORMOCEPHALIC - Extremities Exam Additional comments: Bilateral Lower Extremity Exam VASC: DP/PT pulses 2/4 bilaterally, CFT less than 3 seconds X 10, TG within normal limits from proximal to distal, mild lower extremity edema noted NEURO: epicritic and protective sensations grossly intact DERM: both legs with chronic skin changes due to peripheral vascular disease LEFT: ulceration measuring 3 cm X 2 cm X 0.3 cm noted to the lateral aspect of the left leg, no drainage, 50% fibrotic and 50% granular base, no erythema, no maceration, no probe to bone, no tracking, no tunneling, no malodor RIGHT: areas of healing and epithelialized wounds noted to the right leg, no clinical signs of infection MSK: Minimal pain on palpation of lateral left leg wound, improving. No gross deformities noted - Neurological Exam Neurological Exam: Alert, Awake, Oriented x3 - Psychiatric Exam Psychiatric exam: Normal Affect, Normal Mood Assessment and Plan - Assessment and Plan (Free Text) Assessment: 83M seen at bedside for left lateral leg wound Plan: Patient seen and evaluated with Dr. Chaudhary Plan discussed Continue abx per ID Left leg wound cx: Coag neg staph, E. cloacae Xray: no acute findings Wound dressed with Mepilex Santyl discontinued at this time No plan for surgical intervention at this time Podiatry will continue to follow while patient in house
--- NOTE | 2019-03-26 11:54 | CP.PCM.PN ---
Subjective - Date & Time of Evaluation Date of Evaluation: 03/26/19 Time of Evaluation: 06:50 - Subjective Subjective: Awake, no distress, feels hungry Reason for consultation and follow up: Cardiac evaluation and follow up rapid ventricular rate atrial fibrillation, history of chronic atrial fibrillation,on Coumadin, CHF, admitted for decompensated acute on chronic systolic dysfunction congestive heart failure and rapid ventricular rate atrial fibrillation Seen and examined by me and Dr. Harper Objective - Vital Signs/Intake and Output Vital Signs (last 24 hours): Temp Pulse Resp BP Pulse Ox 97.9 F 70 20 94/60 L 96 03/26/19 06:00 03/26/19 09:47 03/26/19 06:00 03/26/19 09:47 03/26/19 06:00 Intake and Output: 03/26/19 03/26/19 06:59 18:59 Intake Total 120 Output Total 400 Balance -280 - Medications Medications: Current Medications Acetaminophen (Tylenol 325mg Tab) 650 mg PO Q6H PRN PRN Reason: Headache Last Admin: 03/26/19 08:09 Dose: 650 mg Aspirin (Ecotrin) 81 mg PO DAILY [facility] Last Admin: 03/26/19 09:46 Dose: 81 mg Atenolol (Tenormin) 12.5 mg PO BID [facility] Last Admin: 03/26/19 09:47 Dose: 12.5 mg Atorvastatin Calcium (Lipitor) 40 mg PO HS [facility] Last Admin: 03/25/19 21:55 Dose: 40 mg Cefpodoxime Proxetil (Vantin) 100 mg PO Q12 [facility]; Protocol Stop: 03/27/19 11:35 Last Admin: 03/26/19 09:48 Dose: 100 mg Clobetasol Propionate (Temovate 0.05%) 0 gm TOP BID [facility] Last Admin: 03/26/19 09:47 Dose: Not Given Lactic Acid (Lac-Hydrin 12% Cream (140 G)) 0 ea TOP DAILY [facility] Last Admin: 03/26/19 09:47 Dose: Not Given Sacubitril/Valsartan (Entresto 24 Mg-26 Mg Tablet) 1 each PO BID [facility] Last Admin: 03/26/19 09:46 Dose: Not Given Simethicone (Mylicon Liq) 40 mg PO QID [facility] Last Admin: 04/25/19 10:32 Dose: 40 mg Verapamil HCl (Calan Tab) 40 mg PO TID [facility] Last Admin: 03/26/19 09:46 Dose: Not Given Verapamil HCl (Verapamil Inj) 2.5 mg IVP Q6H PRN PRN Reason: for heart rate >130 Warfarin Sodium (Coumadin) 6 mg PO 1800 [facility]; Protocol Last Admin: 03/22/19 18:32 Dose: 6 mg - Labs Labs: 03/24/19 12:15 03/24/19 12:15 PT 30.5 SECONDS (9.4-12.5) H 03/26/19 06:20 INR 2.70 03/26/19 06:20 APTT 36.2 Seconds (26.9-38.3) 03/16/19 09:30 - Constitutional Appears: Non-toxic, No Acute Distress - Eye Exam Eye Exam: Normal appearance - ENT Exam ENT Exam: Mucous Membranes Moist, Normal Exam - Respiratory Exam Respiratory Exam: Decreased Breath Sounds, Clear to Ausculation Bilateral, NORMAL BREATHING PATTERN - Cardiovascular Exam Cardiovascular Exam: +S1, +S2 - GI/Abdominal Exam GI & Abdominal Exam: Soft, Normal Bowel Sounds - Extremities Exam Extremities Exam: Full ROM, Normal Capillary Refill - Neurological Exam Neurological Exam: Alert, Awake, Oriented x3 - Psychiatric Exam Psychiatric exam: Normal Affect, Normal Mood - Skin Skin Exam: Dry, Normal Color, Warm Assessment and Plan - Assessment and Plan (Free Text) Assessment: An 83 year old male who came in to the ER due to shortness of breath and leg edema. 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 Admitted for rapid atrial fibrillation and admitted for decompensated acute on chronic systolic dysfunction congestive heart failure. Follows up with Dr. Bourgeois. As per Dr. Bourgeois, no significant coronary artery disease. Echo done and showed moderately impaired systolic dysfunction LVEF 35%, RV moderately dilated, mild aortic regurgitation, moderate to severe mitral regurgitation, mild tricuspid regurgitation RVSP 26 mmHg. Controlled atrial fibrillation. Denies shortness of breath. Podiatry on consult. Leg wound culture positive for Enterobacter clocae. ID on consult. Episode of lightheadedness yesterday so discharged was h eld. Cardiac status stable. Plan: He was supposed to be discharged yesterday however episode of lightheadedness while walking Cardiac status stable Denies shortness of breath Heart rate controlled rate Blood pressure stable On ASA 81 mg daily, Tenormin 12.5 mg BID, Lipitor 40 mg daily, Entresto 1 tab BID, Verapamil 40 mg TID, Coumadin 6 mg daily Continue current treatment Continue current medications Discharge planning Will follow up Plan and treatment discussed with Dr. Harper
--- NOTE | 2019-03-26 12:11 | PN ---
DATE: 03/26/2019 SUBJECTIVE: An 83-year-old white male who was admitted with rapid atrial fibrillation, congestive heart failure. The patient is improving, did have bump in his BUN and creatinine 250 and 1.5, repeat is pending. His diuretics are on hold. He is on Entresto and verapamil. His INR is down to 2.7, we will restart his Coumadin. We will try to transition the patient to TCU because of lightheadedness and dizziness and advanced age and need for deconditioning to establish better and control of his balance. PHYSICAL EXAMINATION: CHEST: Chest is clear to auscultation. HEART: Irregular rhythm, but controlled ventricular response. EXTREMITIES: Without cyanosis, clubbing, or edema. Brayan Tayolr MD
[2019-03-26] MEDS ORDERED: Oxycodone/Acetaminophen 5/325 mg Tab PO STA (12:30)
--- NOTE | 2019-03-26 12:36 | CT ---
Date of service: 03/26/2019 PROCEDURE: CT HEAD WITHOUT CONTRAST. HISTORY: Severe headache COMPARISON: None available. TECHNIQUE: Axial computed tomography images were obtained through the head/brain without intravenous contrast. Radiation dose: Total exam DLP = 993.12 mGy-cm. This CT exam was performed using one or more of the following dose reduction techniques: Automated exposure control, adjustment of the mA and/or kV according to patient size, and/or use of iterative reconstruction technique. FINDINGS: HEMORRHAGE: No intracranial hemorrhage. BRAIN: No mass effect or edema. There encephalomalacia in the right occipital lobe. There is moderate atrophy VENTRICLES: Unremarkable. No hydrocephalus. CALVARIUM: Unremarkable. PARANASAL SINUSES: Unremarkable as visualized. No significant inflammatory changes. MASTOID AIR CELLS: Unremarkable as visualized. No inflammatory changes. OTHER FINDINGS: None. IMPRESSION: There encephalomalacia in the right occipital lobe. There is moderate atrophy No acute intracranial findings
[2019-03-26 18:54] VITALS: TEMP 97.3
--- NOTE | 2019-03-26 22:45 | PN ---
DATE: 03/26/2019 SUBJECTIVE: The patient is seen in bed, in no acute distress, and nontoxic. PHYSICAL EXAMINATION: VITAL SIGNS: Temperature is 97, blood pressure is 119/80, respiratory rate of 18, and heart rate of 79. HEENT: Unremarkable. NECK: Supple. LUNGS: Decreased breath sounds. HEART: Normal S1 and S2. ABDOMEN: Soft. LABORATORY DATA: Reviewed. The patient had a CAT scan of the head. Dr. Taylor's note is reviewed. ASSESSMENT AND PLAN: This is an 83-year-old male who was seen earlier today, bilateral lower extremity skin, skin infection, Coagulase-negative Enterobacter, cerebrovascular accident, has received 7 days of Teflaro, currently on p.o. cefpodoxime to complete therapy. We will follow with you. Kenn Peres MD
[2019-03-27 06:32] LABS: INR 2.16; PROTHROMBIN TIME 24.4 SECONDS (9.4-12.5)
[2019-03-27 07:02] VITALS: RESP 20; O2SAT 95
[2019-03-27 09:10] LABS: BASO # 0.03 K/mm3 (0.0-2.0); BASO % 0.5 % (0.0-3.0); EOS # 0.2 (0.0-0.7); EOS % 2.5 % (1.5-5.0); HEMOGLOBIN 12.6 g/dL (14.0-18.0); MEAN CELL VOLUME 87.4 fl (80.0-105.0); MEAN CORPUSCULAR HEMOGLOBIN 27.4 pg (25.0-35.0); MEAN CORPUSCULAR HGB CONC 31.3 g/dl (31.0-37.0); MEAN PLATELET VOLUME 10.4 fl (7.0-11.0); MONO # 0.6 (0.1-0.6); MONO % 9.4 % (1.0-6.0); RBC 4.6 10^6/uL (3.5-6.1); RED CELL DISTRIBUTION WIDTH 15.1 % (11.5-14.5); WHITE BLOOD COUNT 6.4 10^3/uL (4.5-11.0)
[2019-03-27 09:19] LABS: BLOOD UREA NITROGEN 33 mg/dL (7-21); CALCIUM 8.7 mg/dL (8.4-10.5); GFR NON-AFRICAN AMERICAN > 60
[2019-03-27] MEDS: Ammonium Lactate 12% Cream (140 g) TOP SCH (10:55)
[2019-03-27] MEDS: SACUBITRIL 24mg/VALSARTAN 26mg tab PO SCH (10:55)
[2019-03-27] MEDS: Clobetasol 0.05% Oint(15 gm) TOP SCH (10:56)
[2019-03-27] MEDS: Cefpodoxime (Vantin) 100 mg Tab PO SCH (10:56)
--- NOTE | 2019-03-27 11:45 | CP.PCM.PN ---
<Anum Haley - Last Filed: 03/27/19 11:43> Subjective - Date & Time of Evaluation Date of Evaluation: 03/27/19 Time of Evaluation: 11:44 - Subjective Subjective: Podiatry Progress Note Dr. Chaudhary/Jc 83 y/o male seen at bedside for left lateral leg wound. Patient is AAO x 3 and NAD, resting comfortably in bed. Denies any acute overnight events or new pedal complaints. Denies any pain to the wound at this time. Denies any recent N/V/F/C/CP/SOB/D. Patient states headache has improved since yesterday Objective - Vital Signs/Intake and Output Vital Signs (last 24 hours): Temp Pulse Resp BP Pulse Ox 97.3 F L 82 20 115/68 95 03/27/19 06:00 03/27/19 10:56 03/27/19 06:00 03/27/19 10:56 03/27/19 06:00 Intake and Output: 03/27/19 03/27/19 06:59 18:59 Intake Total 120 Output Total 300 Balance -180 - Medications Medications: Current Medications Acetaminophen (Tylenol 325mg Tab) 650 mg PO Q6H PRN PRN Reason: Headache Last Admin: 03/26/19 21:47 Dose: 650 mg Aspirin (Ecotrin) 81 mg PO DAILY [facility] Last Admin: 03/27/19 10:55 Dose: 81 mg Atenolol (Tenormin) 12.5 mg PO BID [facility] Last Admin: 03/27/19 10:56 Dose: 12.5 mg Atorvastatin Calcium (Lipitor) 40 mg PO HS [facility] Last Admin: 03/26/19 21:47 Dose: 40 mg Clobetasol Propionate (Temovate 0.05%) 0 gm TOP BID [facility] Last Admin: 03/27/19 10:56 Dose: Not Given Lactic Acid (Lac-Hydrin 12% Cream (140 G)) 0 ea TOP DAILY [facility] Last Admin: 03/27/19 10:55 Dose: Not Given Sacubitril/Valsartan (Entresto 24 Mg-26 Mg Tablet) 1 each PO BID [facility] Last Admin: 03/27/19 10:55 Dose: Not Given Simethicone (Mylicon Liq) 40 mg PO QID [facility] Last Admin: 03/26/19 21:48 Dose: Not Given Verapamil HCl (Calan Tab) 40 mg PO TID [facility] Last Admin: 03/27/19 10:55 Dose: 40 mg Verapamil HCl (Verapamil Inj) 2.5 mg IVP Q6H PRN PRN Reason: for heart rate >130 Warfarin Sodium (Coumadin) 6 mg PO 1800 JOSEPH; Protocol Last Admin: 03/22/19 18:32 Dose: 6 mg - Labs Labs: 03/27/19 07:15 03/27/19 07:15 PT 24.4 SECONDS (9.4-12.5) H 03/27/19 06:00 INR 2.16 03/27/19 06:00 APTT 36.2 Seconds (26.9-38.3) 03/16/19 09:30 - Constitutional Appears: Well, Non-toxic, No Acute Distress - Head Exam Head Exam: ATRAUMATIC, NORMOCEPHALIC - Extremities Exam Additional comments: Bilateral Lower Extremity Exam VASC: DP/PT pulses 2/4 bilaterally, CFT less than 3 seconds X 10, TG within normal limits from proximal to distal, mild lower extremity edema noted NEURO: epicritic and protective sensations grossly intact DERM: both legs with chronic skin changes due to peripheral vascular disease LEFT: ulceration measuring 3 cm X 2 cm X 0.3 cm noted to the lateral aspect of the left leg, no drainage, 50% fibrotic and 50% granular base, no erythema, no maceration, no probe to bone, no tracking, no tunneling, no malodor RIGHT: areas of healing and epithelialized wounds noted to the right leg, no clinical signs of infection MSK: Minimal pain on palpation of lateral left leg wound, improving. No gross deformities noted - Neurological Exam Neurological Exam: Alert, Awake, Oriented x3 - Psychiatric Exam Psychiatric exam: Normal Affect, Normal Mood Assessment and Plan - Assessment and Plan (Free Text) Assessment: 83M seen at bedside for left lateral leg wound Plan: Patient seen and evaluated with Dr. Chaudhary Plan discussed Continue abx per ID Left leg wound cx: Coag neg staph, E. cloacae Xray: no acute findings Wound dressed with Mepilex No plan for surgical intervention at this time Podiatry will continue to follow while patient in house <Evelio Chaudhary - Last Filed: 03/28/19 08:39> Objective - Vital Signs/Intake and Output Vital Signs (last 24 hours): Temp Pulse Resp BP Pulse Ox 97.3 F L 69 20 113/76 95 03/27/19 06:00 03/27/19 14:59 03/27/19 06:00 03/27/19 14:59 03/27/19 06:00 - Labs Labs: 03/27/19 07:15 03/27/19 07:15 PT 24.4 SECONDS (9.4-12.5) H 03/27/19 06:00 INR 2.16 03/27/19 06:00 APTT 36.2 Seconds (26.9-38.3) 03/16/19 09:30 Attending/Attestation - Attestation I have personally seen and examined this patient.: Yes I have fully participated in the care of the patient.: Yes I have reviewed all pertinent clinical information, including history, physical exam and plan: Yes
--- NOTE | 2019-03-27 13:59 | CP.PCM.DIS ---
<ArjunBertin - Last Filed: 03/27/19 13:56> Provider - Provider Date of Admission: 03/16/19 10:19 Attending physician: Brayan Taylor MD Consults: 03/16/19 15:22 Case Management Referral Routine Comment: DISCHARGE PLANNING WITH ASSISTANCE AT HOME Physician Instructions: Reason For Exam: EVALUATION-LIVES ALONE Reason for Referral: Measurement Specialist Eval Inpatient MANAGER OF ADMINISTRATION Core Measures Referral Routine Comment: CHF Physician Instructions: Reason For Exam: EVALUATION Transition In Care/Readmission Reduction Routine Comment: Physician Instructions: Reason For Exam: EVALUATION 03/16/19 15:28 Nursing Referral for Palliative Care Routine Comment: Physician Instructions: Reason For Exam: EVALUATION Social Work Referral Routine Comment: NEEDS ASSISTANCE AT HOME,LIVES ALONE Physician Instructions: Reason For Exam: EVALUATION 03/16/19 22:16 Nursing Referral for Wound Care Routine Comment: Physician Instructions: Reason For Exam: met criteria 03/17/19 08:29 Physician Consult Routine Comment: Consulting Provider: Nino Harper Consulting Physician: Nino Harper Reason for Consult: a fib/chf 03/18/19 01:19 Nursing Referral for Wound Care Routine Comment: Physician Instructions: Reason For Exam: protocol 03/18/19 08:55 Physician Consult Routine Comment: Consulting Provider: Dania Greene Consulting Physician: Dania Greene Reason for Consult: stasis ilcer 03/18/19 12:07 Infectious Disease Consult Routine Comment: Consulting Provider: Kenn Peres Consulting Physician: Kenn Peres Reason for Consult: left leg ulcer 03/22/19 12:21 Nursing Referral for Wound Care Routine Comment: Physician Instructions: Reason For Exam: left headley ulcer 03/24/19 08:15 Evaluation for TRCU Routine Comment: Physician Instructions: Reason For Exam: DECONDITIONING/GAIT DISTURBANCE 03/26/19 11:48 Consult [Physician Consult] Routine Comment: Consulting Provider: Akbar Perez Consulting Physician: Akbar Perez Reason for Consult: headache 03/26/19 16:27 Nursing Referral for Wound Care Routine Comment: Physician Instructions: Reason For Exam: left headley wound Time Spent in preparation of Discharge (in minutes): 45 Hospital Course - Lab Results Lab Results: Micro Results 03/16/19 09:50 Blood Blood Culture - Final NO GROWTH AFTER 5 DAYS 03/16/19 09:50 Blood Gram Stain - Final TEST NOT PERFORMED 03/16/19 09:30 Blood Blood Culture - Final NO GROWTH AFTER 5 DAYS 03/16/19 09:30 Blood Gram Stain - Final TEST NOT PERFORMED 03/18/19 12:00 Leg - Left Gram Stain - Final 03/18/19 12:00 Leg - Left Wound Culture - Final Enterobacter Cloacae Ssp Cloac Coagulase Neg Staphylococcus Most Recent Lab Values WBC 6.4 10^3/uL (4.5-11.0) D 03/27/19 07:15 RBC 4.60 10^6/uL (3.5-6.1) 03/27/19 07:15 Hgb 12.6 g/dL (14.0-18.0) L 03/27/19 07:15 Hct 40.2 % (42.0-52.0) L 03/27/19 07:15 MCV 87.4 fl (80.0-105.0) 03/27/19 07:15 MCH 27.4 pg (25.0-35.0) 03/27/19 07:15 MCHC 31.3 g/dl (31.0-37.0) 03/27/19 07:15 RDW 15.1 % (11.5-14.5) H 03/27/19 07:15 Plt Count 180 10^3/uL (120.0-450.0) 03/27/19 07:15 MPV 10.4 fl (7.0-11.0) 03/27/19 07:15 Neut % (Auto) 72.6 % (50.0-68.0) H 03/27/19 07:15 Lymph % (Auto) 15.0 % (22.0-35.0) L 03/27/19 07:15 Gilliam % (Auto) 9.4 % (1.0-6.0) H 03/27/19 07:15 Eos % (Auto) 2.5 % (1.5-5.0) 03/27/19 07:15 Baso % (Auto) 0.5 % (0.0-3.0) 03/27/19 07:15 Lymph # (Auto) 1.0 (1.2-3.4) L 03/27/19 07:15 Gilliam # (Auto) 0.6 (0.1-0.6) 03/27/19 07:15 Eos # (Auto) 0.2 (0.0-0.7) 03/27/19 07:15 Baso # (Auto) 0.03 K/mm3 (0.0-2.0) 03/27/19 07:15 Absolute Neuts (auto) 4.63 (1.4-6.5) 03/27/19 07:15 Neutrophils % (Manual) 87 % (50.0-70.0) H 03/20/19 06:50 Lymphocytes % (Manual) 11 % (22.0-35.0) L 03/20/19 06:50 Monocytes % (Manual) 2 % (1.0-6.0) 03/20/19 06:50 Platelet Evaluation Normal (NORMAL) 03/20/19 06:50 PT 24.4 SECONDS (9.4-12.5) H 03/27/19 06:00 INR 2.16 03/27/19 06:00 APTT 36.2 Seconds (26.9-38.3) 03/16/19 09:30 pO2 116 mm/Hg (30-55) H 03/16/19 13:50 VBG pH 7.45 (7.32-7.43) H 03/16/19 13:50 VBG pCO2 48.0 (40-60) 03/16/19 13:50 VBG HCO3 33.4 mmol/l (21-28) H 03/16/19 13:50 VBG Total CO2 34.9 mmol.L (22-28) H 03/16/19 13:50 VBG O2 Sat (Calc) 99.4 % (40-65) H 03/16/19 13:50 VBG Base Excess 8.1 mmol/L (0.0-2.0) H 03/16/19 13:50 VBG Potassium 4.1 mmol/L (3.6-5.2) 03/16/19 13:50 Sodium 140.0 mmol/L (132-148) 03/16/19 13:50 Chloride 105.0 mmol/L (98-107) 03/16/19 13:50 Glucose 138 mg/dl (75-110) H 03/16/19 13:50 Lactate 1.2 mmol/L (0.7-2.1) 03/16/19 13:50 FiO2 21.0 % 03/16/19 13:50 Crit Value Called To Rn 03/16/19 09:40 Crit Value Called By Ec 03/16/19 09:40 Blood Gas Notified Time 955 03/16/19 09:40 Sodium 137 mmol/L (132-148) 03/27/19 07:15 Potassium 5.1 mmol/L (3.6-5.0) H 03/27/19 07:15 Chloride 103 mmol/L (98-107) 03/27/19 07:15 Carbon Dioxide 28 mmol/L (21-33) 03/27/19 07:15 Anion Gap 11 (10-20) 03/27/19 07:15 BUN 33 mg/dL (7-21) H 03/27/19 07:15 Creatinine 1.1 mg/dl (0.8-1.5) 03/27/19 07:15 Est GFR ( Amer) > 60 03/27/19 07:15 Est GFR (Non-Af Amer) > 60 03/27/19 07:15 Random Glucose 69 mg/dL (70-110) L 03/27/19 07:15 Hemoglobin A1c 5.6 % (4.2-6.5) 03/18/19 06:15 Calcium 8.7 mg/dL (8.4-10.5) 03/27/19 07:15 Phosphorus 2.7 mg/dL (2.5-4.5) 03/24/19 12:15 Magnesium 2.2 mg/dL (1.7-2.2) 03/24/19 12:15 Total Bilirubin 0.8 mg/dL (0.2-1.3) 03/24/19 12:15 AST 39 U/L (17-59) 03/24/19 12:15 ALT < 6 U/L (7-56) L 03/24/19 12:15 Alkaline Phosphatase 48 U/L (38-126) 03/24/19 12:15 Troponin I 0.02 ng/mL 03/21/19 02:00 NT-Pro-B Natriuret Pep 4170 pg/mL (0-450) H 03/16/19 09:30 Total Protein 6.3 g/dL (5.8-8.3) 03/24/19 12:15 Albumin 3.3 g/dL (3.0-4.8) 03/24/19 12:15 Globulin 3.0 gm/dL 03/24/19 12:15 Albumin/Globulin Ratio 1.1 (1.1-1.8) 03/24/19 12:15 Triglycerides 53 mg/dL (35-160) 03/18/19 06:10 Cholesterol 92 mg/dL (130-200) L 03/18/19 06:10 LDL Cholesterol Direct 39 mg/dL (0-129) 03/18/19 06:10 HDL Cholesterol 43 mg/dL (29-60) 03/18/19 06:10 TSH 3rd Generation 2.49 mIU/mL (0.46-4.68) 03/18/19 06:15 Venous Blood Potassium 4.1 mmol/L (3.6-5.2) 03/16/19 13:50 Urine Color Yellow (YELLOW) 03/16/19 11:00 Urine Appearance Clear (CLEAR) 03/16/19 11:00 Urine pH 6.0 (4.7-8.0) 03/16/19 11:00 Ur Specific [place] 1.020 (1.005-1.035) 03/16/19 11:00 Urine Protein 30 mg/dL (<30 mg/dL) H 03/16/19 11:00 Urine Glucose (UA) Negative mg/dL (NEGATIVE) 03/16/19 11:00 Urine Ketones Negative mg/dL (NEGATIVE) 03/16/19 11:00 Urine Blood Negative (NEGATIVE) 03/16/19 11:00 Urine Nitrate Negative (NEGATIVE) 03/16/19 11:00 Urine Bilirubin Negative (NEGATIVE) 03/16/19 11:00 Urine Urobilinogen 1.0 E.U./dL (<1 E.U./dL) H 03/16/19 11:00 Ur Leukocyte Esterase Negative Jose/uL (NEGATIVE) 03/16/19 11:00 Urine RBC 0 - 2 /hpf (0-2) 03/16/19 11:00 Urine WBC 0 - 2 /hpf (0-6) 03/16/19 11:00 Ur Epithelial Cells 0 - 2 /hpf (0-5) 03/16/19 11:00 Urine Bacteria Few /hpf (NONE) 03/16/19 11:00 Discharge Exam - Head Exam Head Exam: ATRAUMATIC, NORMOCEPHALIC - Eye Exam Eye Exam: EOMI, Normal appearance, PERRL Pupil Exam: NORMAL ACCOMODATION, PERRL - Respiratory Exam Respiratory Exam: Clear to PA & Lateral, NORMAL BREATHING PATTERN, UNREMARKABLE - Cardiovascular Exam Cardiovascular Exam: Irregular Rhythm, +S1, +S2 - GI/Abdominal Exam GI & Abdominal Exam: Normal Bowel Sounds, Soft, Unremarkable. absent: Tenderness - Extremities Exam Extremities exam: normal inspection - Neurological Exam Neurological exam: Alert, CN II-XII Intact, Oriented x3, Reflexes Normal - Psychiatric Exam Psychiatric exam: Normal Affect, Normal Mood - Skin Additional comments: Left leg wound CDI Stasis dermatitis b/l Discharge Plan - Follow Up Plan Condition: STABLE Disposition: HOME/ ROUTINE Instructions: Heart Healthy Diet, Heart Failure, Adult (DC), Heart Failure and Atrial Fibrillation Additional Instructions: 1. Patient is to Follow up with PMD within 3-5 days 2. Patient has been provided medications to go home with along with instructions 3. patient is to follow up with [facility], Dr. Harper within 1 week 4. Patient is to Follow up with [facility] Dr. Greene within 1 week 5. Patient is to follow up with Dr. Perez as per PMD within 1-2 weeks. 6. Should symptoms change or worsen, please visit the nearest ED Referrals: Nino Harper MD [Staff Provider] - Brayan Taylor MD [Family Provider] - Dania Greene DPM [Staff Provider] - Akbar Perez MD [Staff Provider] - <Nicolas Jean-Baptiste S - Last Filed: 03/27/19 18:27> Provider - Provider Date of Admission: 03/16/19 10:19 Attending physician: Brayan Taylor MD Consults: 03/16/19 15:22 Case Management Referral Routine Comment: DISCHARGE PLANNING WITH ASSISTANCE AT HOME Physician Instructions: Reason For Exam: EVALUATION-LIVES ALONE Reason for Referral: Measurement Specialist Eval Inpatient MANAGER OF ADMINISTRATION Core Measures Referral Routine Comment: CHF Physician Instructions: Reason For Exam: EVALUATION Transition In Care/Readmission Reduction Routine Comment: Physician Instructions: Reason For Exam: EVALUATION 03/16/19 15:28 Nursing Referral for Palliative Care Routine Comment: Physician Instructions: Reason For Exam: EVALUATION Social Work Referral Routine Comment: NEEDS ASSISTANCE AT HOME,LIVES ALONE Physician Instructions: Reason For Exam: EVALUATION 03/16/19 22:16 Nursing Referral for Wound Care Routine Comment: Physician Instructions: Reason For Exam: met criteria 03/17/19 08:29 Physician Consult Routine Comment: Consulting Provider: Nino Harper Consulting Physician: Nino Harper Reason for Consult: a fib/chf 03/18/19 01:19 Nursing Referral for Wound Care Routine Comment: Physician Instructions: Reason For Exam: protocol 03/18/19 08:55 Physician Consult Routine Comment: Consulting Provider: Dania Greene Consulting Physician: Dania Greene Reason for Consult: stasis ilcer 03/18/19 12:07 Infectious Disease Consult Routine Comment: Consulting Provider: Kenn Peres Consulting Physician: Kenn Peres Reason for Consult: left leg ulcer 03/22/19 12:21 Nursing Referral for Wound Care Routine Comment: Physician Instructions: Reason For Exam: left headley ulcer 03/24/19 08:15 Evaluation for TRCU Routine Comment: Physician Instructions: Reason For Exam: DECONDITIONING/GAIT DISTURBANCE 03/26/19 11:48 Consult [Physician Consult] Routine Comment: Consulting Provider: Akbar Perez Consulting Physician: Akbar Perez Reason for Consult: headache 03/26/19 16:27 Nursing Referral for Wound Care Routine Comment: Physician Instructions: Reason For Exam: left headley wound Hospital Course - Lab Results Lab Results: Micro Results 03/16/19 09:50 Blood Blood Culture - Final NO GROWTH AFTER 5 DAYS 03/16/19 09:50 Blood Gram Stain - Final TEST NOT PERFORMED 03/16/19 09:30 Blood Blood Culture - Final NO GROWTH AFTER 5 DAYS 03/16/19 09:30 Blood Gram Stain - Final TEST NOT PERFORMED 03/18/19 12:00 Leg - Left Gram Stain - Final 03/18/19 12:00 Leg - Left Wound Culture - Final Enterobacter Cloacae Ssp Cloac Coagulase Neg Staphylococcus Most Recent Lab Values WBC 6.4 10^3/uL (4.5-11.0) D 03/27/19 07:15 RBC 4.60 10^6/uL (3.5-6.1) 03/27/19 07:15 Hgb 12.6 g/dL (14.0-18.0) L 03/27/19 07:15 Hct 40.2 % (42.0-52.0) L 03/27/19 07:15 MCV 87.4 fl (80.0-105.0) 03/27/19 07:15 MCH 27.4 pg (25.0-35.0) 03/27/19 07:15 MCHC 31.3 g/dl (31.0-37.0) 03/27/19 07:15 RDW 15.1 % (11.5-14.5) H 03/27/19 07:15 Plt Count 180 10^3/uL (120.0-450.0) 03/27/19 07:15 MPV 10.4 fl (7.0-11.0) 03/27/19 07:15 Neut % (Auto) 72.6 % (50.0-68.0) H 03/27/19 07:15 Lymph % (Auto) 15.0 % (22.0-35.0) L 03/27/19 07:15 Gilliam % (Auto) 9.4 % (1.0-6.0) H 03/27/19 07:15 Eos % (Auto) 2.5 % (1.5-5.0) 03/27/19 07:15 Baso % (Auto) 0.5 % (0.0-3.0) 03/27/19 07:15 Lymph # (Auto) 1.0 (1.2-3.4) L 03/27/19 07:15 Gilliam # (Auto) 0.6 (0.1-0.6) 03/27/19 07:15 Eos # (Auto) 0.2 (0.0-0.7) 03/27/19 07:15 Baso # (Auto) 0.03 K/mm3 (0.0-2.0) 03/27/19 07:15 Absolute Neuts (auto) 4.63 (1.4-6.5) 03/27/19 07:15 Neutrophils % (Manual) 87 % (50.0-70.0) H 03/20/19 06:50 Lymphocytes % (Manual) 11 % (22.0-35.0) L 03/20/19 06:50 Monocytes % (Manual) 2 % (1.0-6.0) 03/20/19 06:50 Platelet Evaluation Normal (NORMAL) 03/20/19 06:50 PT 24.4 SECONDS (9.4-12.5) H 03/27/19 06:00 INR 2.16 03/27/19 06:00 APTT 36.2 Seconds (26.9-38.3) 03/16/19 09:30 pO2 116 mm/Hg (30-55) H 03/16/19 13:50 VBG pH 7.45 (7.32-7.43) H 03/16/19 13:50 VBG pCO2 48.0 (40-60) 03/16/19 13:50 VBG HCO3 33.4 mmol/l (21-28) H 03/16/19 13:50 VBG Total CO2 34.9 mmol.L (22-28) H 03/16/19 13:50 VBG O2 Sat (Calc) 99.4 % (40-65) H 03/16/19 13:50 VBG Base Excess 8.1 mmol/L (0.0-2.0) H 03/16/19 13:50 VBG Potassium 4.1 mmol/L (3.6-5.2) 03/16/19 13:50 Sodium 140.0 mmol/L (132-148) 03/16/19 13:50 Chloride 105.0 mmol/L (98-107) 03/16/19 13:50 Glucose 138 mg/dl (75-110) H 03/16/19 13:50 Lactate 1.2 mmol/L (0.7-2.1) 03/16/19 13:50 FiO2 21.0 % 03/16/19 13:50 Crit Value Called To Rn 03/16/19 09:40 Crit Value Called By Ec 03/16/19 09:40 Blood Gas Notified Time 955 03/16/19 09:40 Sodium 137 mmol/L (132-148) 03/27/19 07:15 Potassium 5.1 mmol/L (3.6-5.0) H 03/27/19 07:15 Chloride 103 mmol/L (98-107) 03/27/19 07:15 Carbon Dioxide 28 mmol/L (21-33) 03/27/19 07:15 Anion Gap 11 (10-20) 03/27/19 07:15 BUN 33 mg/dL (7-21) H 03/27/19 07:15 Creatinine 1.1 mg/dl (0.8-1.5) 03/27/19 07:15 Est GFR ( Amer) > 60 03/27/19 07:15 Est GFR (Non-Af Amer) > 60 03/27/19 07:15 Random Glucose 69 mg/dL (70-110) L 03/27/19 07:15 Hemoglobin A1c 5.6 % (4.2-6.5) 03/18/19 06:15 Calcium 8.7 mg/dL (8.4-10.5) 03/27/19 07:15 Phosphorus 2.7 mg/dL (2.5-4.5) 03/24/19 12:15 Magnesium 2.2 mg/dL (1.7-2.2) 03/24/19 12:15 Total Bilirubin 0.8 mg/dL (0.2-1.3) 03/24/19 12:15 AST 39 U/L (17-59) 03/24/19 12:15 ALT < 6 U/L (7-56) L 03/24/19 12:15 Alkaline Phosphatase 48 U/L (38-126) 03/24/19 12:15 Troponin I 0.02 ng/mL 03/21/19 02:00 NT-Pro-B Natriuret Pep 4170 pg/mL (0-450) H 03/16/19 09:30 Total Protein 6.3 g/dL (5.8-8.3) 03/24/19 12:15 Albumin 3.3 g/dL (3.0-4.8) 03/24/19 12:15 Globulin 3.0 gm/dL 03/24/19 12:15 Albumin/Globulin Ratio 1.1 (1.1-1.8) 03/24/19 12:15 Triglycerides 53 mg/dL (35-160) 03/18/19 06:10 Cholesterol 92 mg/dL (130-200) L 03/18/19 06:10 LDL Cholesterol Direct 39 mg/dL (0-129) 03/18/19 06:10 HDL Cholesterol 43 mg/dL (29-60) 03/18/19 06:10 TSH 3rd Generation 2.49 mIU/mL (0.46-4.68) 03/18/19 06:15 Venous Blood Potassium 4.1 mmol/L (3.6-5.2) 03/16/19 13:50 Urine Color Yellow (YELLOW) 03/16/19 11:00 Urine Appearance Clear (CLEAR) 03/16/19 11:00 Urine pH 6.0 (4.7-8.0) 03/16/19 11:00 Ur Specific [place] 1.020 (1.005-1.035) 03/16/19 11:00 Urine Protein 30 mg/dL (<30 mg/dL) H 03/16/19 11:00 Urine Glucose (UA) Negative mg/dL (NEGATIVE) 03/16/19 11:00 Urine Ketones Negative mg/dL (NEGATIVE) 03/16/19 11:00 Urine Blood Negative (NEGATIVE) 03/16/19 11:00 Urine Nitrate Negative (NEGATIVE) 03/16/19 11:00 Urine Bilirubin Negative (NEGATIVE) 03/16/19 11:00 Urine Urobilinogen 1.0 E.U./dL (<1 E.U./dL) H 03/16/19 11:00 Ur Leukocyte Esterase Negative Jose/uL (NEGATIVE) 03/16/19 11:00 Urine RBC 0 - 2 /hpf (0-2) 03/16/19 11:00 Urine WBC 0 - 2 /hpf (0-6) 03/16/19 11:00 Ur Epithelial Cells 0 - 2 /hpf (0-5) 03/16/19 11:00 Urine Bacteria Few /hpf (NONE) 03/16/19 11:00 - Hospital Course Hospital Course: Pt seen and examined by me. I have reviewed the note of the medical insurance verifier and I agree with it. I have discussed the assessment and plan with the resident. I have reviewed the medications and the last labs.
[2019-03-27] MEDS: Simethicone 40 mg/0.6 ml Liquid (30 ml) PO SCH ×2 (14:59→15:23)
[2019-03-27 15:00] VITALS: BP 113/76; PULSE 69
--- NOTE | 2019-03-27 16:20 | CON ---
DATE: 03/27/2019 NEUROLOGY CONSULT: CHIEF COMPLAINT: Headache. HISTORY OF PRESENT ILLNESS: An 83-year-old man who came in with history of CHF, AFib on Coumadin, history of cerebrovascular accident x2 both treated with TPA, blood cancer, hypertension, GERD, with CAT scan of the head showing encephalomalacia in the right occipital lobe which represents the previous stroke in the past, he came in with admitted for rapid AFib and was decompensated acute on chronic systolic dysfunction, congestive heart failure. Echo was done, it showed mildly impaired systolic dysfunction LVEF of 35% with RV moderately dilated and moderately severe mitral regurgitation. His AFib was controlled. He was consulted for headache, which is on top of the head with diffuse pressure type, mostly cervicogenic in nature and will followup as an outpatient currently he has no headaches today. PAST MEDICAL HISTORY: As above. SOCIAL HISTORY: No illicit drug use, smoking, or EtOH abuse. REVIEW OF SYSTEMS: A 14-point review of systems is negative except as per the HPI. FAMILY HISTORY: Noncontributory. MEDICATIONS: Reviewed by nurses' reconciliation sheet. PHYSICAL EXAMINATION: VITAL SIGNS: Temperature 97.3, pulse of 80, blood pressure 115/68, respiration 20 and oxygen saturation 95% on room air. GENERAL: The patient is sitting up in bed, in no acute distress. HEENT: Head is atraumatic and normocephalic. PERRLA. Extraocular muscles intact. NECK: Supple. No JVD. No adenopathy noted. LUNGS: Clear to auscultation. No adventitious sounds. HEART: S1 and S2. Normal rate and rhythm. No murmurs, rubs or gallops. ABDOMEN: Soft and nontender. Nondistended. Bowel sounds present. EXTREMITIES: No clubbing. No cyanosis. Peripheral pulses 2+ felt bilaterally. NEURO: The patient is alert and oriented to person, place, month and year. Speech is fluent without any errors. Recall after 5 minutes 0/3. Poor attention span. Slow thought process. Cranial nerves II through XII are intact. Motor exam; moves all extremities equally. Toes are downgoing bilaterally. Sensory exam; light touch and pinprick, proprioception, and vibration are intact. DTRs are 2+ throughout and brisk at both knees and ankles. Coordination; [id number] is intact. No dysmetria noted. Gait is deferred for now. LABORATORY DATA: Sodium is 137, potassium 5.1, chloride 102, carbon dioxide 28, BUN of 32, creatinine 1.1 and random glucose 69. IMPRESSION: Headache is more of a cervicogenic type aggravated with underlying congestive heart failure, exacerbation. At this time, we will recommend, 1. Outpatient cervical muscle stretch and myofascial pain relief. 2. Continue with aspirin 81 and Lipitor 40 and Warfarin of 6 mg daily for stroke prevention and followup as an outpatient. Thank you for this consult. He is clinically stable for discharge. Akbar Perze MD
--- NOTE | 2019-03-28 08:46 | DS ---
HOSPITAL COURSE: The patient was seen and examined, I do agree with the note of the medical diagnostic radiographer. I was involved in the plan of care. The patient is currently comfortable. He is waiting to be seen by Dr. Perez from neurology. She is cleared by him for his headache. The patient will be discharged. The patient is currently comfortable. He has atrial fibrillation on anticoagulation. He has CVA, which is unchanged. He had acute CHF secondary to systolic dysfunction with EF of 35% that has improved. He is on verapamil for his atrial fibrillation. He is on Entresto, this will be continued. He is on Lasix for his CHF. He is going to finish his Vantin today for his Enterobacter from his left leg wound. His headache is improved. He is going to be discharged. Followup as an outpatient. This is coverage for Dr. Taylor. Nicolas Jean-Baptiste MD
--- NOTE | 2019-03-30 08:37 | PN ---
DATE: 03/27/2019 LOCATION: The patient is in room 364, bed 1. REASON FOR CONSULTATION AND FOLLOWUP: Nonischemic cardiomyopathy, coronary artery disease, as per Dr. Bourgeois the patient had nonischemic cardiomyopathy, atrial fibrillation. SUBJECTIVE: The patient denies any chest pain, shortness of breath, or palpitation. OBJECTIVE: VITAL SIGNS: Blood pressure 115/68, respirations 20, pulse 82, and temperature 97.3. HEENT: Head is normocephalic. Eyes, pupils normal. Conjunctivae normal. Nose and throat normal. NECK: JVP low. Carotids equal. THORAX: AP diameter normal. LUNGS: Clear. CARDIOVASCULAR: S1 and S2. ABDOMEN: Soft and nontender. No organomegaly. EXTREMITIES: No clubbing. No cyanosis. LABORATORY DATA: WBC 6.4, hemoglobin 12.6, hematocrit 40.2, and platelet 180. Sodium 137, potassium 5.1, BUN 33 and creatinine 1.1. Random glucose 69 and calcium 8.7, total protein and albumin were normal. Chest x-ray on 03/25/2019, cleared CHF. DIAGNOSES: Nonischemic cardiomyopathy, chronic atrial fibrillation, now the heart rate is controlled; history of cerebrovascular accident, tissue plasminogen activator was given for the cerebrovascular accident in the past, noncompliant with medication; acute on chronic left ventricular systolic failure. Recent echo showed ejection fraction of 35%, right ventricle moderately dilated, mild aortic regurgitation, [id number] mitral regurgitation, moderate tricuspid regurgitation. Increased prothrombin time till 03/25/2019, yesterday was 2.70 and today 2.16. PLAN: The patient is started on warfarin 6 mg daily. The patient's chest x-ray was clear and we will start tomorrow Lasix 40 mg also repeat electrolytes and BUN in the morning, potassium 5.1 today. The patient will continue on verapamil 40 mg t.i.d., aspirin 81 mg daily. The patient is on sacubitril/valsartan twice daily, Lipitor 40 daily, atenolol 12.5 mg b.i.d., Vantin 100 mg p.o. every 12 hours. We will repeat labs in the morning and start Lasix 40 p.o. daily starting tomorrow. We will follow with you. Heart rate is INCOMPLETE DICTATION Nino Cutler MD [facility] # [id number]
--- NOTE | 2019-03-30 08:48 | PN ---
DATE: 03/27/2019 SUBJECTIVE: The patient is in bed, in no acute distress, nontoxic. No fevers. He was seen early this morning in room 364. PHYSICAL EXAMINATION. VITAL SIGNS: Temperature is 97, blood pressure is 113/70, respiratory rate of 18. HEENT: Unremarkable. NECK: Supple. LUNGS: Decreased breath sounds. HEART: Normal S1 and S2. ABDOMEN: Soft, nontender. LABORATORY DATA: Reveals a white count of 6.4, hemoglobin of 12, BUN of 33, creatinine of 1.1. Urinalysis is noted. Microbiology is reviewed. ASSESSMENT AND PLAN: An 83-year-old male who was seen earlier today in room 364, bed 1 who has bilateral lower extremity skin and skin structure infection, coagulase-negative Enterobacter and history of cerebrovascular accident. He received 7 days of Teflaro to complete with p.o. therapy. The patient to follow up with private medical practitioner as outpatient. Kenn Peres MD
== END 2019-03-27 18:44 | disposition home or self-care (01) | DRG 308 ==
LOC: ED 09:07 → ERH 10:19 → 2RNO 14:17 → 3RNO 03-21 13:06
PROVIDERS: ADMIT Internal Medicine; ATTEND Internal Medicine
DX: I48.2 Chronic atrial fibrillation (principal); I50.23 Acute on chronic systolic (congestive) heart failure; L97.929 Non-pressure chronic ulcer of unspecified part of left lower leg with unspecified severity; L03.116 Cellulitis of left lower limb; L03.115 Cellulitis of right lower limb; Z68.41 Body mass index [BMI] 40.0-44.9, adult; E11.51 Type 2 diabetes mellitus with diabetic peripheral angiopathy without gangrene; I42.9 Cardiomyopathy, unspecified; I11.0 Hypertensive heart disease with heart failure; E78.5 Hyperlipidemia, unspecified; I25.10 Atherosclerotic heart disease of native coronary artery without angina pectoris; I87.2 Venous insufficiency (chronic) (peripheral); E66.01 Morbid (severe) obesity due to excess calories; E11.622 Type 2 diabetes mellitus with other skin ulcer; E78.00 Pure hypercholesterolemia, unspecified; I34.0 Nonrheumatic mitral (valve) insufficiency; K21.9 Gastro-esophageal reflux disease without esophagitis; Z79.01 Long term (current) use of anticoagulants; Z85.51 Personal history of malignant neoplasm of bladder; Z85.46 Personal history of malignant neoplasm of prostate; Z86.73 Personal history of transient ischemic attack (TIA), and cerebral infarction without residual deficits; Z91.14 Patient's other noncompliance with medication regimen; Z91.19 Patient's noncompliance with other medical treatment and regimen; Z87.891 Personal history of nicotine dependence

== ENCOUNTER 2019-03-27 20:36 | Inpatient (IN) | payer MEDICARE, OTHER ==
[2019-03-27 20:37] VITALS: PULSE 80
[2019-03-27 20:44] VITALS: BMI 43.2
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
[2019-03-27 21:53] LABS: HEMOGLOBIN 13.9 g/dL (14.0-18.0); MEAN CELL VOLUME 86.6 fl (80.0-105.0); MEAN CORPUSCULAR HEMOGLOBIN 28.3 pg (25.0-35.0); MEAN CORPUSCULAR HGB CONC 32.7 g/dl (31.0-37.0); RBC 4.91 10^6/uL (3.5-6.1); RED CELL DISTRIBUTION WIDTH 14.9 % (11.5-14.5); WHITE BLOOD COUNT 9.5 10^3/uL (4.5-11.0)
[2019-03-27 22:07] LABS: INR 1.9; PROTHROMBIN TIME 21.1 SECONDS (9.4-12.5)
[2019-03-27 22:17] LABS: B-TYPE NATRIURETIC PEPTIDE 6190 pg/mL (0-450); TROPONIN I < 0.01 ng/mL
[2019-03-27 22:20] LABS: ALB/GLOB RATIO 1.1 (1.1-1.8); ALBUMIN 3.9 g/dL (3.0-4.8); ALT/SGPT 13 U/L (7-56); AST/SGOT 56 U/L (17-59); BLOOD UREA NITROGEN 34 mg/dL (7-21); CALCIUM 9.2 mg/dL (8.4-10.5); GFR NON-AFRICAN AMERICAN 53
[2019-03-27] MEDS ORDERED: Insulin Regular 1 UNITS/0.01 ML ML IVP STA (23:03)
[2019-03-27] MEDS ORDERED: Dextrose 50% SYRINGE Inj (50 ml) IVP ONE (23:03)
--- NOTE | 2019-03-28 06:27 | CP.PCM.PN ---
Subjective - Date & Time of Evaluation Date of Evaluation: 03/28/19 Time of Evaluation: 06:27 - Subjective Subjective: Patient was picked at because I was asked by resident physician to sign an order for headache. Has no complaints now. Medical record was reviewed. This 83 year old male was admitted for sob, CHF,atrial fibrillation. Has PMH of HTN, chronic atrial fibrillation, CAD,CHF,HLD. Objective - Vital Signs/Intake and Output Vital Signs (last 24 hours): Temp Pulse Resp BP Pulse Ox 97.8 F 99 H 19 124/68 98 03/27/19 20:54 03/28/19 02:17 03/28/19 02:17 03/28/19 00:04 03/28/19 00:04 - Medications Medications: Current Medications Acetaminophen (Tylenol 325mg Tab) 650 mg PO Q6H PRN PRN Reason: Headache Last Admin: 03/28/19 02:52 Dose: 650 mg - Labs Labs: 03/27/19 21:47 03/27/19 21:47 PT 21.1 SECONDS (9.4-12.5) H 03/27/19 21:47 INR 1.90 03/27/19 21:47 APTT 35.0 Seconds (26.9-38.3) 03/27/19 21:47 - Constitutional Appears: Well - Head Exam Head Exam: ATRAUMATIC, NORMAL INSPECTION, NORMOCEPHALIC - Eye Exam Eye Exam: Normal appearance - ENT Exam ENT Exam: Normal External Ear Exam - Neck Exam Neck Exam: Normal Inspection - Respiratory Exam Respiratory Exam: NORMAL BREATHING PATTERN - Cardiovascular Exam Cardiovascular Exam: absent: JVD - GI/Abdominal Exam GI & Abdominal Exam: Distended - Rectal Exam Rectal Exam: Deferred - Exam Additional comments: Deferred. - Extremities Exam Extremities Exam: Normal Inspection - Back Exam Back Exam: NORMAL INSPECTION - Neurological Exam Neurological Exam: Alert, Awake, Oriented x3 - Psychiatric Exam Psychiatric exam: Normal Affect, Normal Mood - Skin Skin Exam: Normal Color Assessment and Plan - Assessment and Plan (Free Text) Assessment: Headache. CHF HTN HLD Atrial fibrillation. Obesity. Plan: Tylenol 650 mg po as ordered. Continue present management.
--- NOTE | 2019-03-28 09:29 | RAD ---
Date of service: 03/27/2019 HISTORY: sob COMPARISON: Chest radiograph dated 03/25/2019. TECHNIQUE: 1 view obtained. FINDINGS: LUNGS: Stable chronic prominence of the bilateral interstitial markings. No focal consolidation. PLEURA: No significant pleural effusion identified, no pneumothorax apparent. CARDIOVASCULAR: Aortic atherosclerotic calcifications. Cardiomediastinal silhouette stably enlarged. OSSEOUS STRUCTURES: Unchanged. VISUALIZED UPPER ABDOMEN: Partially imaged inferior vena cava filter. OTHER FINDINGS: None. IMPRESSION: No active disease.
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
[2019-03-28] MEDS: Tetrahydrozoline Opht 0.05% Sol (15 ml) OU SCH (12:00)
--- NOTE | 2019-03-28 15:04 | CARD ---
APPROVED REPORT Date of service: 03/27/2019 EKG Measurement Heart [id number] <Conclusion> Atrial fibrillation Abnormal ECG
[2019-03-28] MEDS: SACUBITRIL 24mg/VALSARTAN 26mg tab PO SCH (18:23)
[2019-03-28] MEDS: Ciprofloxacin 0.3% OPTH SOLN OS SCH (21:42)
--- NOTE | 2019-03-29 02:07 | HP ---
DATE OF EXAM: 03/28/2019 HISTORY OF PRESENT ILLNESS: The patient was seen and examined, I do agree with the note of the medical recruiter. I was involved in the plan of care. The patient was discharged yesterday and started having shortness of breath so he came in for further evaluation. He has acute CHF secondary to systolic dysfunction. The patient has atrial fibrillation, he is on Coumadin. His INR is subtherapeutic. The patient is on verapamil for rate control for his atrial fibrillation this will be continued. He is on Entresto, this will be continued as well as atenolol. He has finished his IV antibiotics for his left leg. He has coronary artery disease, hypertension, dyslipidemia. The patient going to continue with his medications from home. He is going to be on heart-healthy diet. I will place him on IV Lasix. He is on Lipitor for dyslipidemia. He was given Kayexalate for his hyperkalemia. His repeat potassium has improved at 4.7. Nicolas Jean-Baptiste MD
[2019-03-29] MEDS: SACUBITRIL 24mg/VALSARTAN 26mg tab PO SCH (09:48)
[2019-03-29] MEDS: Ciprofloxacin 0.3% OPTH SOLN OS SCH ×4 (09:49→21:31)
[2019-03-29] MEDS: Tetrahydrozoline Opht 0.05% Sol (15 ml) OU SCH (09:50)
[2019-03-29] MEDS ORDERED: Oxycodone/Acetaminophen 5/325 mg Tab PO ONE (10:20)
[2019-03-29 12:04] VITALS: RESP 18
[2019-03-29] MEDS ORDERED: Simethicone 80 mg Chewtab PO ONE (22:50)
--- NOTE | 2019-03-30 00:50 | PN ---
DATE: 03/29/2019 SUBJECTIVE: Cosmo was readmitted after being discharged home. When he got home, patient developed severe shortness of breath,difficulty breathing. Patient was brought back to the emergency room by his brother. Patient is an 83-year-old white male with a history of chronic atrial fibrillation with new onset of systolic congestive heart failure, congestive cardiomyopathy, history of CVA in the past, on Coumadin. Patient was recently started on Entresto and verapamil to control his rapid atrial fibrillation, however, patient developed severe headaches unrelenting for many days while in the hospital. Patient also developed acute renal insufficiency with prerenal azotemia and was taken off his Lasix and spironolactone, however, he returned to the emergency room with very severe shortness of breath. He was given Lasix. He was hyperkalemic on admission. It was as high as 5.1, it is down to 4.7 today. Patient has less headache this morning. We will hold the Entresto for possible side effect of headache. Patient today has less shortness of breath, less dyspnea on exertion. PHYSICAL EXAMINATION: VITAL SIGNS: Stable. GENERAL: Shows a well-developed and slightly obese white male lying flat, in no apparent distress. CHEST: Clear to auscultation and percussion. HEART: Irregularly irregular with controlled ventricular response. EXTREMITIES: Without cyanosis or clubbing, just some chronic stasis dermatitis of upper and lower extremities. ABDOMEN: Obese, but benign. NECK: There is no JVD. IMPRESSION AND PLAN: Resolving congestive heart failure with patient with chronic atrial fibrillation, chronic congestive heart failure, plus severe headache possibly secondary to Entresto, and now hyperkalemia resolving. Brayan Taylor MD
--- NOTE | 2019-03-30 02:08 | CP.PCM.PN ---
Subjective - Date & Time of Evaluation Date of Evaluation: 03/30/19 Time of Evaluation: 02:06 - Subjective Subjective: Patient was seen at bedside. Resident physician had ordered simethicone for gas pain and I was asked to co- sign it. That is why I went to see patient. Patient is resting. Medical record was reviewed. 83 year old male was admitted for sob, ,atrial fibrillation, CHF. PMH of HTN, chronic atrial fibrillation, CAD,CHF,HLD. Objective - Vital Signs/Intake and Output Vital Signs (last 24 hours): Temp Pulse Resp BP Pulse Ox 98 F 57 L 18 104/62 95 03/30/19 00:01 03/30/19 00:01 03/30/19 00:01 03/30/19 00:01 03/30/19 00:01 Intake and Output: 03/29/19 03/30/19 18:59 06:59 Intake Total 1500 Output Total 1250 Balance 250 - Medications Medications: Current Medications Acetaminophen (Tylenol 325mg Tab) 650 mg PO Q6H PRN PRN Reason: Headache Last Admin: 03/29/19 19:57 Dose: 650 mg Aspirin (Ecotrin) 81 mg PO DAILY [facility] Last Admin: 03/29/19 09:47 Dose: 81 mg Atenolol (Tenormin) 12.5 mg PO BID [facility] Last Admin: 03/29/19 18:03 Dose: 12.5 mg Atorvastatin Calcium (Lipitor) 40 mg PO DIN [facility] Last Admin: 03/29/19 18:03 Dose: 40 mg Ciprofloxacin (Ciloxan 0.3% Ophth Soln) 1 drop OS QID [facility] Last Admin: 03/29/19 21:31 Dose: 1 drop Furosemide (Lasix) 40 mg IVP DAILY [facility] Last Admin: 03/29/19 09:48 Dose: 40 mg Sacubitril/Valsartan (Entresto 24 Mg-26 Mg Tablet) 1 each PO BID [facility] Last Admin: 03/29/19 09:48 Dose: 1 each Tetrahydrozoline HCl/Zinc Sulfate (Visine 0.05% Opht Soln) 0 ml OU DAILY [facility] Last Admin: 03/29/19 09:50 Dose: 1 drop Verapamil HCl (Calan Tab) 40 mg PO TID [facility] Last Admin: 03/29/19 18:02 Dose: 40 mg Warfarin Sodium (Coumadin) 6 mg PO 1800 [facility]; Protocol Last Admin: 03/29/19 18:02 Dose: 6 mg - Labs Labs: 03/27/19 21:47 03/28/19 09:20 PT 21.1 SECONDS (9.4-12.5) H 03/27/19 21:47 INR 1.90 03/27/19 21:47 APTT 35.0 Seconds (26.9-38.3) 03/27/19 21:47 - Constitutional Appears: Well, No Acute Distress - Head Exam Head Exam: ATRAUMATIC, NORMAL INSPECTION, NORMOCEPHALIC - Eye Exam Eye Exam: Normal appearance - ENT Exam ENT Exam: Normal External Ear Exam - Neck Exam Neck Exam: Normal Inspection - Respiratory Exam Respiratory Exam: NORMAL BREATHING PATTERN - Cardiovascular Exam Cardiovascular Exam: absent: JVD - GI/Abdominal Exam GI & Abdominal Exam: absent: Distended - Rectal Exam Rectal Exam: Deferred - Exam Additional comments: deferred. - Extremities Exam Extremities Exam: Normal Inspection - Back Exam Back Exam: NORMAL INSPECTION - Neurological Exam Additional comments: Resting. - Psychiatric Exam Additional comments: Resting. - Skin Skin Exam: Normal Color Assessment and Plan - Assessment and Plan (Free Text) Assessment: Dyspepsia. Atrial fibrillation. HTN CHF CAD Plan: Simethicone 80 mg PO x1. Continue present management.
[2019-03-30 06:24] VITALS: BP 101/66; TEMP 97.9; O2SAT 96
[2019-03-30] MEDS: Tetrahydrozoline Opht 0.05% Sol (15 ml) OU SCH (10:10)
[2019-03-30] MEDS: Ciprofloxacin 0.3% OPTH SOLN OS SCH (10:10)
[2019-03-30 10:18] VITALS: PULSE 85
--- NOTE | 2019-03-30 10:34 | PN ---
DATE: 03/30/2019 SUBJECTIVE: The patient was readmitted recently with shortness of breath, hyperkalemia. The patient's potassium has reduced. He was treated with Lasix and he was taken off his Entresto due to intractable headaches and hyperkalemia. The patient is stable today. He has no headache. Vital signs stable. PHYSICAL EXAMINATION: VITAL SIGNS: Blood pressure 101/60. CHEST: Clear to auscultation and percussion. HEART: Irregularly irregular. He is currently in paroxysmal atrial fibrillation. EXTREMITIES: Without cyanosis, clubbing, edema. SKIN: Chronic stasis dermatitis. ASSESSMENT AND PLAN: The patient will be discharged back to his home. He will stay with his brother temporarily. He will be followed up as an outpatient with , his medical bill processor. He will be taken off Entresto. He will be discharged home on atenolol, lisinopril 5 mg, and Lasix 20 mg and also restart his Coumadin. The patient's condition at this point is stable. Brayan Taylor MD
== END 2019-03-30 11:14 | disposition home or self-care (01) | DRG 292 ==
LOC: ED 20:36 → ERH 23:09 → 2RNO 03-28 01:03 → OBSVTOIN 03-28 18:10 → 2RNO 03-29 20:16
PROVIDERS: ADMIT Internal Medicine; ATTEND Internal Medicine
DX: I11.0 Hypertensive heart disease with heart failure (principal); D68.9 Coagulation defect, unspecified; I50.23 Acute on chronic systolic (congestive) heart failure; I42.0 Dilated cardiomyopathy; I48.2 Chronic atrial fibrillation; I25.10 Atherosclerotic heart disease of native coronary artery without angina pectoris; E11.51 Type 2 diabetes mellitus with diabetic peripheral angiopathy without gangrene; E87.5 Hyperkalemia; K21.9 Gastro-esophageal reflux disease without esophagitis; Z91.19 Patient's noncompliance with other medical treatment and regimen; Z86.73 Personal history of transient ischemic attack (TIA), and cerebral infarction without residual deficits; Z87.891 Personal history of nicotine dependence; Z85.46 Personal history of malignant neoplasm of prostate; Z79.01 Long term (current) use of anticoagulants; R51 Headache; E66.9 Obesity, unspecified; Z68.31 Body mass index [BMI] 31.0-31.9, adult; Z85.51 Personal history of malignant neoplasm of bladder; I83.029 Varicose veins of left lower extremity with ulcer of unspecified site; E78.5 Hyperlipidemia, unspecified; Z79.82 Long term (current) use of aspirin; Z92.3 Personal history of irradiation

== ENCOUNTER 2019-04-23 19:50 | Emergency (ER) | payer MEDICARE, OTHER ==
[2019-04-23 19:51] VITALS: PULSE 80; BMI 43.2
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
[2019-04-23 20:47] LABS: BASO # 0.01 K/mm3 (0.0-2.0); BASO % 0.1 % (0.0-3.0); EOS % 0.4 % (1.5-5.0); HEMOGLOBIN 12.8 g/dL (14.0-18.0); LYMPH # 0.4 (1.2-3.4); LYMPH % 3.8 % (22.0-35.0); MEAN CELL VOLUME 86.7 fl (80.0-105.0); MEAN CORPUSCULAR HEMOGLOBIN 27.8 pg (25.0-35.0); MEAN CORPUSCULAR HGB CONC 32.1 g/dl (31.0-37.0); MEAN PLATELET VOLUME 9.5 fl (7.0-11.0); MONO # 0.6 (0.1-0.6); MONO % 5.2 % (1.0-6.0); PLATELET COUNT 182 10^3/uL (120.0-450.0); RED CELL DISTRIBUTION WIDTH 16.3 % (11.5-14.5); WHITE BLOOD COUNT 10.7 10^3/uL (4.5-11.0)
[2019-04-23 21:00] LABS: INR 2.12; PARTIAL THROMBOPLASTIN TIME 34.5 Seconds (26.9-38.3); PROTHROMBIN TIME 23.5 SECONDS (9.4-12.5)
[2019-04-23 21:03] LABS: ALB/GLOB RATIO 1.2 (1.1-1.8); ALBUMIN 3.9 g/dL (3.0-4.8); ALT/SGPT 13 U/L (7-56); AST/SGOT 25 U/L (17-59); BLOOD UREA NITROGEN 18 mg/dL (7-21); CALCIUM 8.8 mg/dL (8.4-10.5); GFR NON-AFRICAN AMERICAN > 60
[2019-04-23 21:04] LABS: TROPONIN I < 0.01 ng/mL
[2019-04-23 21:10] LABS: LYMPHOCYTE 3 % (22.0-35.0); MONOCYTE 6 % (1.0-6.0); NEUTROPHIL 91 % (50.0-70.0)
[2019-04-23 21:11] LABS: PLATELET ESTIMATE NORMAL (NORMAL)
[2019-04-23 22:04] LABS: URINE APPEARANCE SLIGHT-CLOUDY (CLEAR); URINE BILIRUBIN NEGATIVE (NEGATIVE); URINE BLOOD LARGE (NEGATIVE); URINE COLOR YELLOW (YELLOW); URINE GLUCOSE (UA) NEGATIVE (NEGATIVE); URINE LEUKOCYTE ESTERASE SMALL Leu/uL (NEGATIVE); URINE PROTEIN 100 mg/dL (<30 mg/dL)
[2019-04-23 22:13] LABS: URINE BACTERIA SMALL /hpf; URINE EPITHELIAL CELLS 0 - 2 /hpf (0-5)
[2019-04-23 22:29] LABS: BARBITURATES, UR NEGATIVE (NEGATIVE); BENZODIAZEPINES, UR NEGATIVE (NEGATIVE); OPIATES, UR NEGATIVE (NEGATIVE); PHENCYCLIDINE, UR NEGATIVE (NEGATIVE)
[2019-04-23] MEDS ORDERED: Iohexol 350 MG/100 ML VIAL ONE (22:37)
[2019-04-23] MEDS ORDERED: Ciprofloxacin 400mg/200ml D5W 400 MG/200 ML BAG IVPB STA (23:05)
[2019-04-24 00:11] VITALS: BP 100/51; PULSE 100; RESP 24; TEMP 98.9; O2SAT 96
--- NOTE | 2019-04-24 18:23 | CARD ---
APPROVED REPORT Date of service: 04/23/2019 EKG Measurement Heart [id number] <Conclusion> Atrial fibrillation with rapid ventricular response Abnormal ECG
== END 2019-04-24 00:20 | disposition left against medical advice (07) ==
LOC: ED 19:50
DX: N39.0 Urinary tract infection, site not specified (principal); I48.91 Unspecified atrial fibrillation; Z79.01 Long term (current) use of anticoagulants; I25.10 Atherosclerotic heart disease of native coronary artery without angina pectoris; I50.9 Heart failure, unspecified; E11.9 Type 2 diabetes mellitus without complications; E78.5 Hyperlipidemia, unspecified; I10 Essential (primary) hypertension; Z85.51 Personal history of malignant neoplasm of bladder; Z86.73 Personal history of transient ischemic attack (TIA), and cerebral infarction without residual deficits; Z87.891 Personal history of nicotine dependence; Z85.46 Personal history of malignant neoplasm of prostate
CPT/HCPCS: 80053; 81001; 82948; 84484; 85025; 85378; 85610; 85730; 87086; 93005; 99285; G0480; Q9967